=== PATIENT | female | born 1930 | race Asian ===

== ENCOUNTER 2017-04-09 02:22 | Inpatient (IN) | payer MEDICARE, MEDICAID ==
[2017-04-09] VITALS (47 sets, daily range): BP systolic 56–109; BP diastolic 33–64
[~2017-04-09] VITALS: Ht 162.6 cm; Wt 56.7 kg
[~2017-04-09 02:22] MED LIST: ACETAMINOPHEN650 M2 GT; ARICEPT5 MG GT; ASPIR 8181 MG GT; CRESTOR10 M1 GT; CRESTOR10 M1 ORAL; DULCOLAX10 MG RC; HYDRALAZINE HCL25 M1 GT; METOPROLOL TART50 MG GT; MOM30 ML GT; NORVASC2.5 MG GT; TRAMADOL HCL50 MG GT; URECHOLINE10 MG GT
[2017-04-09] MEDS ORDERED: Piperacillin/Tazobactam 3.375 GM in D5W 110 ML IV STA (02:24)
--- NOTE | 2017-04-09 02:24 | Emergency Room Report ---
History of Present Illness General Chief Complaint: Fever Source: Family Member, Medical Record, EMS, PMD Present Illness HPI [id number] BIBEMS from SNF for sepsis Hypotension, "Fever all day." Patient is DNR/DNI Dr Echevarria PMD called for request for tele admission No other family members bedside to provide HPI Patient herself with dementia, non-verbal Allergies: Coded Allergies: No Known Allergies (Unverified , 04/09/17) Patient History Past Medical History: HTN, other - Alzheimers, dementia, HTN Past Surgical History: unable to obtain Pertinent Family History: unable to obtain Social History: Denies: alcohol use, drug use, smoking Last Menstrual Period: N/A Now: No Immunizations: UTD Reviewed Nursing Documentation: PMH: Agreed, PSxH: Agreed Nursing Documentation-PMH Hx Cerebrovascular Accident: Yes Review of Systems All Other Systems: limited - unable to provide. Dementia/Alzheimers Procedures Critical Care Time Critical Care Time 35 minutes 87 YOM with AMS VS c/w hypotension, tachycardia, febrile Sepsis criteria met BP improved with EMS provided fluid bolus with IVF, CA tylenol Airway patent. Not hypoxic. PLAN: IV access, labs, lactate, Blood/Urine Cx, Abx Tele vs [facility] CC time also includes review of labs, EMR, paperwork from SNF, d/w hospitalist Central Line Central Line : Consent: Written - With daughter Central Line Lumen: triple Maximal Sterile Barrier Tech: yes cap, yes mask, yes sterile gown, yes sterile gloves, yes large sterile sheet, yes hand hygiene, yes chlorhexidine prep No Max Barrier Tech Because: emergency insertion Anesthesia: Lidocaine Complications: none Central Line Post Position: sutured, good blood return, position confirmed w / CXR Attempts: One Patient Tolerated: Well Complications: None Medical Decision Making Medicare Attestation I Kimberlee Eisenberg MD hereby attest that the medical record entry for date of service, 09/02/16 accurately reflects signatures/notations that I made in my capacity as MD when I treated/diagnosed the above listed Medicare beneficiary. I attest that this information is true, accurate and complete to the best of my knowledge. I understand that any falsification, omission, or concealment of material fact may subject me to administrative, civil, or criminal liability. This patient warrants hospital admission for extreme of age and has a condition that cannot be treated as outpatient. Diagnostic Impression: Primary Impression: Fever Qualified Codes: R50.9 - Fever, unspecified Additional Impressions: SHAYNE (acute kidney injury) Septic shock UTI (urinary tract infection) Qualified Codes: N30.01 - Acute cystitis with hematuria ER Course Sepsis - VS initially hypotensive. Febrile. Hypoxic. - Patient DNR/DNI. Daughter is bedside. Does NOT want intubation. Agreeable for BIPAP for oxygenation. Set to [id number]. patient initially shaking/cold despite having fever. Was not breathing with the bipap so was given ativan 1mg with improvement in oxygenation - Tylenol given for fever - Patient's BP initially not responsive to IVF NS bolus so central line was placed. Discussed with daughter that this is considered intensive care, but is agreeable despite DNR order. - Levophed started for presumed septic shock - Empiric Abx given - Blood and Urine Cx pending - Labs: No leuks. H&H stable. Lactate 8.5. Mild SHAYNE and elevated LFTs. UA with UTI. Endorsed to Dr Roberts as health plan assigned hospitalist for [facility] admission at 426am. EKG Diagnostic Results Rate: normal, other - first degree block ST Segments: other - ST depressions in v4-6 ASA given to the pt in ED: No Rhythm Strip Diag. Results EP Interpretation: yes Rate: 95 Rhythm: NSR, other - Multiple PVCs Chest X-Ray Diagnostic Results Chest X-Ray Diagnostic Results : Chest X-Ray Ordered: Yes # of Views/Limited/Complete: 1 View Indication: Shortness of Breath EP Interpretation: Yes Interpretation: no consolidation, no effusion, no pneumothorax, no acute cardiopulmonary disease, other - Chronic interstitial disease Impression: Other - See above Interpreting ER Provider: Electronically signed by Dr Eisenberg Other X-Ray Diagnostic Results Other X-Ray Diagnostic Results : X-Ray ordered: CXR # of Views/Limited Vs Complete: 1 View Indication: Other - Central line placement EP Interpretation: Yes Interpretation: other - right central line placement appropriate Impression: No acute disease Status: improved Disposition: ADMITTED INPATIENT Condition: Critical KIMBERLEE EISENBERG M.D. Apr 09, 2017 02:24
[2017-04-09] MEDS ORDERED: NS 1000ml 1,700 ML IVLG ONE (02:30)
[2017-04-09] MEDS ORDERED: Vancomycin 1 GM in NS 275 ML IV ONE (02:30)
[2017-04-09] MEDS ORDERED: Zosyn 3.375gm inj ONE (02:39)
[2017-04-09] MEDS ORDERED: Acetaminophen 650mg/20.3ml ONE (03:13)
[2017-04-09 03:18] LABS: MEAN CORPUSCULAR HEMOGLOBIN 30.7 PG (27.0-31.0); MEAN CORPUSCULAR HGB CONC 31.7 G/DL (32.0-36.0); MEAN CORPUSCULAR VOLUME 97 FL (80-99); MEAN PLATELET VOLUME 6.5 FL (6.5-10.1); PLATELET COUNT 92 K/UL (150-450); RED BLOOD COUNT 4.58 M/UL (4.20-5.40); RED CELL DISTRIBUTION WIDTH 12.3 % (11.6-14.8); WHITE BLOOD COUNT 4.9 K/UL (4.8-10.8)
[2017-04-09 03:19] LABS: ALANINE AMINOTRANSFERASE 43 U/L (3-33); ALBUMIN/GLOBULIN RATIO 0.8 (1.0-2.7); ANION GAP 23 (5-15); ASPARTATE AMINO TRANSFERASE 118 U/L (5-40); CALCIUM 9.2 mg/dL (8.6-10.2); CARBON DIOXIDE 17 mEQ/L (20-30); CHLORIDE 100 mEQ/L (98-107); CREATININE 1.1 mg/dL (0.5-0.9); HEMOLYSIS 29; SODIUM 140 mEQ/L (135-145); TOTAL PROTEIN 6.7 g/dL (6.6-8.7)
[2017-04-09 03:20] LABS: REFLEX LACTIC ACID YES OR NO YES
[2017-04-09] MEDS ORDERED: LIPITOR10 MG ORAL (03:20)
[2017-04-09] MEDS ORDERED: PRO-STAT LIQUID30 ML GT (03:20)
[2017-04-09] MEDS ORDERED: SENNA8.6 M2 GT (03:20)
[2017-04-09] MEDS ORDERED: LORazepam Inj 2mg/ml 1ml ONE (03:21)
[2017-04-09] MEDS ORDERED: Lidocaine 1% Plain 30 ml INJ ONE (03:28)
[2017-04-09 03:29] LABS: APPEARANCE,URINE SLIGHTLY CLOUDY; KETONES,URINE NEGATIVE (NEGATIVE); LEUKOCYTE ESTERASE ,URINE 3+ (NEGATIVE); NITRITE,URINE POSITIVE (NEGATIVE); PH,URINE 8 (4.5-8.0); PROTEIN,URINE 3+ (NEGATIVE); UROBILINOGEN,URINE NORMAL MG/DL (0.0-1.0)
[2017-04-09] MEDS ORDERED: Vancomycin 1gm inj IVPB ONE (03:31)
[2017-04-09] MEDS ORDERED: Levophed 4mg/4mL Inj IV ONE ×2 (03:38→06:25)
[2017-04-09 03:46] LABS: TROPONIN I < 0.30 ng/mL (<=0.30)
[2017-04-09] MEDS ORDERED: Acetaminophen 650mg/20.3ml GT PRN (04:15)
[2017-04-09] MEDS ORDERED: LORazepam Inj 2mg/ml 1ml IV ONE (04:15)
[2017-04-09 04:31] LABS: BACTERIA,URINE MANY /HPF; RBC,URINE 20-30 /HPF (0 - 2); SQUAMOUS EPITHELIAL CELL,UR MANY /LPF (NONE/OCC); WBC,URINE TNTC /HPF (0 - 2)
[2017-04-09 04:32] LABS: CKMB 2.2 ng/mL (< 3.8)
[2017-04-09] MEDS ORDERED: DOPamine 400mg/250ml 250 ML IV ONE (04:39)
[2017-04-09] MEDS ORDERED: DOPamine 400mg/250ml 250 ML IV SCH (04:45)
[2017-04-09] MEDS ORDERED: Vasopressin 100 UNITS in NS 95 ML IV STA (05:37)
[2017-04-09] MEDS: DOPamine 400mg/250ml 250 ML IV SCH ×3 (05:45→09:58)
[2017-04-09 05:57] LABS: BILIRUBIN,DIRECT 0.4 mg/dL (0.1-0.3)
[2017-04-09 07:55] LABS: BAND NEUTROPHILS % (MANUAL) 11 % (0-8); BASOPHILS % (MANUAL) 0 % (0-2); EOSINOPHILS % (MANUAL) 0 % (0-3); LYMPHOCYTES % (MANUAL) 4 % (20-45); NEUTROPHILS % (MANUAL) 84 % (45-75); PLATELET ESTIMATE DECREASED; TOTAL CELLS COUNTED 100
[2017-04-09 07:56] LABS: PLATELET MORPHOLOGY NORMAL
[2017-04-09 09:26] LABS: REFLEX LACTIC ACID YES OR NO YES
[2017-04-09 09:48] LABS: ABG ALLEN TEST POSITIVE; ABG BASE EXCESS -10.3; ABG PCO2 28.6 mmHg (35.0-45.0)
--- NOTE | 2017-04-09 10:57 | Infectious Diseases Prog Note ---
Assessment/Plan Problems: (1) Septic shock Assessment & Plan: with refractory hypotension, will start zosyn and levaquin for double coverage , continue vancomycin renally dosed , continue fluids and pressors (2) UTI (urinary tract infection) Assessment & Plan: await culture, continue zosyn and levaquin (3) Acute respiratory failure Assessment & Plan: due to the above, on BIPAP, pulmonary is following, monitor ABG, and CXR (4) Shock liver Assessment & Plan: due to the above, monitor LFT, will screen for hepatitis (5) Fever Assessment & Plan: due to sepsis, continue tylenol and cooling measures (6) SHAYNE (acute kidney injury) Assessment & Plan: due to septic shock and hypotension, continue hydration and pressors, monitor UOP, renal is following Subjective Allergies: Coded Allergies: No Known Allergies (Unverified , 04/09/17) Objective Vital Signs Last 24 Hour Vital Signs Date Time Temp Pulse Resp B/P Pulse Ox O2 Delivery O2 Flow Rate FiO2 04/09/17 10:45 89 24 96/50 100 Bi-pap 60 04/09/17 09:58 54/37 04/09/17 09:57 54/37 04/09/17 09:29 106 30 100 Facial 60 04/09/17 09:15 108 24 92/52 100 Bi-pap 60 04/09/17 09:10 105 04/09/17 09:00 99.2 103 21 92/52 100 Bi-pap 60 04/09/17 08:45 104 23 89/56 100 Bi-pap 60 04/09/17 08:30 100.0 112 23 95/56 100 Bi-pap 60 04/09/17 08:30 99.3 105 25 104/48 100 Bi-pap 60 04/09/17 08:00 100.0 112 23 95/56 100 Bi-pap 60 04/09/17 07:45 106 24 97/52 100 Bi-pap 60 04/09/17 07:30 110 23 99/58 100 Bi-pap 60 04/09/17 07:30 100/64 04/09/17 07:29 110 24 100 Facial 60 04/09/17 07:15 111 24 100/64 100 Bi-pap 60 04/09/17 07:00 109/57 04/09/17 07:00 109/57 04/09/17 07:00 109 23 109/57 100 Bi-pap 60 04/09/17 07:00 60 04/09/17 06:45 116/63 04/09/17 06:45 116/63 04/09/17 06:20 100.3 112 23 95/55 100 60 04/09/17 05:30 126 22 100 Facial 60 04/09/17 05:22 104/43 04/09/17 05:12 109/53 04/09/17 05:07 102/47 04/09/17 05:02 94/42 04/09/17 05:02 100.3 04/09/17 05:01 100.3 82 16 97/50 100 Bi-pap 60 04/09/17 04:57 97/50 04/09/17 04:52 96/32 04/09/17 04:19 83/51 04/09/17 04:16 108/73 04/09/17 03:26 113 36 70 Facial 60 04/09/17 03:23 60 04/09/17 03:21 101.7 109 93/40 70 Bi-pap 60 04/09/17 02:15 99 30 83/48 95 Room Air Height (Feet): 5 Height (Inches): 5.00 Weight (Pounds): 125 Laboratory Tests Test 04/09/17 02:40 04/09/17 03:05 04/09/17 04:45 04/09/17 09:00 White Blood Count 4.9 K/UL (4.8-10.8) Red Blood Count 4.58 M/UL (4.20-5.40) Hemoglobin 14.1 G/DL (12.0-16.0) Hematocrit 44.5 % (37.0-47.0) Mean Corpuscular Volume 97 FL (80-99) Mean Corpuscular Hemoglobin 30.7 PG (27.0-31.0) Mean Corpuscular Hemoglobin Concent 31.7 G/DL (32.0-36.0) L Red Cell Distribution Width 12.3 % (11.6-14.8) Platelet Count 92 K/UL (150-450) L Mean Platelet Volume 6.5 FL (6.5-10.1) Neutrophils (%) (Auto) % (45.0-75.0) Lymphocytes (%) (Auto) % (20.0-45.0) Monocytes (%) (Auto) % (1.0-10.0) Eosinophils (%) (Auto) % (0.0-3.0) Basophils (%) (Auto) % (0.0-2.0) Differential Total Cells Counted 100 Neutrophils % (Manual) 84 % (45-75) H Lymphocytes % (Manual) 4 % (20-45) L Monocytes % (Manual) 1 % (1-10) Eosinophils % (Manual) 0 % (0-3) Basophils % (Manual) 0 % (0-2) Band Neutrophils 11 % (0-8) H Platelet Estimate Decreased L Platelet Morphology Normal Red Blood Cell Morphology Normal Sodium Level 140 mEQ/L (135-145) Potassium Level 4.0 mEQ/L (3.4-4.9) Chloride Level 100 mEQ/L (98-107) Carbon Dioxide Level 17 mEQ/L (20-30) L Anion Gap 23 (5-15) H Blood Urea Nitrogen 21 mg/dL (7-23) Creatinine 1.1 mg/dL (0.5-0.9) H Estimat Glomerular Filtration Rate mL/min (>60) Glucose Level 121 mg/dL (74-106) H Lactic Acid Level 8.50 mmol/L (0.66-2.22) H 9.30 mmol/L (0.66-2.22) H 8.00 mmol/L (0.66-2.22) H Calcium Level 9.2 mg/dL (8.6-10.2) Total Bilirubin 1.1 mg/dL (0.0-1.2) Direct Bilirubin 0.4 mg/dL (0.1-0.3) H Aspartate Amino Transf (AST/SGOT) 118 U/L (5-40) H Alanine Aminotransferase (ALT/SGPT) 43 U/L (3-33) H Alkaline Phosphatase 127 U/L (35-104) H Total Creatine Kinase 49 U/L (26-140) Creatine Kinase MB 2.2 ng/mL (< 3.8) Creatine Kinase MB Relative Index 4.4 Troponin I < 0.30 ng/mL (<=0.30) Total Protein 6.7 g/dL (6.6-8.7) Albumin 3.1 g/dL (3.5-5.2) L Globulin 3.6 g/dL Albumin/Globulin Ratio 0.8 (1.0-2.7) L Urine Color Yellow Urine Appearance Slightly cloudy Urine pH 8 (4.5-8.0) Urine Specific [place] 1.010 (1.005-1.035) Urine Protein 3+ (NEGATIVE) H Urine Glucose (UA) Negative (NEGATIVE) Urine Ketones Negative (NEGATIVE) Urine Occult Blood 5+ (NEGATIVE) H Urine Nitrite Positive (NEGATIVE) H Urine Bilirubin Negative (NEGATIVE) Urine Urobilinogen Normal MG/DL (0.0-1.0) Urine Leukocyte Esterase 3+ (NEGATIVE) H Urine RBC 20-30 /HPF (0 - 2) H Urine WBC Tntc /HPF (0 - 2) H Urine Squamous Epithelial Cells Many /LPF (NONE/OCC) H Urine Bacteria Many /HPF (NONE) H Test 04/09/17 09:30 Arterial Blood pH 7.314 (7.350-7.450) Arterial Blood Partial Pressure CO2 28.6 mmHg (35.0-45.0) L Arterial Blood Partial Pressure O2 240.3 mmHg (75.0-100.0) H Arterial Blood HCO3 14.4 mmol/L (22.0-26.0) L Arterial Blood Oxygen Saturation 99.4 % (92.0-98.0) H Arterial Blood Base Excess -10.3 Cam Test Positive Current Medications Medications (Trade) Dose Ordered Sig/Yissel Route PRN Reason Start Time Stop Time Status Last Admin Dose Admin Acetaminophen (Tylenol) 650 mg Q4H PRN ORAL Mild Pain (Pain Scale 1-3) 04/09/17 08:00 05/09/17 07:59 Dextrose STAT PRN IV Hypoglycemia 04/09/17 08:00 05/09/17 07:59 Dopamine HCl/ Dextrose 250 ml @ 0 mls/hr Q24H IV 04/09/17 09:30 05/09/17 09:29 04/09/17 09:58 Heparin Sodium (Porcine) (Heparin 5000 units/ml) 5,000 units EVERY 12 HOURS SUBQ 04/09/17 21:00 05/09/17 20:59 UNV Norepinephrine Bitartrate/ Dextrose (Levophed/D5W) 250 ml @ 0 mls/hr Q24H IV 04/09/17 09:30 05/09/17 09:29 04/09/17 09:57 Pantoprazole 40 mg 40 mg DAILY IVP 04/09/17 11:00 05/09/17 10:59 Piperacillin Sod/ Tazobactam Sod/ Dextrose (Zosyn/D5W) 110 ml @ 27.5 mls/hr Q8HR IVPB 04/09/17 12:00 04/16/17 11:59 Sodium Chloride (Sodium Chloride 1000ml bag) 1,000 ml @ 150 mls/hr Q6H40M IVLG 04/10/17 11:00 05/10/17 10:59 Vancomycin HCl 750 mg/Dextrose 275 ml @ 183.708 mls/hr Q24H IVPB 04/10/17 02:00 04/15/17 01:59 Vancomycin HCl 1 ea 1 ea DAILY PRN MISC Per rx protocol 04/09/17 10:30 05/09/17 10:29 Alberto Philip M.D. Apr 09, 2017 10:57
[2017-04-09] MEDS ORDERED: Pantoprazole Inj IVP SCH (11:00)
[2017-04-09] MEDS ORDERED: Zosyn 3.375gm q8h **Extended infusion IVPB SCH ×2 (12:00)
[2017-04-09] MEDS: Piperacillin/Tazobactam 4.5 GM in D5W 110 ML IVPB SCH ×2 (13:42→22:05)
[2017-04-09] MEDS ORDERED: Norepinephrine Bitartrate 8 MG in D5W 500ml 550 ML IV SCH ×2 (14:30→20:04)
--- NOTE | 2017-04-09 15:01 | Diagnostic Imaging Report ---
Indication: Post line placement Technique: One view of the chest Comparison: 1-1/2 hour earlier Findings: Interim placement right jugular central venous catheter, tip of which projects at level of the midsuperior vena cava. No gross pneumothorax is evident. There is central bronchial wall thickening and possible mild bronchiectasis again demonstrated. Heart is borderline enlarged. Tortuous ectatic calcified aorta Impression: Satisfactory right jugular central venous catheter placement, no radiographically evident complication COPD changes Borderline cardiomegaly This agrees with the preliminary interpretation provided by the emergency room physician
--- NOTE | 2017-04-09 15:02 | Diagnostic Imaging Report ---
Indication: SOB Technique: One view of the chest Comparison: 02/10/2013 Findings: Chronic appearing central interstitial prominence and bronchial wall thickening is again demonstrated. No acute infiltrates or effusions. The heart is mildly enlarged. Tortuous ectatic calcified aorta. No significant interim change Impression: No acute process. Findings as noted This agrees with the preliminary interpretation provided by the emergency room physician
--- NOTE | 2017-04-09 15:27 | History and Physical ---
History of Present Illness General Reason for Hospitalization: Fever Present Illness HPI This is an 87yr old female with a PMHx significant for HTN, dementia, and Alzheimer, who [facility] by the EMS under the direction of Dr Echevarria PCP for sepsis, hypotension and fever. Patient is DNR/ DNI. Pt is non verbal therefore information was obtained from medical records. In ED pt was found to have of Lactate 8.5. Mild SHAYNE and elevated LFTs. UA with UTI. Allergies: Coded Allergies: No Known Allergies (Unverified , 04/09/17) Medication History Scheduled Amino Acids/Protein Hydrolys (Pro-Stat Liquid), 30 ML GT DAILY, (Reported) Amlodipine Besylate (Norvasc), 2.5 MG GT DAILY, (Reported) Aspirin* (Aspir 81*), 81 MG GT DAILY, (Reported) Atorvastatin Calcium* (Lipitor*), 10 MG ORAL BEDTIME, (Reported) Bethanechol Chl (Bethanechol Chloride), 10 MG GT FOUR TIMES A DAY, (Reported) Donepezil Hcl* (Aricept*), 5 MG GT QHS, (Reported) Metoprolol Tartrate* (Metoprolol Tartrate*), 50 MG GT TID, (Reported) Rosuvastatin Calcium (Crestor), 10 MG GT QHS, (Reported) Scheduled PRN Acetaminophen (Acetaminophen 8 Hour), 650 MG GT QID PRN, (Reported) Bisacodyl (Dulcolax), 10 MG RC DAILY PRN, (Reported) Hydralazine Hcl* (Hydralazine Hcl*), 25 MG GT QID PRN, (Reported) Magnesium Hydroxide (Milk of Magnesia), 30 ML GT DAILY PRN, (Reported) Tramadol Hcl* (Ultram*), 50 MG GT QID PRN, (Reported) Miscellaneous Medications Sennosides (Senna), 8.6 MG GT, (Reported) Patient History Limited by: medical condition History Provided By: Medical Record Healthcare decision maker Resuscitation status Do Not Resuscitate Advanced Directive on File Yes Past Medical/Surgical History Past Medical/Surgical History: (1) HTN (hypertension) (2) Dementia (3) Alzheimer's dementia Social History Social History: (1) Lives in [facility] (2) Non-smoker (3) No history of alcohol use (4) No illicit drug use Review of Systems ROS Narrative Unobtainable Physical Exam General Appearance: no apparent distress HEENT: normocephalic, atraumatic Neck: non-tender, normal alignment Respiratory/Chest: decreased breath sounds, other - on BIPAP Cardiovascular/Chest: no JVD Abdomen: soft, no organomegaly Genitourinary/Rectal: woo, other Extremities: no edema, no cyanosis Skin Exam: warm/dry Neurologic: motor weakness Last 24 Hour Vital Signs Date Time Temp Pulse Resp B/P Pulse Ox O2 Delivery O2 Flow Rate FiO2 04/09/17 15:00 94 22 106/52 100 Bi-pap 40 04/09/17 14:55 98/62 04/09/17 14:30 98 22 92/49 100 Bi-pap 40 04/09/17 14:00 97 22 95/56 100 Bi-pap 40 04/09/17 13:30 92 22 98/48 100 Bi-pap 40 04/09/17 13:18 92 23 100 Facial 40 04/09/17 13:00 89 20 97/50 100 Bi-pap 40 04/09/17 12:40 88/45 04/09/17 12:30 98.9 93 21 80/44 100 Bi-pap 40 04/09/17 12:15 91 21 88/45 100 Bi-pap 40 04/09/17 12:00 40 04/09/17 12:00 91 21 90/47 100 Bi-pap 40 04/09/17 11:45 95 21 92/51 100 Bi-pap 40 04/09/17 11:30 91 21 96/48 100 Bi-pap 40 04/09/17 11:15 92 21 96/46 100 Bi-pap 60 04/09/17 11:09 91 22 100 Full Face 40 04/09/17 11:00 92 20 96/41 100 Bi-pap 60 04/09/17 11:00 40 04/09/17 10:45 89 24 96/50 100 Bi-pap 60 04/09/17 10:30 95 24 86/51 100 Bi-pap 60 04/09/17 10:15 95 24 71/42 100 Bi-pap 60 04/09/17 10:00 97 22 72/44 100 Bi-pap 60 04/09/17 09:58 54/37 04/09/17 09:57 54/37 04/09/17 09:45 87 22 56/33 100 Bi-pap 60 04/09/17 09:30 101 22 99/54 100 Bi-pap 60 04/09/17 09:29 106 30 100 Facial 60 04/09/17 09:15 108 24 92/52 100 Bi-pap 60 04/09/17 09:10 105 04/09/17 09:00 99.2 103 21 92/52 100 Bi-pap 60 04/09/17 08:45 104 23 89/56 100 Bi-pap 60 04/09/17 08:30 100.0 112 23 95/56 100 Bi-pap 60 04/09/17 08:30 99.3 105 25 104/48 100 Bi-pap 60 04/09/17 08:00 100.0 112 23 95/56 100 Bi-pap 60 04/09/17 07:45 106 24 97/52 100 Bi-pap 60 04/09/17 07:30 110 23 99/58 100 Bi-pap 60 04/09/17 07:30 100/64 04/09/17 07:29 110 24 100 Facial 60 04/09/17 07:15 111 24 100/64 100 Bi-pap 60 04/09/17 07:00 109/57 04/09/17 07:00 109/57 04/09/17 07:00 109 23 109/57 100 Bi-pap 60 04/09/17 07:00 60 04/09/17 06:45 116/63 04/09/17 06:45 116/63 04/09/17 06:20 100.3 112 23 95/55 100 60 04/09/17 05:30 126 22 100 Facial 60 04/09/17 05:22 104/43 04/09/17 05:12 109/53 04/09/17 05:07 102/47 04/09/17 05:02 94/42 04/09/17 05:02 100.3 04/09/17 05:01 100.3 82 16 97/50 100 Bi-pap 60 04/09/17 04:57 97/50 04/09/17 04:52 96/32 04/09/17 04:19 83/51 04/09/17 04:16 108/73 04/09/17 03:26 113 36 70 Facial 60 04/09/17 03:23 60 04/09/17 03:21 101.7 109 93/40 70 Bi-pap 60 04/09/17 02:15 99 30 83/48 95 Room Air Intake and Output 04/08/17 04/09/17 19:00 07:00 Intake Total 99.51 ml Output Total 1500 ml Balance -1400.49 ml Intake IV Total 99.51 ml Output Urine Total 1500 ml Laboratory Tests Test 04/09/17 02:40 04/09/17 03:05 04/09/17 04:45 04/09/17 09:00 White Blood Count 4.9 K/UL (4.8-10.8) Red Blood Count 4.58 M/UL (4.20-5.40) Hemoglobin 14.1 G/DL (12.0-16.0) Hematocrit 44.5 % (37.0-47.0) Mean Corpuscular Volume 97 FL (80-99) Mean Corpuscular Hemoglobin 30.7 PG (27.0-31.0) Mean Corpuscular Hemoglobin Concent 31.7 G/DL (32.0-36.0) L Red Cell Distribution Width 12.3 % (11.6-14.8) Platelet Count 92 K/UL (150-450) L Mean Platelet Volume 6.5 FL (6.5-10.1) Neutrophils (%) (Auto) % (45.0-75.0) Lymphocytes (%) (Auto) % (20.0-45.0) Monocytes (%) (Auto) % (1.0-10.0) Eosinophils (%) (Auto) % (0.0-3.0) Basophils (%) (Auto) % (0.0-2.0) Differential Total Cells Counted 100 Neutrophils % (Manual) 84 % (45-75) H Lymphocytes % (Manual) 4 % (20-45) L Monocytes % (Manual) 1 % (1-10) Eosinophils % (Manual) 0 % (0-3) Basophils % (Manual) 0 % (0-2) Band Neutrophils 11 % (0-8) H Platelet Estimate Decreased L Platelet Morphology Normal Red Blood Cell Morphology Normal Sodium Level 140 mEQ/L (135-145) Potassium Level 4.0 mEQ/L (3.4-4.9) Chloride Level 100 mEQ/L (98-107) Carbon Dioxide Level 17 mEQ/L (20-30) L Anion Gap 23 (5-15) H Blood Urea Nitrogen 21 mg/dL (7-23) Creatinine 1.1 mg/dL (0.5-0.9) H Estimat Glomerular Filtration Rate mL/min (>60) Glucose Level 121 mg/dL (74-106) H Lactic Acid Level 8.50 mmol/L (0.66-2.22) H 9.30 mmol/L (0.66-2.22) H 8.00 mmol/L (0.66-2.22) H Calcium Level 9.2 mg/dL (8.6-10.2) Total Bilirubin 1.1 mg/dL (0.0-1.2) Direct Bilirubin 0.4 mg/dL (0.1-0.3) H Aspartate Amino Transf (AST/SGOT) 118 U/L (5-40) H Alanine Aminotransferase (ALT/SGPT) 43 U/L (3-33) H Alkaline Phosphatase 127 U/L (35-104) H Total Creatine Kinase 49 U/L (26-140) Creatine Kinase MB 2.2 ng/mL (< 3.8) Creatine Kinase MB Relative Index 4.4 Troponin I < 0.30 ng/mL (<=0.30) Total Protein 6.7 g/dL (6.6-8.7) Albumin 3.1 g/dL (3.5-5.2) L Globulin 3.6 g/dL Albumin/Globulin Ratio 0.8 (1.0-2.7) L Urine Color Yellow Urine Appearance Slightly cloudy Urine pH 8 (4.5-8.0) Urine Specific [place] 1.010 (1.005-1.035) Urine Protein 3+ (NEGATIVE) H Urine Glucose (UA) Negative (NEGATIVE) Urine Ketones Negative (NEGATIVE) Urine Occult Blood 5+ (NEGATIVE) H Urine Nitrite Positive (NEGATIVE) H Urine Bilirubin Negative (NEGATIVE) Urine Urobilinogen Normal MG/DL (0.0-1.0) Urine Leukocyte Esterase 3+ (NEGATIVE) H Urine RBC 20-30 /HPF (0 - 2) H Urine WBC Tntc /HPF (0 - 2) H Urine Squamous Epithelial Cells Many /LPF (NONE/OCC) H Urine Bacteria Many /HPF (NONE) H Test 04/09/17 09:30 Arterial Blood pH 7.314 (7.350-7.450) Arterial Blood Partial Pressure CO2 28.6 mmHg (35.0-45.0) L Arterial Blood Partial Pressure O2 240.3 mmHg (75.0-100.0) H Arterial Blood HCO3 14.4 mmol/L (22.0-26.0) L Arterial Blood Oxygen Saturation 99.4 % (92.0-98.0) H Arterial Blood Base Excess -10.3 Cam Test Positive Height (Feet): 5 Height (Inches): 4.00 Weight (Pounds): 125 Medications Current Medications Medications (Trade) Dose Ordered Sig/Yissel Route PRN Reason Start Time Stop Time Status Last Admin Dose Admin Acetaminophen (Tylenol) 650 mg Q4H PRN ORAL Mild Pain (Pain Scale 1-3) 04/09/17 08:00 05/09/17 07:59 Albumin Human 50 ml @ 50 mls/hr Q1H IV 04/09/17 12:30 04/09/17 16:29 04/09/17 14:54 Dextrose STAT PRN IV Hypoglycemia 04/09/17 08:00 05/09/17 07:59 Dopamine HCl/ Dextrose (DOPamine 400mg/ 250ml) 250 ml @ 0 mls/hr Q24H IV 04/09/17 09:30 05/09/17 09:29 04/09/17 09:58 Heparin Sodium (Porcine) (Heparin 5000 units/ml) 5,000 units EVERY 12 HOURS SUBQ 04/09/17 21:00 05/09/17 20:59 UNV Levofloxacin 100 ml @ 100 mls/hr Q24H IVPB 04/09/17 12:00 04/16/17 11:59 04/09/17 13:00 Norepinephrine Bitartrate/ Dextrose (Levophed/D5W 500ml) 558 ml @ 0 mls/hr Q24H IV 04/09/17 14:30 05/09/17 14:29 04/09/17 14:55 Pantoprazole 40 mg 40 mg DAILY IVP 04/09/17 11:00 05/09/17 10:59 04/09/17 12:05 Piperacillin Sod/ Tazobactam Sod 4.5 gm/Dextrose 110 ml @ 27.5 mls/hr EVERY 8 HOURS IVPB 04/09/17 13:00 04/14/17 12:59 04/09/17 13:42 Sodium Chloride (Sodium Chloride 1000ml bag) 1,000 ml @ 150 mls/hr Q6H40M IVLG 04/10/17 11:00 05/10/17 10:59 Vancomycin HCl 750 mg/Dextrose 275 ml @ 183.708 mls/hr Q24H IVPB 04/10/17 02:00 04/15/17 01:59 Vancomycin HCl 1 ea 1 ea DAILY PRN MISC Per rx protocol 04/09/17 10:30 05/09/17 10:29 Assessment/Plan Problem List: (1) Sepsis ICD Codes: A41.9 - Sepsis, unspecified organism SNOMED: 72825933 Qualifiers: Qualified Codes: A41.9 - Sepsis, unspecified organism (2) Hypotension ICD Codes: I95.9 - Hypotension, unspecified SNOMED: 73009890 (3) bipap (4) Acute respiratory failure ICD Codes: J96.00 - Acute respiratory failure, unspecified whether with hypoxia or hypercapnia SNOMED: 10450568 (5) Septic shock ICD Codes: A41.9 - Sepsis, unspecified organism; R65.21 - Severe sepsis with septic shock SNOMED: 31233264 (6) Fever ICD Codes: R50.9 - Fever, unspecified SNOMED: 747268613 Qualifiers: Qualified Codes: R50.9 - Fever, unspecified (7) UTI (urinary tract infection) ICD Codes: N39.0 - Urinary tract infection, site not specified SNOMED: 64643031 Qualifiers: Qualified Codes: N30.01 - Acute cystitis with hematuria (8) Shock liver ICD Codes: K72.00 - Acute and subacute hepatic failure without coma SNOMED: 118303816 (9) SHAYNE (acute kidney injury) ICD Codes: N17.9 - Acute kidney failure, unspecified SNOMED: 96493301 (10) Dementia ICD Codes: F03.90 - Unspecified dementia without behavioral disturbance SNOMED: 55657151 (11) Alzheimer's dementia ICD Codes: G30.9 - Alzheimer's disease, unspecified SNOMED: 53066870 (12) Anemia of chronic disease ICD Codes: D63.8 - Anemia in other chronic diseases classified elsewhere SNOMED: 264832741 Assessment/Plan Continue current treatment plan Cardio and pulmo following Monitor lytes Continue BIPAP Continue Levophed Abx per ID Monitor neuro status DVT prophylaxis with SCD Monitor intake and output - continue woo AM labs Rosa Isela Villavicencio N.P. Apr 09, 2017 15:27
[2017-04-09 16:56] LABS: REFLEX LACTIC ACID YES OR NO YES
--- NOTE | 2017-04-09 17:37 | Cardiac Electrophysiology PN ---
Subjective Subjective [id number]. Septic shock, Fib, PEG, Resp failure, Dementia, DNR,DNI Objective Last 24 Hour Vital Signs Date Time Temp Pulse Resp B/P Pulse Ox O2 Delivery O2 Flow Rate FiO2 04/09/17 16:58 95 33 100 Facial 40 04/09/17 15:29 96 27 100 Facial 40 04/09/17 15:00 106/52 04/09/17 15:00 94 22 106/52 100 Bi-pap 40 04/09/17 14:55 98/62 04/09/17 14:30 98 22 92/49 100 Bi-pap 40 04/09/17 14:00 97 22 95/56 100 Bi-pap 40 04/09/17 14:00 89/69 04/09/17 13:30 92 22 98/48 100 Bi-pap 40 04/09/17 13:18 92 23 100 Facial 40 04/09/17 13:00 89 20 97/50 100 Bi-pap 40 04/09/17 13:00 97/50 04/09/17 12:40 88/45 04/09/17 12:30 98.9 93 21 80/44 100 Bi-pap 40 04/09/17 12:15 91 21 88/45 100 Bi-pap 40 04/09/17 12:00 40 04/09/17 12:00 91 21 90/47 100 Bi-pap 40 04/09/17 12:00 90/47 04/09/17 11:45 95 21 92/51 100 Bi-pap 40 04/09/17 11:30 91 21 96/48 100 Bi-pap 40 04/09/17 11:15 92 21 96/46 100 Bi-pap 60 04/09/17 11:09 91 22 100 Full Face 40 04/09/17 11:00 92 20 96/41 100 Bi-pap 60 04/09/17 11:00 96/41 04/09/17 11:00 40 04/09/17 10:45 89 24 96/50 100 Bi-pap 60 04/09/17 10:30 95 24 86/51 100 Bi-pap 60 04/09/17 10:15 95 24 71/42 100 Bi-pap 60 04/09/17 10:00 72/44 04/09/17 10:00 97 22 72/44 100 Bi-pap 60 04/09/17 09:58 54/37 04/09/17 09:57 54/37 04/09/17 09:45 87 22 56/33 100 Bi-pap 60 04/09/17 09:30 101 22 99/54 100 Bi-pap 60 04/09/17 09:29 106 30 100 Facial 60 04/09/17 09:15 108 24 92/52 100 Bi-pap 60 04/09/17 09:10 105 04/09/17 09:00 99.2 103 21 92/52 100 Bi-pap 60 04/09/17 09:00 92/52 04/09/17 08:45 104 23 89/56 100 Bi-pap 60 04/09/17 08:30 100.0 112 23 95/56 100 Bi-pap 60 04/09/17 08:30 99.3 105 25 104/48 100 Bi-pap 60 04/09/17 08:00 100.0 112 23 95/56 100 Bi-pap 60 04/09/17 07:45 106 24 97/52 100 Bi-pap 60 04/09/17 07:30 110 23 99/58 100 Bi-pap 60 04/09/17 07:30 100/64 04/09/17 07:29 110 24 100 Facial 60 04/09/17 07:15 111 24 100/64 100 Bi-pap 60 04/09/17 07:00 109/57 04/09/17 07:00 109/57 04/09/17 07:00 109 23 109/57 100 Bi-pap 60 04/09/17 07:00 60 04/09/17 06:45 116/63 04/09/17 06:45 116/63 04/09/17 06:20 100.3 112 23 95/55 100 60 04/09/17 05:30 126 22 100 Facial 60 04/09/17 05:22 104/43 04/09/17 05:12 109/53 04/09/17 05:07 102/47 04/09/17 05:02 94/42 04/09/17 05:02 100.3 04/09/17 05:01 100.3 82 16 97/50 100 Bi-pap 60 04/09/17 04:57 97/50 04/09/17 04:52 96/32 04/09/17 04:19 83/51 7/12/17 04:16 108/73 04/09/17 03:26 113 36 70 Facial 60 04/09/17 03:23 60 04/09/17 03:21 101.7 109 93/40 70 Bi-pap 60 04/09/17 02:15 99 30 83/48 95 Room Air Intake and Output 04/08/17 04/09/17 19:00 07:00 Intake Total 99.51 ml Output Total 1500 ml Balance -1400.49 ml Intake IV Total 99.51 ml Output Urine Total 1500 ml Laboratory Tests Test 04/09/17 02:40 04/09/17 03:05 04/09/17 04:45 04/09/17 09:00 White Blood Count 4.9 K/UL (4.8-10.8) Red Blood Count 4.58 M/UL (4.20-5.40) Hemoglobin 14.1 G/DL (12.0-16.0) Hematocrit 44.5 % (37.0-47.0) Mean Corpuscular Volume 97 FL (80-99) Mean Corpuscular Hemoglobin 30.7 PG (27.0-31.0) Mean Corpuscular Hemoglobin Concent 31.7 G/DL (32.0-36.0) L Red Cell Distribution Width 12.3 % (11.6-14.8) Platelet Count 92 K/UL (150-450) L Mean Platelet Volume 6.5 FL (6.5-10.1) Neutrophils (%) (Auto) % (45.0-75.0) Lymphocytes (%) (Auto) % (20.0-45.0) Monocytes (%) (Auto) % (1.0-10.0) Eosinophils (%) (Auto) % (0.0-3.0) Basophils (%) (Auto) % (0.0-2.0) Differential Total Cells Counted 100 Neutrophils % (Manual) 84 % (45-75) H Lymphocytes % (Manual) 4 % (20-45) L Monocytes % (Manual) 1 % (1-10) Eosinophils % (Manual) 0 % (0-3) Basophils % (Manual) 0 % (0-2) Band Neutrophils 11 % (0-8) H Platelet Estimate Decreased L Platelet Morphology Normal Red Blood Cell Morphology Normal Sodium Level 140 mEQ/L (135-145) Potassium Level 4.0 mEQ/L (3.4-4.9) Chloride Level 100 mEQ/L (98-107) Carbon Dioxide Level 17 mEQ/L (20-30) L Anion Gap 23 (5-15) H Blood Urea Nitrogen 21 mg/dL (7-23) Creatinine 1.1 mg/dL (0.5-0.9) H Estimat Glomerular Filtration Rate mL/min (>60) Glucose Level 121 mg/dL (74-106) H Lactic Acid Level 8.50 mmol/L (0.66-2.22) H 9.30 mmol/L (0.66-2.22) H 8.00 mmol/L (0.66-2.22) H Calcium Level 9.2 mg/dL (8.6-10.2) Total Bilirubin 1.1 mg/dL (0.0-1.2) Direct Bilirubin 0.4 mg/dL (0.1-0.3) H Aspartate Amino Transf (AST/SGOT) 118 U/L (5-40) H Alanine Aminotransferase (ALT/SGPT) 43 U/L (3-33) H Alkaline Phosphatase 127 U/L (35-104) H Total Creatine Kinase 49 U/L (26-140) Creatine Kinase MB 2.2 ng/mL (< 3.8) Creatine Kinase MB Relative Index 4.4 Troponin I < 0.30 ng/mL (<=0.30) Total Protein 6.7 g/dL (6.6-8.7) Albumin 3.1 g/dL (3.5-5.2) L Globulin 3.6 g/dL Albumin/Globulin Ratio 0.8 (1.0-2.7) L Urine Color Yellow Urine Appearance Slightly cloudy Urine pH 8 (4.5-8.0) Urine Specific [place] 1.010 (1.005-1.035) Urine Protein 3+ (NEGATIVE) H Urine Glucose (UA) Negative (NEGATIVE) Urine Ketones Negative (NEGATIVE) Urine Occult Blood 5+ (NEGATIVE) H Urine Nitrite Positive (NEGATIVE) H Urine Bilirubin Negative (NEGATIVE) Urine Urobilinogen Normal MG/DL (0.0-1.0) Urine Leukocyte Esterase 3+ (NEGATIVE) H Urine RBC 20-30 /HPF (0 - 2) H Urine WBC Tntc /HPF (0 - 2) H Urine Squamous Epithelial Cells Many /LPF (NONE/OCC) H Urine Bacteria Many /HPF (NONE) H Test 04/09/17 09:30 04/09/17 16:05 Arterial Blood pH 7.314 (7.350-7.450) Arterial Blood Partial Pressure CO2 28.6 mmHg (35.0-45.0) L Arterial Blood Partial Pressure O2 240.3 mmHg (75.0-100.0) H Arterial Blood HCO3 14.4 mmol/L (22.0-26.0) L Arterial Blood Oxygen Saturation 99.4 % (92.0-98.0) H Arterial Blood Base Excess -10.3 Cam Test Positive Lactic Acid Level 5.30 mmol/L (0.66-2.22) H JEET MONTE Apr 09, 2017 17:37
[2017-04-09] MEDS: Dyna-Hex 2% Top Sol 8oz TOPIC SCH (20:35)
[2017-04-09] MEDS: Norepinephrine Bitartrate 8 MG in D5W 500ml 550 ML IV SCH (20:42)
[2017-04-09] MEDS ORDERED: Heparin 5000 units/ml inj SUBQ SCH (21:00)
--- NOTE | 2017-04-09 21:40 | Consultation ---
DATE OF CONSULTATION: 04/09/2017 PULMONARY CONSULTATION HISTORY OF PRESENT ILLNESS: This is an 87-year-old female, brought into the shelter with sepsis. She was apparently hypotensive and running fever all day. The patient is a known DNR/DNI. The patient was subsequently seen and worked up and admitted to the hospital for management and care. At this time, the patient is on a BiPAP and on pressors. PAST MEDICAL HISTORY: Dementia, Alzheimer's, and hypertension. MEDICATIONS: Her list of medications in the hospital include broad-spectrum antibiotics. She received Zosyn in the emergency room. She presently on Levophed and Jalen-Synephrine. SOCIAL HISTORY: Not obtainable. She is shelter resident. FAMILY HISTORY: Not obtainable. PHYSICAL EXAMINATION: GENERAL: Reveals an elderly female. She is on a BiPAP. VITAL SIGNS: Blood pressure 90/50, heart rate 104, and respirations 22. She is afebrile. HEENT: Unremarkable. CHEST: Clear breath sounds bilaterally with normal heart sound. ABDOMEN: Soft. EXTREMITIES: There is no edema. LABORATORY AND DIAGNOSTIC DATA: Lab testing shows white count 4.9, hemoglobin of 14. Creatinine 1.1. Lactic acid is high at 8. Imaging studies, none reported. Review of ER notes, the patient has evidence of UTI. She is DNR/DNI. IMPRESSION: 1. Urinary tract infection. 2. Septic, septic shock. 3. Do Not Intubate. 4. Respiratory failure on BiPAP. 5. Dementia. 6. . DISCUSSION: Broad-spectrum antibiotics. The patient need central line, Levophed, pressors. We will continue BiPAP. 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 Edd Goins M.D. DR: SHAMAR JOB#: [id number] CC:
--- NOTE | 2017-04-09 21:40 | Consultation ---
DATE OF CONSULTATION: INFECTIOUS DISEASE CONSULTATION REQUESTING PHYSICIAN: Ja Damon M.D. REASON FOR CONSULTATION: Septic shock with fever. Recommendation for antibiotics treatments. HISTORY OF PRESENT ILLNESS: The patient is an 87-year-old female, alf facility resident, was sent to the emergency room at [facility] for fever and hypotension at the facility. The patient had temperature of 101 degrees and high. She was hypotensive and hypoxemic. The patient has dementia and nonverbal, does not provide any history. History was mainly obtained from the medical record and the nursing staff. The patient was found to be hypotensive and hypoxemic. In the emergency room, she was started on BiPAP, given bolus of fluids and pressor. She received antibiotics and admitted to the intensive care unit for further evaluation and management and I was consulted by the primary provider for antibiotics treatment and further care. As of note, the patient is poor historian and cannot provide history. No family member available to obtain history. PAST MEDICAL HISTORY: Significant for dementia and hypertension. PAST SURGICAL HISTORY: Unknown. MEDICATIONS: The patient received vancomycin and Zosyn in the emergency room. For the rest of the medications, please refer to MAR. ALLERGIES: She has no known drug allergy. SOCIAL HISTORY: She is a alf facility resident. No recent drugs, tobacco or alcohol. FAMILY HISTORY: Unknown. REVIEW OF SYSTEMS: Unable to obtain at this point. The patient cannot provide any history. PHYSICAL EXAMINATION: GENERAL: The patient is an elderly female demented, laying in bed, unresponsive on BiPAP, not in distress. VITAL SIGNS: Temperature 99.2 degrees, pulse of 80, respirations 21, blood pressure 92/62 and saturation 100% on BiPAP with FiO2 of 60%. HEENT: Normocephalic and atraumatic. Pupils are reactive to light. Unable to assess oral mucosa. NECK: Supple. No lymphadenopathy. CARDIOVASCULAR: She is tachycardic. S1 and S2 normal. No gallop. LUNGS: She had diminished breathing sounds at the bases with crackles. No respiratory distress. ABDOMEN: Soft, nontender, and nondistended. Positive bowel sounds. No hepatosplenomegaly or ascites. EXTREMITIES: No edema or cyanosis. SKIN: No rash or hives. LABORATORY AND DIAGNOSTIC DATA: BUN of 21 and creatinine of 1.1. AST of 118 and ALT of 43. CBC showed white count of 4.9, hemoglobin of 14.1, and platelet count of 92,000. Urinalysis showed significant infection with +3 leukocyte esterase, WBC too numerous to count, and many bacteria in the urine. Imaging, chest x-ray showed no effusion. No acute infiltration or chronic interstitial changes. ASSESSMENT AND PLAN: 1. Septic shock with refractory hypotension. We will start the patient on Zosyn and Levaquin for double coverage to cover for urosepsis. Continue vancomycin renally dosed for now. Encourage fluid boluses and pressor to keep systolic blood pressure more than 100. 2. Urinary tract infection and most likely the source of her sepsis. We will continue Zosyn and Levaquin for now double coverage till we identified the exact organism, tailor antibiotics as needed. 3. Acute respiratory failure due to septic shock on BiPAP. Pulmonary is following. Monitor ABG and chest x-ray. 4. Liver shock due to the above. Monitor liver function tests. Screen for hepatitis. 5. Fever due to sepsis and urinary tract infection. Continue Tylenol including measure to keep temperature well controlled. 6. Acute kidney failure due to septic shock and hypertension. Continue hydration and pressor support, blood pressure. Monitor urine output. Nephrology is following. Alberto Philip M.D. DR: KELSEY JOB#: [id number] CC:
[2017-04-10] VITALS (65 sets, daily range): BP systolic 79–125; BP diastolic 51–93
[2017-04-10] MEDS ORDERED: Vancomycin 750mg/D5W 275ml IVPB SCH ×2 (02:00)
[2017-04-10] MEDS: Norepinephrine Bitartrate 8 MG in D5W 500ml 550 ML IV SCH ×3 (02:05→19:38)
[2017-04-10 05:00] LABS: MEAN CORPUSCULAR HEMOGLOBIN 30.6 PG (27.0-31.0); MEAN CORPUSCULAR VOLUME 96 FL (80-99); PLATELET COUNT 49 K/UL (150-450); RED CELL DISTRIBUTION WIDTH 12.3 % (11.6-14.8)
--- NOTE | 2017-04-10 05:01 | Consultation ---
DATE OF CONSULTATION: 04/09/2017 CARDIOLOGY CONSULTATION CONSULTING PHYSICIAN: Maximiliano Frazier M.D. REFERRING PHYSICIAN: Ja Damon M.D. REASON FOR CONSULTATION: Shock. HISTORY OF PRESENT ILLNESS: The patient is an 87-year-old lady with history of hypertension and Alzheimer dementia, who was brought in from [facility] by paramedics for sepsis and hypotension. The patient is DNR and DNI and is nonverbal. The old information was obtained by reviewing the records as well as discussion with the patient's nurses as well as the patient's daughter at the bedside. The patient's lactate is also 8.5, and had elevated liver function tests. At the time of my evaluation, the patient is in the intensive care unit on BiPAP and is on two pressors. PAST MEDICAL HISTORY: 1. Hypertension. 2. Dementia. 3. Hyperlipidemia. PAST SURGICAL HISTORY: Include gastrostomy tube placement. MEDICATIONS: At the [facility] include, 1. Norvasc 20 mg daily. 2. Aspirin 81 mg daily. 3. Lipitor 10 mg daily. 4. Metoprolol 50 mg t.i.d. 5. Crestor. FAMILY HISTORY: Noncontributory. REVIEW OF SYSTEMS: Cannot be obtained. PHYSICAL EXAMINATION: VITAL SIGNS: Blood pressure is 106/52, pulse is 94, respirations 20, and temperature is 99%. She is on BiPAP. HEAD AND NECK: Shows no JVD. LUNGS: Decreased breath sounds. CARDIOVASCULAR: Shows regular S1 and S2 with no gallop. ABDOMEN: Soft. Status post G-tube. EXTREMITIES: Have no pitting edema. LABORATORY DATA: White count 4.9, hemoglobin 14.1, hematocrit of 44.5, and platelet count of 92,000. Sodium is 140, potassium 4.0, BUN 21, creatinine 1.1, and glucose of 121. ASSESSMENT AND PLAN: 1. Shock, likely septic. She is already on broad-spectrum intravenous antibiotics. The patient is also on dopamine and Levophed. We will start to give the patient more intravenous fluids as well. 2. Episode of atrial fibrillation. The patient was in and out of atrial fibrillation, currently in sinus rhythm with a heart rate of less than 100. 3. Respiratory failure, on BiPAP. The patient is Do Not Resuscitate. 4. Do Not Resuscitate and Do Not Intubate. 5. Dysphagia, status post percutaneous endoscopic gastrostomy placement. 6. Advanced dementia. Thank you very much, Dr. Damon, for allowing me to participate in the care of this patient. Please do not hesitate to contact me for any questions regarding my evaluation. Maximiliano Phillips M.D. DR: THOR JOB#: [id number] CC:
[2017-04-10 05:08] LABS: WHITE BLOOD COUNT 38.1 K/UL (4.8-10.8)
[2017-04-10 05:24] LABS: ALANINE AMINOTRANSFERASE 40 U/L (3-33); ALBUMIN/GLOBULIN RATIO 1.2 (1.0-2.7); ANION GAP 13 (5-15); ASPARTATE AMINO TRANSFERASE 38 U/L (5-40); CALCIUM 7.6 mg/dL (8.6-10.2); CARBON DIOXIDE 20 mEQ/L (20-30); CHLORIDE 104 mEQ/L (98-107); CREATININE 0.8 mg/dL (0.5-0.9); HEMOLYSIS 4; POTASSIUM 3.5 mEQ/L (3.4-4.9); SODIUM 137 mEQ/L (135-145); TOTAL PROTEIN 5.5 g/dL (6.6-8.7)
[2017-04-10 06:20] LABS: ALANINE AMINOTRANSFERASE 37 U/L (3-33); ANION GAP 18 (5-15); ASPARTATE AMINO TRANSFERASE 39 U/L (5-40); CALCIUM 7.9 mg/dL (8.6-10.2); CARBON DIOXIDE 18 mEQ/L (20-30); CHLORIDE 103 mEQ/L (98-107); CREATININE 0.8 mg/dL (0.5-0.9); HEMOLYSIS 14; SODIUM 139 mEQ/L (135-145); TOTAL PROTEIN 5.6 g/dL (6.6-8.7)
[2017-04-10] MEDS: Piperacillin/Tazobactam 4.5 GM in D5W 110 ML IVPB SCH (06:20)
[2017-04-10 06:21] LABS: REFLEX LACTIC ACID YES OR NO YES
[2017-04-10 06:28] LABS: MEAN CORPUSCULAR HEMOGLOBIN 30.7 PG (27.0-31.0); MEAN CORPUSCULAR HGB CONC 31.8 G/DL (32.0-36.0); MEAN CORPUSCULAR VOLUME 96 FL (80-99); PLATELET COUNT 42 K/UL (150-450); RED CELL DISTRIBUTION WIDTH 12.6 % (11.6-14.8)
[2017-04-10 06:38] LABS: WHITE BLOOD COUNT 39.2 K/UL (4.8-10.8)
[2017-04-10 07:20] LABS: BAND NEUTROPHILS % (MANUAL) 11 % (0-8); LYMPHOCYTES % (MANUAL) 1 % (20-45); NEUTROPHILS % (MANUAL) 86 % (45-75); TOTAL CELLS COUNTED 100
[2017-04-10 07:21] LABS: BASOPHILS % (MANUAL) 0 % (0-2); EOSINOPHILS % (MANUAL) 0 % (0-3); HYPOCHROMASIA 1+; PLATELET ESTIMATE DECREASED; PLATELET MORPHOLOGY NORMAL
[2017-04-10 07:44] LABS: BAND NEUTROPHILS % (MANUAL) 15 % (0-8); BASOPHILS % (MANUAL) 0 % (0-2); EOSINOPHILS % (MANUAL) 0 % (0-3); HYPOCHROMASIA 1+; LYMPHOCYTES % (MANUAL) 2 % (20-45); NEUTROPHILS % (MANUAL) 80 % (45-75); PLATELET ESTIMATE DECREASED; PLATELET MORPHOLOGY NORMAL; TOTAL CELLS COUNTED 100
[2017-04-10] MEDS ORDERED: Amikacin Rx to dose MISC PRN (08:00)
[2017-04-10] MEDS: Pantoprazole Inj IVP SCH (09:19)
[2017-04-10] MEDS: DOPamine 400mg/250ml 250 ML IV SCH (09:30)
--- NOTE | 2017-04-10 09:32 | Cardiology Report ---
APPROVED REPORT EKG Measurement Heart [id number] PA [id number] Sinus rhythm with 1st degree AV block with premature atrial complexes Nonspecific ST and T wave abnormality Abnormal ECG
--- NOTE | 2017-04-10 09:57 | Pulmonology Progress Note ---
Assessment/Plan Assessment/Plan IMPRESSION: 1. Urinary tract infection. 2. Septic, septic shock. 3. Do Not Intubate. 4. Respiratory failure on BiPAP. 5. Dementia. DISCUSSION: Broad-spectrum antibiotics. Levophed, pressors. I will continue BiPAP. 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 Check ABG. labs in AM Subjective Interval Events: More awake; on BiPAP Constitutional: Reports: no symptoms HEENT: Repors: no symptoms Respiratory: Reports: no symptoms Cardiovascular: Reports: no symptoms Gastrointestinal/Abdominal: Reports: no symptoms Allergies: Coded Allergies: No Known Allergies (Unverified , 04/09/17) Objective Last 24 Hour Vital Signs Date Time Temp Pulse Resp B/P Pulse Ox O2 Delivery O2 Flow Rate FiO2 04/10/17 09:30 93 22 105/71 100 Bi-pap 40 04/10/17 09:30 120/79 04/10/17 09:05 90 23 100 Facial 40 04/10/17 09:00 92 23 114/73 100 Bi-pap 40 04/10/17 08:30 93 28 101/67 100 Bi-pap 40 04/10/17 08:00 40 04/10/17 08:00 90 04/10/17 08:00 99.2 93 28 103/61 100 Bi-pap 40 04/10/17 07:30 88 24 105/58 100 Bi-pap 40 04/10/17 07:00 91 28 105/63 100 Bi-pap 40 04/10/17 06:40 92 30 100 Facial 40 04/10/17 06:00 89 24 96/63 100 Bi-pap 40 04/10/17 05:30 87 26 103/61 100 Bi-pap 40 04/10/17 05:00 87 26 97/64 100 Bi-pap 40 04/10/17 04:56 87 30 100 Facial 40 04/10/17 04:30 89 26 80/63 100 Bi-pap 40 04/10/17 04:00 99.0 87 24 101/56 100 Bi-pap 40 04/10/17 04:00 87 04/10/17 04:00 40 04/10/17 03:30 89 23 97/65 100 Bi-pap 40 04/10/17 03:24 91 24 100 Facial 40 04/10/17 03:00 90 23 106/57 100 Bi-pap 40 04/10/17 02:30 89 24 97/65 100 Bi-pap 40 04/10/17 02:05 88/49 04/10/17 02:00 108 25 97/80 100 Bi-pap 40 04/10/17 01:30 89 25 100 Facial 40 04/10/17 01:30 87 25 91/51 100 Bi-pap 40 04/10/17 01:00 88 25 87/51 100 Bi-pap 40 04/10/17 00:30 89 26 80/51 100 Bi-pap 40 04/10/17 00:00 99.4 90 26 86/54 100 Bi-pap 40 04/10/17 00:00 40 04/10/17 00:00 92 04/09/17 23:30 85 24 81/44 100 Bi-pap 40 04/09/17 23:30 98 35 100 Facial 40 04/09/17 23:00 85 24 76/50 100 Bi-pap 40 04/09/17 22:30 84 23 73/49 100 Bi-pap 40 04/09/17 22:00 83 22 96/52 100 Bi-pap 40 04/09/17 21:30 85 22 89/55 100 Bi-pap 40 04/09/17 21:22 100 23 100 Facial 40 04/09/17 21:00 80 24 89/45 100 Bi-pap 40 04/09/17 20:42 95/43 04/09/17 20:30 83 22 89/46 100 Bi-pap 40 04/09/17 20:00 40 04/09/17 20:00 98.8 86 21 95/43 100 Bi-pap 40 04/09/17 20:00 90 04/09/17 19:30 94 20 99/54 100 Bi-pap 40 04/09/17 19:30 100 23 100 Facial 40 04/09/17 19:00 91 22 104/45 100 Bi-pap 40 04/09/17 18:30 86 22 88/48 100 Bi-pap 40 04/09/17 18:00 86 22 87/47 100 Bi-pap 40 04/09/17 17:30 98 22 100/50 100 Bi-pap 40 04/09/17 17:00 92 24 74/50 100 Bi-pap 40 04/09/17 16:58 95 33 100 Facial 40 04/09/17 16:30 98 22 88/54 100 Bi-pap 40 7/12/17 16:00 92 22 91/54 100 Bi-pap 40 04/09/17 16:00 40 04/09/17 16:00 98.9 90 27 91/55 100 Bi-pap 40 04/09/17 16:00 98 04/09/17 15:30 90 22 87/51 100 Bi-pap 40 04/09/17 15:29 96 27 100 Facial 40 04/09/17 15:00 106/52 04/09/17 15:00 94 22 106/52 100 Bi-pap 40 04/09/17 14:55 98/62 04/09/17 14:30 98 22 92/49 100 Bi-pap 40 04/09/17 14:00 97 22 95/56 100 Bi-pap 40 04/09/17 14:00 89/69 04/09/17 13:30 92 22 98/48 100 Bi-pap 40 04/09/17 13:18 92 23 100 Facial 40 04/09/17 13:00 89 20 97/50 100 Bi-pap 40 04/09/17 13:00 97/50 04/09/17 12:40 88/45 04/09/17 12:30 98.9 93 21 80/44 100 Bi-pap 40 04/09/17 12:15 91 21 88/45 100 Bi-pap 40 04/09/17 12:00 40 04/09/17 12:00 91 21 90/47 100 Bi-pap 40 04/09/17 12:00 90/47 04/09/17 11:45 95 21 92/51 100 Bi-pap 40 04/09/17 11:30 91 21 96/48 100 Bi-pap 40 04/09/17 11:15 92 21 96/46 100 Bi-pap 60 04/09/17 11:09 91 22 100 Full Face 40 04/09/17 11:00 92 20 96/41 100 Bi-pap 60 04/09/17 11:00 96/41 04/09/17 11:00 40 04/09/17 10:45 89 24 96/50 100 Bi-pap 60 04/09/17 10:30 95 24 86/51 100 Bi-pap 60 04/09/17 10:15 95 24 71/42 100 Bi-pap 60 04/09/17 10:00 72/44 04/09/17 10:00 97 22 72/44 100 Bi-pap 60 04/09/17 09:58 54/37 04/09/17 09:57 54/37 Intake and Output 04/09/17 04/10/17 19:00 07:00 Intake Total 2689.83 ml 2836.29 ml Output Total 1830 ml 2160 ml Balance 859.83 ml 676.29 ml Intake IV Total 2689.83 ml 2836.29 ml Output Urine Total 1830 ml 2160 ml General Appearance: no acute distress HEENT: normocephalic Respiratory/Chest: chest wall non-tender, decreased breath sounds Cardiovascular: normal peripheral pulses, normal rate Microbiology Date/Time Source Procedure Growth Status 04/09/17 02:40 Blood Blood Culture - Preliminary NO GROWTH AFTER 24 HOURS Resulted 04/09/17 02:25 Blood Blood Culture - Preliminary NO GROWTH AFTER 24 HOURS Resulted 04/09/17 03:05 Urine,Clean Catch Urine Culture - Preliminary Gram Negative Bacillus 1 Resulted Laboratory Tests 04/09/17 16:05: Lactic Acid Level 5.30H 04/10/17 04:45: White Blood Count 38.1#*H, Red Blood Count 3.60L, Hemoglobin 11.0L, Hematocrit 34.4L, Mean Corpuscular Volume 96, Mean Corpuscular Hemoglobin 30.6, Mean Corpuscular Hemoglobin Concent 32.0, Red Cell Distribution Width 12.3, Platelet Count 49L, Mean Platelet Volume 9.0, Neutrophils (%) (Auto) , Lymphocytes (%) ( Auto) , Monocytes (%) (Auto) , Eosinophils (%) (Auto) , Basophils (%) (Auto) , Differential Total Cells Counted 100, Neutrophils % (Manual) 86H, Lymphocytes % (Manual) 1L, Monocytes % (Manual) 2, Eosinophils % (Manual) 0, Basophils % ( Manual) 0, Band Neutrophils 11H, Platelet Estimate DecreasedL, Platelet Morphology Normal, Hypochromasia 1+, Sodium Level 137, Potassium Level 3.5, Chloride Level 104, Carbon Dioxide Level 20, Anion Gap 13, Blood Urea Nitrogen 11, Creatinine 0.8, Estimat Glomerular Filtration Rate , Glucose Level 193H, Calcium Level 7.6L, Total Bilirubin 1.0, Aspartate Amino Transf (AST/SGOT) 38, Alanine Aminotransferase (ALT/SGPT) 40H, Alkaline Phosphatase 66, Total Protein 5.5L, Albumin 3.1L, Globulin 2.4, Albumin/Globulin Ratio 1.2 04/10/17 05:40: Lactic Acid Level 4.40H, White Blood Count 39.2*H, Red Blood Count 3.60L, Hemoglobin 11.0L, Hematocrit 34.7L, Mean Corpuscular Volume 96, Mean Corpuscular Hemoglobin 30.7, Mean Corpuscular Hemoglobin Concent 31.8L, Red Cell Distribution Width 12.6, Platelet Count 42L, Mean Platelet Volume 9.0, Neutrophils (%) (Auto) , Lymphocytes (%) (Auto) , Monocytes (%) (Auto) , Eosinophils (%) (Auto) , Basophils (%) (Auto) , Differential Total Cells Counted 100, Neutrophils % (Manual) 80H, Lymphocytes % (Manual) 2L, Monocytes % (Manual) 3, Eosinophils % (Manual) 0, Basophils % (Manual) 0, Band Neutrophils 15H, Platelet Estimate DecreasedL, Platelet Morphology Normal, Hypochromasia 1+ , Sodium Level 139, Potassium Level 4.0, Chloride Level 103, Carbon Dioxide Level 18L, Anion Gap 18H, Blood Urea Nitrogen 11, Creatinine 0.8, Estimat Glomerular Filtration Rate , Glucose Level 164H, Calcium Level 7.9L, Total Bilirubin 1.0, Aspartate Amino Transf (AST/SGOT) 39, Alanine Aminotransferase ( ALT/SGPT) 37H, Alkaline Phosphatase 73, Total Protein 5.6L, Albumin 2.9L, Globulin 2.7, Albumin/Globulin Ratio 1.0 04/10/17 07:55: Lactic Acid Level [Pending] 04/10/17 08:00: Total Creatine Kinase [Pending], Creatine Kinase MB [Pending], Troponin I [ Pending], Pro-B-Type Natriuretic Peptide [Pending] Current Medications Medications (Trade) Dose Ordered Sig/Yissel Route PRN Reason Start Time Stop Time Status Last Admin Dose Admin Acetaminophen (Tylenol) 650 mg Q4H PRN ORAL Mild Pain (Pain Scale 1-3) 04/09/17 08:00 05/09/17 07:59 Amikacin Protocol 1 ea 1 ea DAILY PRN MISC Per rx protocol 04/10/17 08:00 05/10/17 07:59 Amikacin Sulfate/ Sodium Chloride (Amikin/Sodium Chloride) 113 ml @ 113 mls/hr Q24H IV 04/10/17 12:00 04/17/17 11:59 Chlorhexidine Gluconate 1 applic 1 applic QHS TOPIC 04/09/17 20:00 05/09/17 19:59 04/09/17 20:35 Dextrose STAT PRN IV Hypoglycemia 04/09/17 08:00 05/09/17 07:59 Dopamine HCl/ Dextrose 250 ml @ 0 mls/hr Q24H IV 04/09/17 09:30 05/09/17 09:29 04/09/17 09:58 Linezolid (Zyvox) 300 ml @ 300 mls/hr Q12HR IVPB 04/10/17 09:30 04/17/17 09:29 04/10/17 09:19 Meropenem 1 gm/ Sodium Chloride 110 ml @ 220 mls/hr Q12HR@1100,2300 IVPB 04/10/17 11:00 04/15/17 10:59 Norepinephrine Bitartrate 8 mg/ Dextrose 558 ml @ 0 mls/hr Q24H IV 04/09/17 20:40 05/09/17 14:29 04/10/17 02:05 Pantoprazole (Protonix) 40 mg DAILY IVP 04/10/17 09:00 05/10/17 08:59 04/10/17 09:19 Sodium Chloride (Sodium Chloride 1000ml bag) 1,000 ml @ 150 mls/hr Q6H40M IVLG 04/10/17 11:00 05/10/17 10:59 04/10/17 09:19 Edd Goins MD Apr 10, 2017 09:57
[2017-04-10 10:10] LABS: TROPONIN I 0.44 ng/mL (<=0.30)
--- NOTE | 2017-04-10 10:15 | Consultation ---
DATE OF CONSULTATION: 04/09/2017 CARDIOLOGY CONSULTATION REQUESTING PHYSICIAN: Ja Damon M.D. REASON FOR CONSULTATION: Shock. The patient was discussed with the emergency room physician and treatment plan initiated. HISTORY OF PRESENT ILLNESS: She is an 87-year-old [place] patient, who lives in a [facility] facility and was referred to the ER with significant fevers and shortness of breath. She was noted to be hypotensive. The patient had central venous access obtained. She was started on pressors and volume resuscitation as well as broad-spectrum antibiotics. PAST MEDICAL HISTORY: Cerebrovascular disease with dementia, hypertension, osteoarthritis, hyperlipidemia, urinary incontinence, constipation, and dysphagia with gastrostomy tube. Advance directives DNR. MEDICATIONS: Prior to admission, reviewed and reconciled. SOCIAL HISTORY: Negative for smoking, alcohol, or substance abuse. FAMILY HISTORY: Not known. REVIEW OF SYSTEMS: Not obtainable from the patient. Pertinent data from record is reviewed and outlined above. PHYSICAL EXAMINATION: VITAL SIGNS: Temperature 101.7, blood pressure 93/40, heart rate 109, and respiratory rate 36. HEENT: Temporal wasting. Pale conjunctivae. Anicteric sclerae. Oropharynx clear. Mucous membranes dry. NECK: Supple. Jugular venous pressure normal. LUNGS: Diminished breath sounds. Scattered rhonchi. CARDIAC: Irregularly irregular rhythm. Normal S1 and S2. ABDOMEN: Soft. EXTREMITIES: No edema. DIAGNOSTIC AND LABORATORY DATA: EKG reveals sinus rhythm, first-degree AV block, nonspecific ST-T wave changes with lateral depression and monitored rhythm reveals sinus with PVCs. Labs are reviewed. IMPRESSION: 1. Shock. 2. Sepsis. 3. Hypovolemia. 4. Possible pneumonia. 5. Lactic acidosis. 6. Nonsustained ventricular ectopy. 7. Paroxysmal atrial fibrillation. 8. Mild protein-calorie malnutrition. PLAN: DNI, DNR, pressor support, volume resuscitation, broad-spectrum antibiotics, DVT, stress ulcer prophylaxis, and respiratory hygiene. We will follow. Milton Echevarria M.D. DR: TROY JOB#: [id number] CC:
[2017-04-10 10:17] LABS: CKMB 3.6 ng/mL (< 3.8)
[2017-04-10 10:23] LABS: ABG PCO2 29.1 mmHg (35.0-45.0)
[2017-04-10 10:24] LABS: ABG ALLEN TEST POSITIVE; ABG BASE EXCESS -5.6
[2017-04-10] MEDS: Meropenem 1 GM in NS 110 ML IVPB SCH ×2 (10:33→23:25)
[2017-04-10] MEDS: Amikacin 750 MG in NS 110 ML IV SCH (13:05)
--- NOTE | 2017-04-10 14:58 | Infectious Diseases Prog Note ---
Assessment/Plan Problems: (1) Septic shock Assessment & Plan: with refractory hypotension, due to gram negative rods, not improving on zosyn and levaquin and vancomycin , so will upgrade her antibiotics regimen to meropenem, zyvox and amikacin for double coverage , continue fluids and titrate pressors (2) UTI (urinary tract infection) Assessment & Plan: with gram negative rods . await culture, switch zosyn and levaquin to meropenem and amikacin (3) Acute respiratory failure Assessment & Plan: due to the above, on BIPAP, pulmonary is following, monitor ABG, and CXR (4) Shock liver Assessment & Plan: due to the above, monitor LFT, will screen for hepatitis (5) Fever Assessment & Plan: due to sepsis, continue tylenol and cooling measures (6) SHAYNE (acute kidney injury) Assessment & Plan: due to septic shock and hypotension, continue hydration and pressors, monitor UOP, renal is following Subjective ROS Limited/Unobtainable: Yes Allergies: Coded Allergies: No Known Allergies (Unverified , 04/09/17) Subjective she was on BIPAP, open eyes spontaneously, not in distress, afebrile.still on pressors Objective Vital Signs Last 24 Hour Vital Signs Date Time Temp Pulse Resp B/P Pulse Ox O2 Delivery O2 Flow Rate FiO2 04/10/17 14:00 108 27 104/55 100 Bi-pap 35 04/10/17 14:00 104/55 04/10/17 13:45 112 28 114/69 100 Bi-pap 35 04/10/17 13:45 114/69 04/10/17 13:30 114 28 110/70 100 Bi-pap 35 04/10/17 13:15 115 29 114/69 100 Bi-pap 35 04/10/17 13:12 104/59 04/10/17 13:05 104/59 04/10/17 13:00 118 28 104/59 100 Bi-pap 35 04/10/17 12:45 114 27 98/61 100 Bi-pap 35 04/10/17 12:44 117 24 100 Facial 35 04/10/17 12:30 114 28 99/73 100 Bi-pap 35 04/10/17 12:15 116 29 123/74 100 Bi-pap 35 04/10/17 12:00 99.2 119 27 125/73 100 Bi-pap 35 7 12:00 100 7 12:00 35 7 12:00 125/73 7 11:45 116 28 123/74 100 Bi-pap 35 7/ 11:30 100 29 112/64 100 Bi-pap 35 7// 11:15 99 29 116/79 100 Bi-pap 35 04/10/ 11:00 110/66 7 11:00 97 29 110/66 100 Bi-pap 40 04/10/17 10:52 97 28 100 Facial 35 04/10/17 10:45 97 27 119/63 100 Bi-pap 40 04/10/17 10:30 114/64 04/10/17 10:30 97 27 114/64 100 Bi-pap 40 04/10/17 10:15 92 23 105/64 100 Bi-pap 40 04/10/17 10:00 106/68 04/10/17 10:00 97 26 106/68 100 Bi-pap 40 04/10/17 09:30 93 22 105/71 100 Bi-pap 40 04/10/17 09:30 120/79 04/10/17 09:05 90 23 100 Facial 40 04/10/17 09:00 92 23 114/73 100 Bi-pap 40 04/10/17 09:00 114/73 04/10/17 08:30 93 28 101/67 100 Bi-pap 40 04/10/17 08:00 40 04/10/17 08:00 105/63 04/10/17 08:00 90 04/10/17 08:00 99.2 93 28 103/61 100 Bi-pap 40 04/10/17 07:30 88 24 105/58 100 Bi-pap 40 04/10/17 07:00 91 28 105/63 100 Bi-pap 40 04/10/17 06:40 92 30 100 Facial 40 04/10/17 06:00 89 24 96/63 100 Bi-pap 40 04/10/ 05:30 87 26 103/61 100 Bi-pap 40 04/10/17 05:00 87 26 97/64 100 Bi-pap 40 7/17 04:56 87 30 100 Facial 40 04/10/ 04:30 89 26 80/63 100 Bi-pap 40 04/10/17 04:00 99.0 87 24 101/56 100 Bi-pap 40 04/10/17 04:00 87 04/10/17 04:00 40 04/10/17 03:30 89 23 97/65 100 Bi-pap 40 04/10/17 03:24 91 24 100 Facial 40 04/10/17 03:00 90 23 106/57 100 Bi-pap 40 04/10/17 02:30 89 24 97/65 100 Bi-pap 40 04/10/17 02:05 88/49 04/10/17 02:00 108 25 97/80 100 Bi-pap 40 04/10/17 01:30 89 25 100 Facial 40 04/10/17 01:30 87 25 91/51 100 Bi-pap 40 04/10/17 01:00 88 25 87/51 100 Bi-pap 40 04/10/17 00:30 89 26 80/51 100 Bi-pap 40 04/10/17 00:00 99.4 90 26 86/54 100 Bi-pap 40 04/10/17 00:00 40 04/10/17 00:00 92 04/09/17 23:30 85 24 81/44 100 Bi-pap 40 04/09/17 23:30 98 35 100 Facial 40 04/09/17 23:00 85 24 76/50 100 Bi-pap 40 04/09/17 22:30 84 23 73/49 100 Bi-pap 40 04/09/17 22:00 83 22 96/52 100 Bi-pap 40 04/09/17 21:30 85 22 89/55 100 Bi-pap 40 04/09/17 21:22 100 23 100 Facial 40 04/09/17 21:00 80 24 89/45 100 Bi-pap 40 04/09/17 20:42 95/43 04/09/17 20:30 83 22 89/46 100 Bi-pap 40 04/09/17 20:00 40 04/09/17 20:00 98.8 86 21 95/43 100 Bi-pap 40 04/09/17 20:00 90 04/09/17 19:30 94 20 99/54 100 Bi-pap 40 04/09/17 19:30 100 23 100 Facial 40 04/09/17 19:00 91 22 104/45 100 Bi-pap 40 04/09/17 18:30 86 22 88/48 100 Bi-pap 40 04/09/17 18:00 86 22 87/47 100 Bi-pap 40 04/09/17 17:30 98 22 100/50 100 Bi-pap 40 04/09/17 17:00 92 24 74/50 100 Bi-pap 40 04/09/17 16:58 95 33 100 Facial 40 04/09/17 16:30 98 22 88/54 100 Bi-pap 40 04/09/17 16:00 92 22 91/54 100 Bi-pap 40 04/09/17 16:00 40 04/09/17 16:00 98.9 90 27 91/55 100 Bi-pap 40 04/09/17 16:00 98 04/09/17 15:30 90 22 87/51 100 Bi-pap 40 04/09/17 15:29 96 27 100 Facial 40 04/09/17 15:00 106/52 04/09/17 15:00 94 22 106/52 100 Bi-pap 40 04/09/17 14:55 98/62 Height (Feet): 5 Height (Inches): 4.00 Weight (Pounds): 125 General Appearance: WD/WN, no acute distress HEENT: normocephalic, atraumatic, anicteric, mucous membranes moist, PERRL, supple, no JVD Respiratory/Chest: chest wall non-tender, lungs clear, normal breath sounds, no respiratory distress, no accessory muscle use Cardiovascular: normal peripheral pulses, normal rate, regular rhythm, no gallop/murmur, no JVD Abdomen: normal bowel sounds, soft, non tender, no organomegaly, non distended , no mass, no scars, hypoactive bowel sounds Extremities: no cyanosis, no clubbing Skin: no rash, no lesions, no ulcers Neurologic/Psychiatric: alert Lymphatic: no neck adenopathy, no groin adenopathy Musculoskeletal: normal muscle bulk, no effusion Microbiology Date/Time Source Procedure Growth Status 04/09/17 11:30 Blood Blood Culture - Preliminary Resulted 04/09/17 11:20 Blood Blood Culture - Preliminary Resulted 04/09/17 02:40 Blood Blood Culture - Preliminary NO GROWTH AFTER 24 HOURS Resulted 04/09/17 02:25 Blood Blood Culture - Preliminary Resulted 04/09/17 04:30 Nasal Nares MRSA Culture - Final Staphylococcus Aureus - Mrsa Complete 04/09/17 03:05 Urine,Clean Catch Urine Culture - Preliminary Gram Negative Bacillus 1 Resulted Laboratory Tests Test 04/09/17 16:05 04/10/17 04:45 04/10/17 05:40 04/10/17 07:55 Lactic Acid Level 5.30 mmol/L (0.66-2.22) H 4.40 mmol/L (0.66-2.22) H 3.30 mmol/L (0.66-2.22) H White Blood Count 38.1 K/UL (4.8-10.8) #*H 39.2 K/UL (4.8-10.8) *H Red Blood Count 3.60 M/UL (4.20-5.40) L 3.60 M/UL (4.20-5.40) L Hemoglobin 11.0 G/DL (12.0-16.0) L 11.0 G/DL (12.0-16.0) L Hematocrit 34.4 % (37.0-47.0) L 34.7 % (37.0-47.0) L Mean Corpuscular Volume 96 FL (80-99) 96 FL (80-99) Mean Corpuscular Hemoglobin 30.6 PG (27.0-31.0) 30.7 PG (27.0-31.0) Mean Corpuscular Hemoglobin Concent 32.0 G/DL (32.0-36.0) 31.8 G/DL (32.0-36.0) L Red Cell Distribution Width 12.3 % (11.6-14.8) 12.6 % (11.6-14.8) Platelet Count 49 K/UL (150-450) L 42 K/UL (150-450) L Mean Platelet Volume 9.0 FL (6.5-10.1) 9.0 FL (6.5-10.1) Neutrophils (%) (Auto) % (45.0-75.0) % (45.0-75.0) Lymphocytes (%) (Auto) % (20.0-45.0) % (20.0-45.0) Monocytes (%) (Auto) % (1.0-10.0) % (1.0-10.0) Eosinophils (%) (Auto) % (0.0-3.0) % (0.0-3.0) Basophils (%) (Auto) % (0.0-2.0) % (0.0-2.0) Differential Total Cells Counted 100 100 Neutrophils % (Manual) 86 % (45-75) H 80 % (45-75) H Lymphocytes % (Manual) 1 % (20-45) L 2 % (20-45) L Monocytes % (Manual) 2 % (1-10) 3 % (1-10) Eosinophils % (Manual) 0 % (0-3) 0 % (0-3) Basophils % (Manual) 0 % (0-2) 0 % (0-2) Band Neutrophils 11 % (0-8) H 15 % (0-8) H Platelet Estimate Decreased L Decreased L Platelet Morphology Normal Normal Hypochromasia 1+ 1+ Sodium Level 137 mEQ/L (135-145) 139 mEQ/L (135-145) Potassium Level 3.5 mEQ/L (3.4-4.9) 4.0 mEQ/L (3.4-4.9) Chloride Level 104 mEQ/L (98-107) 103 mEQ/L (98-107) Carbon Dioxide Level 20 mEQ/L (20-30) 18 mEQ/L (20-30) L Anion Gap 13 (5-15) 18 (5-15) H Blood Urea Nitrogen 11 mg/dL (7-23) 11 mg/dL (7-23) Creatinine 0.8 mg/dL (0.5-0.9) 0.8 mg/dL (0.5-0.9) Estimat Glomerular Filtration Rate mL/min (>60) mL/min (>60) Glucose Level 193 mg/dL (74-106) H 164 mg/dL (74-106) H Calcium Level 7.6 mg/dL (8.6-10.2) L 7.9 mg/dL (8.6-10.2) L Total Bilirubin 1.0 mg/dL (0.0-1.2) 1.0 mg/dL (0.0-1.2) Aspartate Amino Transf (AST/SGOT) 38 U/L (5-40) 39 U/L (5-40) Alanine Aminotransferase (ALT/SGPT) 40 U/L (3-33) H 37 U/L (3-33) H Alkaline Phosphatase 66 U/L (35-104) 73 U/L (35-104) Total Protein 5.5 g/dL (6.6-8.7) L 5.6 g/dL (6.6-8.7) L Albumin 3.1 g/dL (3.5-5.2) L 2.9 g/dL (3.5-5.2) L Globulin 2.4 g/dL 2.7 g/dL Albumin/Globulin Ratio 1.2 (1.0-2.7) 1.0 (1.0-2.7) Test 04/10/17 08:00 04/10/17 09:40 Total Creatine Kinase 108 U/L (26-140) Creatine Kinase MB 3.6 ng/mL (< 3.8) Creatine Kinase MB Relative Index 3.3 Troponin I 0.44 ng/mL (<=0.30) *H Pro-B-Type Natriuretic Peptide 32533 pg/mL (0-450) H Arterial Blood pH 7.410 (7.350-7.450) Arterial Blood Partial Pressure CO2 29.1 mmHg (35.0-45.0) L Arterial Blood Partial Pressure O2 122.6 mmHg (75.0-100.0) H Arterial Blood HCO3 17.9 mmol/L (22.0-26.0) L Arterial Blood Oxygen Saturation 98.1 % (92.0-98.0) H Arterial Blood Base Excess -5.6 Cam Test Positive Current Medications Medications (Trade) Dose Ordered Sig/Yissel Route PRN Reason Start Time Stop Time Status Last Admin Dose Admin Acetaminophen (Tylenol) 650 mg Q4H PRN ORAL Mild Pain (Pain Scale 1-3) 04/09/17 08:00 05/09/17 07:59 Amikacin Protocol 1 ea 1 ea DAILY PRN MISC Per rx protocol 04/10/17 08:00 05/10/17 07:59 Amikacin Sulfate/ Sodium Chloride (Amikin/Sodium Chloride) 113 ml @ 113 mls/hr Q24H IV 04/10/17 12:00 04/17/17 11:59 04/10/17 13:05 Chlorhexidine Gluconate 1 applic 1 applic QHS TOPIC 04/09/17 20:00 05/09/17 19:59 04/09/17 20:35 Dextrose STAT PRN IV Hypoglycemia 04/09/17 08:00 05/09/17 07:59 Dopamine HCl/ Dextrose 250 ml @ 0 mls/hr Q24H IV 04/09/17 09:30 05/09/17 09:29 04/09/17 09:58 Linezolid (Zyvox) 300 ml @ 300 mls/hr Q12HR IVPB 04/10/17 09:30 04/17/17 09:29 04/10/17 09:19 Meropenem 1 gm/ Sodium Chloride 110 ml @ 220 mls/hr Q12HR@1100,2300 IVPB 04/10/17 11:00 04/15/17 10:59 04/10/17 10:33 Norepinephrine Bitartrate 8 mg/ Dextrose 558 ml @ 0 mls/hr Q24H IV 04/09/17 20:40 05/09/17 14:29 04/10/17 13:12 Pantoprazole (Protonix) 40 mg DAILY IVP 04/10/17 09:00 05/10/17 08:59 04/10/17 09:19 Sodium Chloride (Sodium Chloride 1000ml bag) 1,000 ml @ 150 mls/hr Q6H40M IVLG 04/10/17 11:00 05/10/17 10:59 04/10/17 09:19 Alberto Philip M.D. Apr 10, 2017 14:58
[2017-04-10 15:29] LABS: REFLEX LACTIC ACID YES OR NO YES
--- NOTE | 2017-04-10 19:22 | Cardiac Electrophysiology PN ---
Assessment/Plan Assessment/Plan 1. Septic Shock already on broad-spectrum intravenous antibiotics. The patient is on Levophed and NS. 2. Episode of atrial fibrillation. The patient was in and out of atrial fibrillation, currently in sinus rhythm 3. Respiratory failure, on BiPAP. The patient is Do Not Resuscitate. 4. Do Not Resuscitate and Do Not Intubate. 5. Dysphagia, status post percutaneous endoscopic gastrostomy placement. 6. Advanced dementia. Alex RN Subjective Subjective On Levophed 10 mcg. Off BIPAP.Daughter at bedside. Objective Last 24 Hour Vital Signs Date Time Temp Pulse Resp B/P Pulse Ox O2 Delivery O2 Flow Rate FiO2 04/10/17 19:09 83 26 99 3.0 32 04/10/17 18:45 90 28 110/69 100 Bi-pap 35 04/10/17 18:30 87 22 99/69 100 Bi-pap 35 04/10/17 18:15 87 22 92/61 100 Bi-pap 35 04/10/17 18:00 88 25 105/67 100 Bi-pap 35 04/10/17 18:00 102/67 04/10/17 17:45 89 26 101/58 100 Bi-pap 35 17 17:30 89 25 98/64 100 Bi-pap 35 04/10/17 17:15 92 26 103/66 100 Bi-pap 35 04/10/17 17:00 91 26 98/66 100 Bi-pap 35 17 17:00 98/66 04/10/17 16:45 90 25 105/78 100 Bi-pap 35 04/10/17 16:30 93 26 102/65 100 Bi-pap 35 04/10/17 16:30 91 30 100 Facial 35 04/10/17 16:15 90 24 101/63 100 Bi-pap 35 04/10/17 16:00 92 04/10/17 16:00 99.2 91 24 92/59 100 Bi-pap 35 04/10/17 16:00 92/59 04/10/17 16:00 35 04/10/17 15:45 92 26 94/57 100 Bi-pap 35 04/10/17 15:30 90 26 103/61 100 Bi-pap 35 04/10/17 15:15 91 25 98/57 100 Bi-pap 35 04/10/17 15:00 90 28 109/63 100 Bi-pap 35 7/13/17 15:00 109/63 7/13/17 14:45 91 27 99/63 100 Bi-pap 35 7/13/17 14:30 91 28 101/64 100 Bi-pap 35 7/13/17 14:15 109 27 100/62 100 Bi-pap 35 7/13/17 14:00 108 27 104/55 100 Bi-pap 35 7/13/17 14:00 104/55 7/17 13:45 112 28 114/69 100 Bi-pap 35 7/13/17 13:45 114/69 7//17 13:30 114 28 110/70 100 Bi-pap 35 7/13/17 13:15 115 29 114/69 100 Bi-pap 35 7/13/17 13:12 104/59 7/17 13:05 104/59 7/17 13:00 118 28 104/59 100 Bi-pap 35 7/13/17 12:45 114 27 98/61 100 Bi-pap 35 7//17 12:44 117 24 100 Facial 35 7//17 12:30 114 28 99/73 100 Bi-pap 35 7/13/17 12:15 116 29 123/74 100 Bi-pap 35 7/13/17 12:00 99.2 119 27 125/73 100 Bi-pap 35 7/13/17 12:00 100 7/13/17 12:00 35 7/13/17 12:00 125/73 7//17 11:45 116 28 123/74 100 Bi-pap 35 7/13/17 11:30 100 29 112/64 100 Bi-pap 35 7/13/17 11:15 99 29 116/79 100 Bi-pap 35 7/13/17 11:00 110/66 7/13/17 11:00 97 29 110/66 100 Bi-pap 40 7/13/17 10:52 97 28 100 Facial 35 7/13/17 10:45 97 27 119/63 100 Bi-pap 40 7/13/17 10:30 114/64 7/13/17 10:30 97 27 114/64 100 Bi-pap 40 7/13/17 10:15 92 23 105/64 100 Bi-pap 40 7/13/17 10:00 106/68 7/13/17 10:00 97 26 106/68 100 Bi-pap 40 04/10/17 09:30 93 22 105/71 100 Bi-pap 40 04/10/17 09:30 120/79 04/10/17 09:05 90 23 100 Facial 40 04/10/17 09:00 92 23 114/73 100 Bi-pap 40 04/10/17 09:00 114/73 04/10/17 08:30 93 28 101/67 100 Bi-pap 40 04/10/17 08:00 40 04/10/17 08:00 105/63 04/10/17 08:00 90 04/10/17 08:00 99.2 93 28 103/61 100 Bi-pap 40 04/10/17 07:30 88 24 105/58 100 Bi-pap 40 04/10/17 07:00 91 28 105/63 100 Bi-pap 40 04/10/17 06:40 92 30 100 Facial 40 04/10/17 06:00 89 24 96/63 100 Bi-pap 40 04/10/17 05:30 87 26 103/61 100 Bi-pap 40 04/10/17 05:00 87 26 97/64 100 Bi-pap 40 04/10/17 04:56 87 30 100 Facial 40 04/10/17 04:30 89 26 80/63 100 Bi-pap 40 04/10/17 04:00 99.0 87 24 101/56 100 Bi-pap 40 04/10/17 04:00 87 04/10/17 04:00 40 04/10/17 03:30 89 23 97/65 100 Bi-pap 40 04/10/17 03:24 91 24 100 Facial 40 04/10/17 03:00 90 23 106/57 100 Bi-pap 40 04/10/17 02:30 89 24 97/65 100 Bi-pap 40 04/10/17 02:05 88/49 04/10/17 02:00 108 25 97/80 100 Bi-pap 40 04/10/17 01:30 89 25 100 Facial 40 04/10/17 01:30 87 25 91/51 100 Bi-pap 40 04/10/17 01:00 88 25 87/51 100 Bi-pap 40 04/10/17 00:30 89 26 80/51 100 Bi-pap 40 04/10/17 00:00 99.4 90 26 86/54 100 Bi-pap 40 04/10/17 00:00 40 04/10/17 00:00 92 04/09/17 23:30 85 24 81/44 100 Bi-pap 40 04/09/17 23:30 98 35 100 Facial 40 04/09/17 23:00 85 24 76/50 100 Bi-pap 40 04/09/17 22:30 84 23 73/49 100 Bi-pap 40 04/09/17 22:00 83 22 96/52 100 Bi-pap 40 04/09/17 21:30 85 22 89/55 100 Bi-pap 40 04/09/17 21:22 100 23 100 Facial 40 04/09/17 21:00 80 24 89/45 100 Bi-pap 40 04/09/17 20:42 95/43 04/09/17 20:30 83 22 89/46 100 Bi-pap 40 04/09/17 20:00 40 04/09/17 20:00 98.8 86 21 95/43 100 Bi-pap 40 04/09/17 20:00 90 04/09/17 19:30 94 20 99/54 100 Bi-pap 40 04/09/17 19:30 100 23 100 Facial 40 Intake and Output 04/09/17 04/10/17 19:00 07:00 Intake Total 2689.83 ml 2836.29 ml Output Total 1830 ml 2160 ml Balance 859.83 ml 676.29 ml Intake IV Total 2689.83 ml 2836.29 ml Output Urine Total 1830 ml 2160 ml Laboratory Tests Test 04/10/17 04:45 04/10/17 05:40 04/10/17 07:55 04/10/17 08:00 White Blood Count 38.1 K/UL (4.8-10.8) #*H 39.2 K/UL (4.8-10.8) *H Red Blood Count 3.60 M/UL (4.20-5.40) L 3.60 M/UL (4.20-5.40) L Hemoglobin 11.0 G/DL (12.0-16.0) L 11.0 G/DL (12.0-16.0) L Hematocrit 34.4 % (37.0-47.0) L 34.7 % (37.0-47.0) L Mean Corpuscular Volume 96 FL (80-99) 96 FL (80-99) Mean Corpuscular Hemoglobin 30.6 PG (27.0-31.0) 30.7 PG (27.0-31.0) Mean Corpuscular Hemoglobin Concent 32.0 G/DL (32.0-36.0) 31.8 G/DL (32.0-36.0) L Red Cell Distribution Width 12.3 % (11.6-14.8) 12.6 % (11.6-14.8) Platelet Count 49 K/UL (150-450) L 42 K/UL (150-450) L Mean Platelet Volume 9.0 FL (6.5-10.1) 9.0 FL (6.5-10.1) Neutrophils (%) (Auto) % (45.0-75.0) % (45.0-75.0) Lymphocytes (%) (Auto) % (20.0-45.0) % (20.0-45.0) Monocytes (%) (Auto) % (1.0-10.0) % (1.0-10.0) Eosinophils (%) (Auto) % (0.0-3.0) % (0.0-3.0) Basophils (%) (Auto) % (0.0-2.0) % (0.0-2.0) Differential Total Cells Counted 100 100 Neutrophils % (Manual) 86 % (45-75) H 80 % (45-75) H Lymphocytes % (Manual) 1 % (20-45) L 2 % (20-45) L Monocytes % (Manual) 2 % (1-10) 3 % (1-10) Eosinophils % (Manual) 0 % (0-3) 0 % (0-3) Basophils % (Manual) 0 % (0-2) 0 % (0-2) Band Neutrophils 11 % (0-8) H 15 % (0-8) H Platelet Estimate Decreased L Decreased L Platelet Morphology Normal Normal Hypochromasia 1+ 1+ Sodium Level 137 mEQ/L (135-145) 139 mEQ/L (135-145) Potassium Level 3.5 mEQ/L (3.4-4.9) 4.0 mEQ/L (3.4-4.9) Chloride Level 104 mEQ/L (98-107) 103 mEQ/L (98-107) Carbon Dioxide Level 20 mEQ/L (20-30) 18 mEQ/L (20-30) L Anion Gap 13 (5-15) 18 (5-15) H Blood Urea Nitrogen 11 mg/dL (7-23) 11 mg/dL (7-23) Creatinine 0.8 mg/dL (0.5-0.9) 0.8 mg/dL (0.5-0.9) Estimat Glomerular Filtration Rate mL/min (>60) mL/min (>60) Glucose Level 193 mg/dL (74-106) H 164 mg/dL (74-106) H Calcium Level 7.6 mg/dL (8.6-10.2) L 7.9 mg/dL (8.6-10.2) L Total Bilirubin 1.0 mg/dL (0.0-1.2) 1.0 mg/dL (0.0-1.2) Aspartate Amino Transf (AST/SGOT) 38 U/L (5-40) 39 U/L (5-40) Alanine Aminotransferase (ALT/SGPT) 40 U/L (3-33) H 37 U/L (3-33) H Alkaline Phosphatase 66 U/L (35-104) 73 U/L (35-104) Total Protein 5.5 g/dL (6.6-8.7) L 5.6 g/dL (6.6-8.7) L Albumin 3.1 g/dL (3.5-5.2) L 2.9 g/dL (3.5-5.2) L Globulin 2.4 g/dL 2.7 g/dL Albumin/Globulin Ratio 1.2 (1.0-2.7) 1.0 (1.0-2.7) Lactic Acid Level 4.40 mmol/L (0.66-2.22) H 3.30 mmol/L (0.66-2.22) H Total Creatine Kinase 108 U/L (26-140) Creatine Kinase MB 3.6 ng/mL (< 3.8) Creatine Kinase MB Relative Index 3.3 Troponin I 0.44 ng/mL (<=0.30) *H Pro-B-Type Natriuretic Peptide 19614 pg/mL (0-450) H Test 04/10/17 09:40 04/10/17 14:30 Arterial Blood pH 7.410 (7.350-7.450) Arterial Blood Partial Pressure CO2 29.1 mmHg (35.0-45.0) L Arterial Blood Partial Pressure O2 122.6 mmHg (75.0-100.0) H Arterial Blood HCO3 17.9 mmol/L (22.0-26.0) L Arterial Blood Oxygen Saturation 98.1 % (92.0-98.0) H Arterial Blood Base Excess -5.6 Cam Test Positive Lactic Acid Level 2.50 mmol/L (0.66-2.22) H Microbiology Date/Time Source Procedure Growth Status 04/09/17 11:30 Blood Blood Culture - Preliminary Resulted 04/09/17 11:20 Blood Blood Culture - Preliminary Resulted 04/09/17 02:40 Blood Blood Culture - Preliminary NO GROWTH AFTER 24 HOURS Resulted 04/09/17 02:25 Blood Blood Culture - Preliminary Resulted 04/09/17 04:30 Nasal Nares MRSA Culture - Final Staphylococcus Aureus - Mrsa Complete 04/09/17 03:05 Urine,Clean Catch Urine Culture - Preliminary Gram Negative Bacillus 1 Resulted Objective HEAD AND NECK: Shows no JVD. LUNGS: Decreased breath sounds. CARDIOVASCULAR: Shows regular S1 and S2 with no gallop. ABDOMEN: Soft. Status post G-tube. EXTREMITIES: Have no pitting edema. JEET MONTE Apr 10, 2017 19:22
[2017-04-10] MEDS: Dyna-Hex 2% Top Sol 8oz TOPIC SCH (20:43)
--- NOTE | 2017-04-10 22:44 | Nephrology Progress Note ---
Assessment/Plan Problem List: (1) Septic shock (2) Fever (3) UTI (urinary tract infection) (4) Dementia (5) HTN (hypertension) (6) Sepsis (7) Hypotension Plan ID and Cardio following. Abx per ID. f/u cx's. DNR/DNI. Pressors prn. DVT ppx. Subjective Subjective on BiPAP. on pressor. Objective Objective Last 24 Hour Vital Signs Date Time Temp Pulse Resp B/P Pulse Ox O2 Delivery O2 Flow Rate FiO2 04/10/17 19:38 103/66 04/10/17 19:09 83 26 99 3.0 32 04/10/17 18:45 90 28 110/69 100 Bi-pap 35 04/10/17 18:30 87 22 99/69 100 Bi-pap 35 04/10/17 18:15 87 22 92/61 100 Bi-pap 35 04/10/17 18:00 88 25 105/67 100 Bi-pap 35 04/10/17 18:00 102/67 04/10/17 17:45 89 26 101/58 100 Bi-pap 35 04/10/17 17:30 89 25 98/64 100 Bi-pap 35 04/10/17 17:15 92 26 103/66 100 Bi-pap 35 04/10/17 17:00 91 26 98/66 100 Bi-pap 35 04/10/17 17:00 98/66 04/10/17 16:45 90 25 105/78 100 Bi-pap 35 04/10/17 16:30 93 26 102/65 100 Bi-pap 35 04/10/17 16:30 91 30 100 Facial 35 04/10/17 16:15 90 24 101/63 100 Bi-pap 35 04/10/17 16:00 92 04/10/17 16:00 99.2 91 24 92/59 100 Bi-pap 35 04/10/17 16:00 92/59 04/10/17 16:00 35 04/10/17 15:45 92 26 94/57 100 Bi-pap 35 04/10/17 15:30 90 26 103/61 100 Bi-pap 35 04/10/17 15:15 91 25 98/57 100 Bi-pap 35 04/10/17 15:00 90 28 109/63 100 Bi-pap 35 04/10/17 15:00 109/63 7/13/17 14:45 91 27 99/63 100 Bi-pap 35 7/13/17 14:30 91 28 101/64 100 Bi-pap 35 7/13/17 14:15 109 27 100/62 100 Bi-pap 35 7/13/17 14:00 108 27 104/55 100 Bi-pap 35 7/13/17 14:00 104/55 7/13/17 13:45 112 28 114/69 100 Bi-pap 35 7/13/17 13:45 114/69 7/13/17 13:30 114 28 110/70 100 Bi-pap 35 7/13/17 13:15 115 29 114/69 100 Bi-pap 35 7/13/17 13:12 104/59 7/17 13:05 104/59 7/17 13:00 118 28 104/59 100 Bi-pap 35 7/13/17 12:45 114 27 98/61 100 Bi-pap 35 7/13/17 12:44 117 24 100 Facial 35 7//17 12:30 114 28 99/73 100 Bi-pap 35 7//17 12:15 116 29 123/74 100 Bi-pap 35 7/13/17 12:00 99.2 119 27 125/73 100 Bi-pap 35 7/13/17 12:00 100 7/13/17 12:00 35 7/13/17 12:00 125/73 7/17 11:45 116 28 123/74 100 Bi-pap 35 7/13/17 11:30 100 29 112/64 100 Bi-pap 35 7/13/17 11:15 99 29 116/79 100 Bi-pap 35 7/13/17 11:00 110/66 7/13/17 11:00 97 29 110/66 100 Bi-pap 40 7/13/17 10:52 97 28 100 Facial 35 7/13/17 10:45 97 27 119/63 100 Bi-pap 40 7/13/17 10:30 114/64 7//17 10:30 97 27 114/64 100 Bi-pap 40 7/13/17 10:15 92 23 105/64 100 Bi-pap 40 7/13/17 10:00 106/68 7/13/17 10:00 97 26 106/68 100 Bi-pap 40 7/13/17 09:30 93 22 105/71 100 Bi-pap 40 04/10/17 09:30 120/79 04/10/17 09:05 90 23 100 Facial 40 04/10/17 09:00 92 23 114/73 100 Bi-pap 40 04/10/17 09:00 114/73 04/10/17 08:30 93 28 101/67 100 Bi-pap 40 04/10/17 08:00 40 04/10/17 08:00 105/63 04/10/17 08:00 90 04/10/17 08:00 99.2 93 28 103/61 100 Bi-pap 40 04/10/17 07:30 88 24 105/58 100 Bi-pap 40 04/10/17 07:00 91 28 105/63 100 Bi-pap 40 04/10/17 06:40 92 30 100 Facial 40 04/10/17 06:00 89 24 96/63 100 Bi-pap 40 04/10/17 05:30 87 26 103/61 100 Bi-pap 40 04/10/17 05:00 87 26 97/64 100 Bi-pap 40 04/10/17 04:56 87 30 100 Facial 40 04/10/17 04:30 89 26 80/63 100 Bi-pap 40 04/10/17 04:00 99.0 87 24 101/56 100 Bi-pap 40 04/10/17 04:00 87 04/10/17 04:00 40 04/10/17 03:30 89 23 97/65 100 Bi-pap 40 04/10/17 03:24 91 24 100 Facial 40 04/10/17 03:00 90 23 106/57 100 Bi-pap 40 04/10/17 02:30 89 24 97/65 100 Bi-pap 40 04/10/17 02:05 88/49 04/10/17 02:00 108 25 97/80 100 Bi-pap 40 04/10/17 01:30 89 25 100 Facial 40 04/10/17 01:30 87 25 91/51 100 Bi-pap 40 04/10/17 01:00 88 25 87/51 100 Bi-pap 40 04/10/17 00:30 89 26 80/51 100 Bi-pap 40 04/10/17 00:00 99.4 90 26 86/54 100 Bi-pap 40 04/10/17 00:00 40 04/10/17 00:00 92 04/09/17 23:30 85 24 81/44 100 Bi-pap 40 04/09/17 23:30 98 35 100 Facial 40 04/09/17 23:00 85 24 76/50 100 Bi-pap 40 Intake and Output 04/09/17 04/10/17 19:00 07:00 Intake Total 2689.83 ml 2836.29 ml Output Total 1830 ml 2160 ml Balance 859.83 ml 676.29 ml Intake IV Total 2689.83 ml 2836.29 ml Output Urine Total 1830 ml 2160 ml Laboratory Tests 04/10/17 04:45: White Blood Count 38.1#*H, Red Blood Count 3.60L, Hemoglobin 11.0L, Hematocrit 34.4L, Mean Corpuscular Volume 96, Mean Corpuscular Hemoglobin 30.6, Mean Corpuscular Hemoglobin Concent 32.0, Red Cell Distribution Width 12.3, Platelet Count 49L, Mean Platelet Volume 9.0, Neutrophils (%) (Auto) , Lymphocytes (%) ( Auto) , Monocytes (%) (Auto) , Eosinophils (%) (Auto) , Basophils (%) (Auto) , Differential Total Cells Counted 100, Neutrophils % (Manual) 86H, Lymphocytes % (Manual) 1L, Monocytes % (Manual) 2, Eosinophils % (Manual) 0, Basophils % ( Manual) 0, Band Neutrophils 11H, Platelet Estimate DecreasedL, Platelet Morphology Normal, Hypochromasia 1+, Sodium Level 137, Potassium Level 3.5, Chloride Level 104, Carbon Dioxide Level 20, Anion Gap 13, Blood Urea Nitrogen 11, Creatinine 0.8, Estimat Glomerular Filtration Rate , Glucose Level 193H, Calcium Level 7.6L, Total Bilirubin 1.0, Aspartate Amino Transf (AST/SGOT) 38, Alanine Aminotransferase (ALT/SGPT) 40H, Alkaline Phosphatase 66, Total Protein 5.5L, Albumin 3.1L, Globulin 2.4, Albumin/Globulin Ratio 1.2 04/10/17 05:40: White Blood Count 39.2*H, Red Blood Count 3.60L, Hemoglobin 11.0L, Hematocrit 34.7L, Mean Corpuscular Volume 96, Mean Corpuscular Hemoglobin 30.7, Mean Corpuscular Hemoglobin Concent 31.8L, Red Cell Distribution Width 12.6, Platelet Count 42L, Mean Platelet Volume 9.0, Neutrophils (%) (Auto) , Lymphocytes (%) (Auto) , Monocytes (%) (Auto) , Eosinophils (%) (Auto) , Basophils (%) (Auto) , Differential Total Cells Counted 100, Neutrophils % ( Manual) 80H, Lymphocytes % (Manual) 2L, Monocytes % (Manual) 3, Eosinophils % ( Manual) 0, Basophils % (Manual) 0, Band Neutrophils 15H, Platelet Estimate DecreasedL, Platelet Morphology Normal, Hypochromasia 1+, Sodium Level 139, Potassium Level 4.0, Chloride Level 103, Carbon Dioxide Level 18L, Anion Gap 18H , Blood Urea Nitrogen 11, Creatinine 0.8, Estimat Glomerular Filtration Rate , Glucose Level 164H, Calcium Level 7.9L, Total Bilirubin 1.0, Aspartate Amino Transf (AST/SGOT) 39, Alanine Aminotransferase (ALT/SGPT) 37H, Alkaline Phosphatase 73, Total Protein 5.6L, Albumin 2.9L, Globulin 2.7, Albumin/ Globulin Ratio 1.0, Lactic Acid Level 4.40H 04/10/17 07:55: Lactic Acid Level 3.30H 04/10/17 08:00: Total Creatine Kinase 108, Creatine Kinase MB 3.6, Creatine Kinase MB Relative Index 3.3, Troponin I 0.44*H, Pro-B-Type Natriuretic Peptide [id number] 04/10/17 09:40: Arterial Blood pH 7.410, Arterial Blood Partial Pressure CO2 29.1L, Arterial Blood Partial Pressure O2 122.6H, Arterial Blood HCO3 17.9L, Arterial Blood Oxygen Saturation 98.1H, Arterial Blood Base Excess -5.6, Cam Test Positive 04/10/17 14:30: Lactic Acid Level 2.50H Height (Feet): 5 Height (Inches): 4.00 Weight (Pounds): 125 General Appearance: lethargic, confused Cardiovascular: regularly irregular Respiratory/Chest: decreased breath sounds Abdomen: non tender, soft Extremities: trace edema Neurologic: disoriented RIKI ZHANG Apr 10, 2017 22:44
[2017-04-11] VITALS (22 sets, daily range): BP systolic 87–123; BP diastolic 56–91
--- NOTE | 2017-04-11 00:45 | Progress Note ---
DATE: 04/10/2017 GENERAL CARDIOLOGY PROGRESS NOTE SUBJECTIVE: The patient remains in the intensive care unit. Condition remains critical. Prognosis again remains guarded. The patient remains on pressor support. Blood pressure range 90 to 110 systolic. The patient has worsening white blood count of almost 40,000. She is on broad-spectrum antibiotics including linezolid. The patient had a 2D echocardiogram today revealed normal ejection fraction with moderate degenerative valve disease and regurgitation of the mitral and aortic valve. There was also minimally increased PA systolic pressure of 37 mmHg. Monitored rhythm, sinus, sinus tachycardia and rare episodes of sustained paroxysmal atrial fibrillation. OBJECTIVE: GENERAL: Withdrawn on BiPAP. LUNGS: Bilateral rhonchi. HEART: Regular rhythm. Rapid rate. Normal S1 and S2. ABDOMEN: Soft. EXTREMITIES: No edema. LABORATORY AND DIAGNOSTIC DATA: Lactic acid is still elevated at 3.3. Troponin 0.44. Pro-natriuretic peptide 20,000. IMPRESSION: 1. Sepsis with shock. 2. Acute respiratory failure with hypoxia. 3. Acute myocardial ischemia and possible non-ST elevation infarction. 4. Acute diastolic congestive heart failure. 5. Degenerative valve disease. 6. Urinary tract infection. PLAN: 1. Continue volume resuscitation with IV fluids. 2. Antibiotics per Infectious Disease job service consultant. 3. No diuresis at this time. 4. Hold antihypertensives. 5. Continue BiPAP support. 6. Taper pressors as able. 7. DVT and stress ulcer prophylaxis. 8. Do Not Resuscitate based on advanced directive. Milton Echevarria M.D. DR: REJI JOB#: [id number] CC:
[2017-04-11 05:19] LABS: MEAN CORPUSCULAR HEMOGLOBIN 31.8 PG (27.0-31.0); MEAN CORPUSCULAR HGB CONC 33.2 G/DL (32.0-36.0); MEAN CORPUSCULAR VOLUME 96 FL (80-99); MEAN PLATELET VOLUME 12.2 FL (6.5-10.1); PLATELET COUNT 33 K/UL (150-450); RED BLOOD COUNT 3.46 M/UL (4.20-5.40); RED CELL DISTRIBUTION WIDTH 12.5 % (11.6-14.8)
[2017-04-11 05:43] LABS: ANION GAP 9 (5-15); CALCIUM 7.4 mg/dL (8.6-10.2); CARBON DIOXIDE 21 mEQ/L (20-30); CHLORIDE 111 mEQ/L (98-107); CREATININE 0.5 mg/dL (0.5-0.9); HEMOLYSIS 7; POTASSIUM 2.9 mEQ/L (3.4-4.9); SODIUM 141 mEQ/L (135-145)
[2017-04-11 05:44] LABS: WHITE BLOOD COUNT 26.2 K/UL (4.8-10.8)
[2017-04-11 07:39] LABS: ABG ALLEN TEST POSITIVE; ABG BASE EXCESS -4.2; ABG PCO2 30.9 mmHg (35.0-45.0)
[2017-04-11 08:10] LABS: BAND NEUTROPHILS % (MANUAL) 8 % (0-8); BASOPHILS % (MANUAL) 0 % (0-2); EOSINOPHILS % (MANUAL) 0 % (0-3); HYPOCHROMASIA 1+; LYMPHOCYTES % (MANUAL) 5 % (20-45); NEUTROPHILS % (MANUAL) 86 % (45-75); PLATELET ESTIMATE DECREASED; PLATELET MORPHOLOGY NORMAL; TOTAL CELLS COUNTED 100
[2017-04-11] MEDS: Pantoprazole Inj IVP SCH (08:46)
[2017-04-11 09:27] LABS: OTHERS PATHOLOGIST COMMENT
[2017-04-11] MEDS: DOPamine 400mg/250ml 250 ML IV SCH (09:30)
--- NOTE | 2017-04-11 10:38 | Diagnostic Imaging Report ---
Indication: ABN CHST shortness of breath abnormal chest sounds Technique: One view of the chest Comparison: 04/09/2017 Findings: Right jugular central venous catheter is again demonstrated. There is increasing bilateral interstitial and alveolar edema and increasing left and likely right pleural effusion. The heart remains enlarged. Impression: Increased bilateral interstitial and alveolar edema, left and likely right pleural fluid, over 2 days
[2017-04-11] MEDS: Meropenem 1 GM in NS 110 ML IVPB SCH ×2 (11:00→23:16)
[2017-04-11] MEDS: Amikacin 750 MG in NS 110 ML IV SCH (12:56)
--- NOTE | 2017-04-11 13:05 | Nephrology Progress Note ---
Assessment/Plan Problem List: (1) Sepsis (2) Hypotension (3) bipap (4) Acute respiratory failure (5) Septic shock (6) Fever (7) UTI (urinary tract infection) (8) Shock liver (9) SHAYNE (acute kidney injury) (10) Dementia (11) Alzheimer's dementia Plan Continue current treatment plan Cardio and pulmo following Monitor lytes, replace prn Monitor counts, hematology following Abx per ID Monitor neuro status Continue tube feeding DVT prophylaxis with SCD Monitor intake and output - continue woo AM labs Subjective ROS Limited/Unobtainable: Yes Subjective Awake, tracks movement, family at bedside Objective Objective Last 24 Hour Vital Signs Date Time Temp Pulse Resp B/P Pulse Ox O2 Delivery O2 Flow Rate FiO2 04/11/17 13:01 97.7 92 20 116/72 98 Nasal Cannula 2.0 04/11/17 11:57 98 04/11/17 11:55 98.1 94 30 104/67 100 Nasal Cannula 2.0 04/11/17 11:00 97 28 99/59 99 Nasal Cannula 2.0 04/11/17 10:00 96 25 115/70 99 Nasal Cannula 2.0 04/11/17 09:30 99/59 04/11/17 09:00 25 105/91 100 Nasal Cannula 2.0 04/11/17 08:00 99.1 84 27 109/69 100 Nasal Cannula 2.0 04/11/17 08:00 84 04/11/17 07:25 Nasal Cannula 3.0 32 04/11/17 07:25 76 18 Nasal Cannula 3.0 32 04/11/17 07:00 89 30 101/61 100 Nasal Cannula 2.0 04/11/17 06:00 100/71 04/11/17 05:50 88 28 112/65 99 Nasal Cannula 2.0 04/11/17 05:30 85 26 105/60 96 Nasal Cannula 2.0 04/11/17 05:00 88 28 102/68 96 Nasal Cannula 2.0 04/11/17 05:00 102/68 04/11/17 04:30 84 28 123/84 100 Nasal Cannula 2.0 04/11/17 04:09 85 04/11/17 04:00 112/65 04/11/17 04:00 98.9 88 28 112/65 99 Nasal Cannula 2.0 04/11/17 03:30 87 28 92/59 99 Nasal Cannula 2.0 04/11/17 03:10 88 25 98 3.0 32 04/11/17 03:00 85 27 90/58 99 Nasal Cannula 2.0 04/11/17 03:00 90/58 04/11/17 02:30 97 27 88/60 99 Nasal Cannula 2.0 04/11/17 02:00 95/63 04/11/17 02:00 95 26 95/63 99 Nasal Cannula 2.0 04/11/17 01:43 102 28 100 3.0 32 04/11/17 01:30 103 26 88/56 99 Nasal Cannula 2.0 04/11/17 01:00 87/59 04/11/17 01:00 105 28 87/59 99 Nasal Cannula 2.0 04/11/17 00:30 99 27 91/64 99 Nasal Cannula 2.0 04/11/17 00:00 98.5 97 26 117/68 99 Nasal Cannula 2.0 04/11/17 00:00 117/68 04/10/17 23:30 100 25 98/66 97 Nasal Cannula 2.0 04/10/17 23:00 106 28 102/66 97 Nasal Cannula 2.0 04/10/17 22:30 105 28 110/93 97 Nasal Cannula 2.0 04/10/17 22:00 110 28 119/93 97 Nasal Cannula 2.0 04/10/17 21:30 109 28 117/71 97 Nasal Cannula 2.0 04/10/17 21:29 3.0 04/10/17 21:00 117/72 04/10/17 21:00 108 28 118/71 98 Nasal Cannula 2.0 04/10/17 20:43 118/71 04/10/17 20:30 104 26 117/72 99 Nasal Cannula 2.0 04/10/17 20:00 111/65 04/10/17 20:00 102 04/10/17 20:00 98.8 102 26 111/65 99 Nasal Cannula 2.0 04/10/17 19:38 103/66 04/10/17 19:30 90 28 110/69 100 Nasal Cannula 2.0 04/10/17 19:09 83 26 99 3.0 32 04/10/17 19:00 91 27 79/52 98 Nasal Cannula 2.0 7/13/17 18:45 90 28 110/69 100 Bi-pap 35 7/13/17 18:30 87 22 99/69 100 Bi-pap 35 7/13/17 18:15 87 22 92/61 100 Bi-pap 35 7/13/17 18:00 88 25 105/67 100 Bi-pap 35 7/13/17 18:00 102/67 7/13/17 17:45 89 26 101/58 100 Bi-pap 35 7/13/17 17:30 89 25 98/64 100 Bi-pap 35 7/13/17 17:15 92 26 103/66 100 Bi-pap 35 7/13/17 17:00 91 26 98/66 100 Bi-pap 35 7/13/17 17:00 98/66 7/13/17 16:45 90 25 105/78 100 Bi-pap 35 7/13/17 16:30 93 26 102/65 100 Bi-pap 35 7/13/17 16:30 91 30 100 Facial 35 7/13/17 16:15 90 24 101/63 100 Bi-pap 35 7/13/17 16:00 92 7//17 16:00 99.2 91 24 92/59 100 Bi-pap 35 7/13/17 16:00 92/59 7/13/17 16:00 35 7/13/17 15:45 92 26 94/57 100 Bi-pap 35 7/13/17 15:30 90 26 103/61 100 Bi-pap 35 7/13/17 15:15 91 25 98/57 100 Bi-pap 35 7/13/17 15:00 90 28 109/63 100 Bi-pap 35 7/13/17 15:00 109/63 7/13/17 14:45 91 27 99/63 100 Bi-pap 35 7/13/17 14:30 91 28 101/64 100 Bi-pap 35 7/13/17 14:15 109 27 100/62 100 Bi-pap 35 7/13/17 14:00 108 27 104/55 100 Bi-pap 35 7/13/17 14:00 104/55 7/13/17 13:45 112 28 114/69 100 Bi-pap 35 7/13/17 13:45 114/69 7/13/17 13:30 114 28 110/70 100 Bi-pap 35 7/13/17 13:15 115 29 114/69 100 Bi-pap 35 04/10/17 13:12 104/59 04/10/17 13:05 104/59 Intake and Output 04/10/17 04/11/17 19:00 07:00 Intake Total 3045.578 ml 2012.20 ml Output Total 1145 ml 780 ml Balance 1900.578 ml 1232.20 ml Intake IV Total 2895.578 ml 2012.20 ml Other 150 ml Output Urine Total 1145 ml 780 ml # Bowel Movements 7 Laboratory Tests 04/10/17 14:30: Lactic Acid Level 2.50H 04/10/17 20:00: Stool Occult Blood Negative 04/11/17 00:25: Random Amikacin Level 7.1 04/11/17 04:00: White Blood Count 26.2*H, Red Blood Count 3.46L, Hemoglobin 11.0L, Hematocrit 33.2L, Mean Corpuscular Volume 96, Mean Corpuscular Hemoglobin 31.8H, Mean Corpuscular Hemoglobin Concent 33.2, Red Cell Distribution Width 12.5, Platelet Count 33L, Mean Platelet Volume 12.2H, Neutrophils (%) (Auto) , Lymphocytes (%) (Auto) , Monocytes (%) (Auto) , Eosinophils (%) (Auto) , Basophils (%) (Auto) , Differential Total Cells Counted 100, Neutrophils % (Manual) 86H, Lymphocytes % (Manual) 5L, Monocytes % (Manual) 1, Eosinophils % (Manual) 0, Basophils % ( Manual) 0, Band Neutrophils 8, Platelet Estimate DecreasedL, Platelet Morphology Normal, Hypochromasia 1+, Sodium Level 141, Potassium Level 2.9L, Chloride Level 111H, Carbon Dioxide Level 21, Anion Gap 9, Blood Urea Nitrogen 7 , Creatinine 0.5, Estimat Glomerular Filtration Rate , Glucose Level 104, Calcium Level 7.4L, Pro-B-Type Natriuretic Peptide [id number] 04/11/17 04:30: Stool Occult Blood Negative 04/11/17 07:25: Arterial Blood pH 7.417, Arterial Blood Partial Pressure CO2 30.9L, Arterial Blood Partial Pressure O2 80.8, Arterial Blood HCO3 19.5L, Arterial Blood Oxygen Saturation 96.2, Arterial Blood Base Excess -4.2, Cam Test Positive Height (Feet): 5 Height (Inches): 4.00 Weight (Pounds): 125 General Appearance: no apparent distress EENT: normal ENT inspection Neck: non-tender, normal alignment Cardiovascular: normal rate, regular rhythm, no JVD Respiratory/Chest: decreased breath sounds Abdomen: non tender, soft, other - PEG Genitourinary/Rectal: other - WOO Neurologic: alert, motor weakness Rosa Isela Villavicencio N.P. Apr 11, 2017 13:05
[2017-04-11] MEDS ORDERED: Amikacin Rx to dose MISC PRN (15:30)
--- NOTE | 2017-04-11 16:06 | Infectious Diseases Prog Note ---
Assessment/Plan Problems: (1) Septic shock Assessment & Plan: with refractory hypotension, due to gram negative rods, now improving on meropenem, and amikacin for double coverage , will D/C zyvox , continue fluids and monitor culture (2) UTI (urinary tract infection) Assessment & Plan: with proteus mirabillis , on meropenem and amikacin, await blood culture results (3) Acute respiratory failure Assessment & Plan: due to the above, improving, S/P BIPAP, pulmonary is following, monitor ABG, and CXR (4) Shock liver Assessment & Plan: due to the above, monitor LFT, will screen for hepatitis (5) Fever Assessment & Plan: due to sepsis, continue tylenol and cooling measures (6) SHAYNE (acute kidney injury) Assessment & Plan: due to septic shock and hypotension, continue hydration and pressors, monitor UOP, renal is following Subjective ROS Limited/Unobtainable: Yes Allergies: Coded Allergies: No Known Allergies (Unverified , 04/09/17) Subjective she was transfered out of ICU, off BIPAP, more awake and alert, respond to verbal commands, daughter at the bedside , open eyes spontaneously, not in distress, afebrile.off pressors Objective Vital Signs Last 24 Hour Vital Signs Date Time Temp Pulse Resp B/P Pulse Ox O2 Delivery O2 Flow Rate FiO2 04/11/17 13:01 97.7 92 20 116/72 98 Nasal Cannula 2.0 04/11/17 11:57 98 04/11/17 11:55 98.1 94 30 104/67 100 Nasal Cannula 2.0 04/11/17 11:00 97 28 99/59 99 Nasal Cannula 2.0 04/11/17 10:00 96 25 115/70 99 Nasal Cannula 2.0 04/11/17 09:30 99/59 04/11/17 09:00 25 105/91 100 Nasal Cannula 2.0 04/11/17 08:00 99.1 84 27 109/69 100 Nasal Cannula 2.0 04/11/17 08:00 84 04/11/17 07:25 Nasal Cannula 3.0 32 04/11/17 07:25 76 18 Nasal Cannula 3.0 32 04/11/17 07:00 89 30 101/61 100 Nasal Cannula 2.0 04/11/17 06:00 100/71 04/11/17 05:50 88 28 112/65 99 Nasal Cannula 2.0 04/11/17 05:30 85 26 105/60 96 Nasal Cannula 2.0 04/11/17 05:00 88 28 102/68 96 Nasal Cannula 2.0 04/11/17 05:00 102/68 04/11/17 04:30 84 28 123/84 100 Nasal Cannula 2.0 04/11/17 04:09 85 04/11/17 04:00 112/65 04/11/17 04:00 98.9 88 28 112/65 99 Nasal Cannula 2.0 04/11/17 03:30 87 28 92/59 99 Nasal Cannula 2.0 04/11/17 03:10 88 25 98 3.0 32 04/11/17 03:00 85 27 90/58 99 Nasal Cannula 2.0 04/11/17 03:00 90/58 04/11/17 02:30 97 27 88/60 99 Nasal Cannula 2.0 04/11/17 02:00 95/63 04/11/17 02:00 95 26 95/63 99 Nasal Cannula 2.0 04/11/17 01:43 102 28 100 3.0 32 04/11/17 01:30 103 26 88/56 99 Nasal Cannula 2.0 04/11/17 01:00 87/59 04/11/17 01:00 105 28 87/59 99 Nasal Cannula 2.0 04/11/17 00:30 99 27 91/64 99 Nasal Cannula 2.0 04/11/17 00:00 98.5 97 26 117/68 99 Nasal Cannula 2.0 04/11/17 00:00 117/68 04/10/17 23:30 100 25 98/66 97 Nasal Cannula 2.0 04/10/17 23:00 106 28 102/66 97 Nasal Cannula 2.0 04/10/17 22:30 105 28 110/93 97 Nasal Cannula 2.0 04/10/17 22:00 110 28 119/93 97 Nasal Cannula 2.0 04/10/17 21:30 109 28 117/71 97 Nasal Cannula 2.0 04/10/17 21:29 3.0 04/10/17 21:00 117/72 04/10/17 21:00 108 28 118/71 98 Nasal Cannula 2.0 04/10/17 20:43 118/71 7/13/17 20:30 104 26 117/72 99 Nasal Cannula 2.0 04/10/17 20:00 111/65 04/10/17 20:00 102 04/10/17 20:00 98.8 102 26 111/65 99 Nasal Cannula 2.0 04/10/17 19:38 103/66 04/10/17 19:30 90 28 110/69 100 Nasal Cannula 2.0 04/10/17 19:09 83 26 99 3.0 32 04/10/17 19:00 91 27 79/52 98 Nasal Cannula 2.0 04/10/17 18:45 90 28 110/69 100 Bi-pap 35 04/10/17 18:30 87 22 99/69 100 Bi-pap 35 04/10/17 18:15 87 22 92/61 100 Bi-pap 35 04/10/17 18:00 88 25 105/67 100 Bi-pap 35 04/10/17 18:00 102/67 04/10/17 17:45 89 26 101/58 100 Bi-pap 35 04/10/17 17:30 89 25 98/64 100 Bi-pap 35 04/10/17 17:15 92 26 103/66 100 Bi-pap 35 04/10/17 17:00 91 26 98/66 100 Bi-pap 35 04/10/17 17:00 98/66 04/10/17 16:45 90 25 105/78 100 Bi-pap 35 04/10/17 16:30 93 26 102/65 100 Bi-pap 35 04/10/17 16:30 91 30 100 Facial 35 04/10/17 16:15 90 24 101/63 100 Bi-pap 35 Height (Feet): 5 Height (Inches): 4.00 Weight (Pounds): 125 General Appearance: WD/WN, no acute distress HEENT: normocephalic, atraumatic, anicteric, mucous membranes moist, supple, no JVD Respiratory/Chest: chest wall non-tender, normal breath sounds, no respiratory distress, no accessory muscle use, decreased breath sounds Cardiovascular: normal peripheral pulses, normal rate, regular rhythm, no gallop/murmur, no JVD Abdomen: normal bowel sounds, soft, non tender, no organomegaly, non distended , no mass, no scars Extremities: no cyanosis, no clubbing Skin: no rash, no lesions Musculoskeletal: normal muscle bulk, no effusion Microbiology Date/Time Source Procedure Growth Status 04/09/17 11:30 Blood Blood Culture - Preliminary Gram Negative Bacillus 1 Resulted 04/09/17 11:20 Blood Blood Culture - Preliminary Gram Negative Bacillus 1 Resulted 04/09/17 02:40 Blood Blood Culture - Preliminary NO GROWTH AFTER 48 HOURS Resulted 04/09/17 02:25 Blood Blood Culture - Preliminary Gram Negative Bacillus 1 Resulted 04/09/17 04:30 Nasal Nares MRSA Culture - Final Staphylococcus Aureus - Mrsa Complete 04/09/17 03:05 Urine,Clean Catch Urine Culture - Final Proteus Mirabilis Complete 04/09/17 04:30 Rectum VRE Culture - Final NO VANCOMYCIN RESISTANT ENTEROCOCCUS ... Complete Laboratory Tests Test 04/10/17 20:00 04/11/17 00:25 04/11/17 04:00 04/11/17 04:30 Stool Occult Blood Negative (NEGATIVE) Negative (NEGATIVE) Random Amikacin Level 7.1 ug/mL White Blood Count 26.2 K/UL (4.8-10.8) *H Red Blood Count 3.46 M/UL (4.20-5.40) L Hemoglobin 11.0 G/DL (12.0-16.0) L Hematocrit 33.2 % (37.0-47.0) L Mean Corpuscular Volume 96 FL (80-99) Mean Corpuscular Hemoglobin 31.8 PG (27.0-31.0) H Mean Corpuscular Hemoglobin Concent 33.2 G/DL (32.0-36.0) Red Cell Distribution Width 12.5 % (11.6-14.8) Platelet Count 33 K/UL (150-450) L Mean Platelet Volume 12.2 FL (6.5-10.1) H Neutrophils (%) (Auto) % (45.0-75.0) Lymphocytes (%) (Auto) % (20.0-45.0) Monocytes (%) (Auto) % (1.0-10.0) Eosinophils (%) (Auto) % (0.0-3.0) Basophils (%) (Auto) % (0.0-2.0) Differential Total Cells Counted 100 Neutrophils % (Manual) 86 % (45-75) H Lymphocytes % (Manual) 5 % (20-45) L Monocytes % (Manual) 1 % (1-10) Eosinophils % (Manual) 0 % (0-3) Basophils % (Manual) 0 % (0-2) Band Neutrophils 8 % (0-8) Platelet Estimate Decreased L Platelet Morphology Normal Hypochromasia 1+ Sodium Level 141 mEQ/L (135-145) Potassium Level 2.9 mEQ/L (3.4-4.9) L Chloride Level 111 mEQ/L (98-107) H Carbon Dioxide Level 21 mEQ/L (20-30) Anion Gap 9 (5-15) Blood Urea Nitrogen 7 mg/dL (7-23) Creatinine 0.5 mg/dL (0.5-0.9) Estimat Glomerular Filtration Rate mL/min (>60) Glucose Level 104 mg/dL (74-106) Calcium Level 7.4 mg/dL (8.6-10.2) L Pro-B-Type Natriuretic Peptide 72806 pg/mL (0-450) H Test 04/11/17 07:25 Arterial Blood pH 7.417 (7.350-7.450) Arterial Blood Partial Pressure CO2 30.9 mmHg (35.0-45.0) L Arterial Blood Partial Pressure O2 80.8 mmHg (75.0-100.0) Arterial Blood HCO3 19.5 mmol/L (22.0-26.0) L Arterial Blood Oxygen Saturation 96.2 % (92.0-98.0) Arterial Blood Base Excess -4.2 Cam Test Positive Current Medications Medications (Trade) Dose Ordered Sig/Yissel Route PRN Reason Start Time Stop Time Status Last Admin Dose Admin Acetaminophen (Tylenol) 650 mg Q4H PRN ORAL Mild Pain (Pain Scale 1-3) 04/11/17 15:30 05/11/17 15:29 Amikacin Protocol (Amikacin pharmacy to dose) 1 ea DAILY PRN MISC Per rx protocol 04/11/17 15:30 05/11/17 15:29 Amikacin Sulfate 750 mg/Sodium Chloride 113 ml @ 113 mls/hr Q24H IV 04/12/17 12:00 04/19/17 11:59 Chlorhexidine Gluconate (Chandrika-Hex 2%) 1 applic QHS TOPIC 04/11/17 21:00 05/11/17 20:59 Dextrose (Dextrose 50%) STAT PRN IV Hypoglycemia 7/14/17 15:30 05/11/17 15:29 Linezolid 300 ml @ 300 mls/hr Q12HR IVPB 04/11/17 21:00 04/17/17 20:59 Meropenem 1 gm/ Sodium Chloride 110 ml @ 220 mls/hr Q12HR@1100,2300 IVPB 04/11/17 23:00 04/15/17 22:59 Pantoprazole (Protonix) 40 mg DAILY IVP 04/12/17 09:00 05/12/17 08:59 Potassium Chloride (KCl 20mEq/100ml Premix) 100 ml @ 50 mls/hr Q4H IVPB 04/11/17 15:30 04/11/17 17:29 04/11/17 15:47 Sodium Chloride 1,000 ml @ 150 mls/hr Q6H40M IVLG 04/11/17 15:30 05/11/17 15:29 Alberto Philip M.D. Apr 11, 2017 16:06
--- NOTE | 2017-04-11 17:22 | Pulmonology Progress Note ---
Assessment/Plan Assessment/Plan IMPRESSION: 1. Urinary tract infection. 2. Septic, septic shock. 3. Do Not Intubate. 4. Respiratory failure on BiPAP. Resolved now 5. Dementia. DISCUSSION: Broad-spectrum antibiotics. Levophed, pressors. I will discontinue BiPAP. I will follow as bearingizer. labs in AM Subjective Interval Events: Off BiPAP; ABG adequate on nasal O2; remains on pressors Constitutional: Reports: no symptoms HEENT: Repors: no symptoms Respiratory: Reports: no symptoms Cardiovascular: Reports: no symptoms Gastrointestinal/Abdominal: Reports: no symptoms Allergies: Coded Allergies: No Known Allergies (Unverified , 04/09/17) Objective Last 24 Hour Vital Signs Date Time Temp Pulse Resp B/P Pulse Ox O2 Delivery O2 Flow Rate FiO2 04/11/17 16:00 97.2 83 20 118/65 96 Nasal Cannula 2.0 04/11/17 13:01 97.7 92 20 116/72 98 Nasal Cannula 2.0 04/11/17 11:57 98 04/11/17 11:55 98.1 94 30 104/67 100 Nasal Cannula 2.0 04/11/17 11:00 97 28 99/59 99 Nasal Cannula 2.0 04/11/17 10:00 96 25 115/70 99 Nasal Cannula 2.0 04/11/17 09:30 99/59 04/11/17 09:00 25 105/91 100 Nasal Cannula 2.0 04/11/17 08:00 99.1 84 27 109/69 100 Nasal Cannula 2.0 04/11/17 08:00 84 04/11/17 07:25 Nasal Cannula 3.0 32 04/11/17 07:25 76 18 Nasal Cannula 3.0 32 04/11/17 07:00 89 30 101/61 100 Nasal Cannula 2.0 04/11/17 06:00 100/71 04/11/17 05:50 88 28 112/65 99 Nasal Cannula 2.0 04/11/17 05:30 85 26 105/60 96 Nasal Cannula 2.0 04/11/17 05:00 88 28 102/68 96 Nasal Cannula 2.0 04/11/17 05:00 102/68 04/11/17 04:30 84 28 123/84 100 Nasal Cannula 2.0 04/11/17 04:09 85 04/11/17 04:00 112/65 04/11/17 04:00 98.9 88 28 112/65 99 Nasal Cannula 2.0 04/11/17 03:30 87 28 92/59 99 Nasal Cannula 2.0 04/11/17 03:10 88 25 98 3.0 32 04/11/17 03:00 85 27 90/58 99 Nasal Cannula 2.0 04/11/17 03:00 90/58 04/11/17 02:30 97 27 88/60 99 Nasal Cannula 2.0 04/11/17 02:00 95/63 04/11/17 02:00 95 26 95/63 99 Nasal Cannula 2.0 04/11/17 01:43 102 28 100 3.0 32 04/11/17 01:30 103 26 88/56 99 Nasal Cannula 2.0 04/11/17 01:00 87/59 04/11/17 01:00 105 28 87/59 99 Nasal Cannula 2.0 04/11/17 00:30 99 27 91/64 99 Nasal Cannula 2.0 04/11/17 00:00 98.5 97 26 117/68 99 Nasal Cannula 2.0 04/11/17 00:00 117/68 04/10/17 23:30 100 25 98/66 97 Nasal Cannula 2.0 04/10/17 23:00 106 28 102/66 97 Nasal Cannula 2.0 04/10/17 22:30 105 28 110/93 97 Nasal Cannula 2.0 04/10/17 22:00 110 28 119/93 97 Nasal Cannula 2.0 04/10/17 21:30 109 28 117/71 97 Nasal Cannula 2.0 04/10/17 21:29 3.0 04/10/17 21:00 117/72 04/10/17 21:00 108 28 118/71 98 Nasal Cannula 2.0 04/10/17 20:43 118/71 04/10/17 20:30 104 26 117/72 99 Nasal Cannula 2.0 04/10/17 20:00 111/65 04/10/17 20:00 102 04/10/17 20:00 98.8 102 26 111/65 99 Nasal Cannula 2.0 04/10/17 19:38 103/66 04/10/17 19:30 90 28 110/69 100 Nasal Cannula 2.0 04/10/17 19:09 83 26 99 3.0 32 04/10/17 19:00 91 27 79/52 98 Nasal Cannula 2.0 04/10/17 18:45 90 28 110/69 100 Bi-pap 35 04/10/17 18:30 87 22 99/69 100 Bi-pap 35 04/10/17 18:15 87 22 92/61 100 Bi-pap 35 04/10/17 18:00 88 25 105/67 100 Bi-pap 35 04/10/17 18:00 102/67 04/10/17 17:45 89 26 101/58 100 Bi-pap 35 04/10/17 17:30 89 25 98/64 100 Bi-pap 35 Intake and Output 04/10/17 04/11/17 19:00 07:00 Intake Total 3045.578 ml 2012.20 ml Output Total 1145 ml 780 ml Balance 1900.578 ml 1232.20 ml Intake IV Total 2895.578 ml 2012.20 ml Other 150 ml Output Urine Total 1145 ml 780 ml # Bowel Movements 7 General Appearance: no acute distress HEENT: normocephalic Respiratory/Chest: chest wall non-tender, lungs clear Cardiovascular: normal peripheral pulses, normal rate Microbiology Date/Time Source Procedure Growth Status 04/09/17 11:30 Blood Blood Culture - Preliminary Gram Negative Bacillus 1 Resulted 04/09/17 11:20 Blood Blood Culture - Preliminary Gram Negative Bacillus 1 Resulted 04/09/17 02:40 Blood Blood Culture - Preliminary NO GROWTH AFTER 48 HOURS Resulted 04/09/17 02:25 Blood Blood Culture - Preliminary Gram Negative Bacillus 1 Resulted 04/09/17 04:30 Nasal Nares MRSA Culture - Final Staphylococcus Aureus - Mrsa Complete 04/09/17 03:05 Urine,Clean Catch Urine Culture - Final Proteus Mirabilis Complete 04/09/17 04:30 Rectum VRE Culture - Final NO VANCOMYCIN RESISTANT ENTEROCOCCUS ... Complete Laboratory Tests 04/10/17 20:00: Stool Occult Blood Negative 04/11/17 00:25: Random Amikacin Level 7.1 04/11/17 04:00: White Blood Count 26.2*H, Red Blood Count 3.46L, Hemoglobin 11.0L, Hematocrit 33.2L, Mean Corpuscular Volume 96, Mean Corpuscular Hemoglobin 31.8H, Mean Corpuscular Hemoglobin Concent 33.2, Red Cell Distribution Width 12.5, Platelet Count 33L, Mean Platelet Volume 12.2H, Neutrophils (%) (Auto) , Lymphocytes (%) (Auto) , Monocytes (%) (Auto) , Eosinophils (%) (Auto) , Basophils (%) (Auto) , Differential Total Cells Counted 100, Neutrophils % (Manual) 86H, Lymphocytes % (Manual) 5L, Monocytes % (Manual) 1, Eosinophils % (Manual) 0, Basophils % ( Manual) 0, Band Neutrophils 8, Platelet Estimate DecreasedL, Platelet Morphology Normal, Hypochromasia 1+, Sodium Level 141, Potassium Level 2.9L, Chloride Level 111H, Carbon Dioxide Level 21, Anion Gap 9, Blood Urea Nitrogen 7 , Creatinine 0.5, Estimat Glomerular Filtration Rate , Glucose Level 104, Calcium Level 7.4L, Pro-B-Type Natriuretic Peptide [id number] 04/11/17 04:30: Stool Occult Blood Negative 04/11/17 07:25: Arterial Blood pH 7.417, Arterial Blood Partial Pressure CO2 30.9L, Arterial Blood Partial Pressure O2 80.8, Arterial Blood HCO3 19.5L, Arterial Blood Oxygen Saturation 96.2, Arterial Blood Base Excess -4.2, Cam Test Positive 04/11/17 16:35: Hepatitis A IgM Antibody [Pending], Hepatitis B Surface Antigen [Pending], Hepatitis B Core IgM Antibody [Pending], Hepatitis C Antibody [Pending] Current Medications Medications (Trade) Dose Ordered Sig/Yissel Route PRN Reason Start Time Stop Time Status Last Admin Dose Admin Acetaminophen (Tylenol) 650 mg Q4H PRN ORAL Mild Pain (Pain Scale 1-3) 04/11/17 15:30 05/11/17 15:29 Amikacin Protocol (Amikacin pharmacy to dose) 1 ea DAILY PRN MISC Per rx protocol 04/11/17 15:30 05/11/17 15:29 Amikacin Sulfate 750 mg/Sodium Chloride 113 ml @ 113 mls/hr Q24H IV 04/12/17 12:00 04/19/17 11:59 Chlorhexidine Gluconate (Chandrika-Hex 2%) 1 applic QHS TOPIC 04/11/17 21:00 05/11/17 20:59 Dextrose (Dextrose 50%) STAT PRN IV Hypoglycemia 7/14/17 15:30 05/11/17 15:29 Meropenem 1 gm/ Sodium Chloride 110 ml @ 220 mls/hr Q12HR@1100,2300 IVPB 04/11/17 23:00 04/15/17 22:59 Pantoprazole (Protonix) 40 mg DAILY IVP 04/12/17 09:00 05/12/17 08:59 Potassium Chloride (KCl 20mEq/100ml Premix) 100 ml @ 50 mls/hr Q4H IVPB 04/11/17 15:30 04/11/17 17:29 04/11/17 15:47 Sodium Chloride 1,000 ml @ 150 mls/hr Q6H40M IVLG 04/11/17 15:30 05/11/17 15:29 Edd Goins MD Apr 11, 2017 17:22
--- NOTE | 2017-04-11 17:42 | Cardiac Electrophysiology PN ---
Assessment/Plan Assessment/Plan 1. S/P Septic Shock already on broad-spectrum intravenous antibiotics. Off pressors now. 2. PAroxysmal atrial fibrillation. Currently in sinus rhythm 3. Respiratory failure, off BiPAP. The patient is Do Not Intubate status. 4. Do Not Resuscitate and Do Not Intubate. 5. Dysphagia, status post percutaneous endoscopic gastrostomy placement. 6. Advanced dementia. Dw RN and daughter Subjective Subjective Off pressors. Transferred out of ICU. Off BIPAP.Daughter at bedside. Objective Last 24 Hour Vital Signs Date Time Temp Pulse Resp B/P Pulse Ox O2 Delivery O2 Flow Rate FiO2 04/11/17 16:00 97.2 83 20 118/65 96 Nasal Cannula 2.0 04/11/17 13:01 97.7 92 20 116/72 98 Nasal Cannula 2.0 04/11/17 11:57 98 04/11/17 11:55 98.1 94 30 104/67 100 Nasal Cannula 2.0 04/11/17 11:00 97 28 99/59 99 Nasal Cannula 2.0 04/11/17 10:00 96 25 115/70 99 Nasal Cannula 2.0 04/11/17 09:30 99/59 04/11/17 09:00 25 105/91 100 Nasal Cannula 2.0 04/11/17 08:00 99.1 84 27 109/69 100 Nasal Cannula 2.0 04/11/17 08:00 84 04/11/17 07:25 Nasal Cannula 3.0 32 04/11/17 07:25 76 18 Nasal Cannula 3.0 32 04/11/17 07:00 89 30 101/61 100 Nasal Cannula 2.0 04/11/17 06:00 100/71 04/11/17 05:50 88 28 112/65 99 Nasal Cannula 2.0 04/11/17 05:30 85 26 105/60 96 Nasal Cannula 2.0 04/11/17 05:00 88 28 102/68 96 Nasal Cannula 2.0 04/11/17 05:00 102/68 04/11/17 04:30 84 28 123/84 100 Nasal Cannula 2.0 04/11/17 04:09 85 04/11/17 04:00 112/65 04/11/17 04:00 98.9 88 28 112/65 99 Nasal Cannula 2.0 04/11/17 03:30 87 28 92/59 99 Nasal Cannula 2.0 04/11/17 03:10 88 25 98 3.0 32 04/11/17 03:00 85 27 90/58 99 Nasal Cannula 2.0 04/11/17 03:00 90/58 04/11/17 02:30 97 27 88/60 99 Nasal Cannula 2.0 04/11/17 02:00 95/63 04/11/17 02:00 95 26 95/63 99 Nasal Cannula 2.0 04/11/17 01:43 102 28 100 3.0 32 04/11/17 01:30 103 26 88/56 99 Nasal Cannula 2.0 04/11/17 01:00 87/59 04/11/17 01:00 105 28 87/59 99 Nasal Cannula 2.0 04/11/17 00:30 99 27 91/64 99 Nasal Cannula 2.0 04/11/17 00:00 98.5 97 26 117/68 99 Nasal Cannula 2.0 04/11/17 00:00 117/68 04/10/17 23:30 100 25 98/66 97 Nasal Cannula 2.0 04/10/17 23:00 106 28 102/66 97 Nasal Cannula 2.0 04/10/17 22:30 105 28 110/93 97 Nasal Cannula 2.0 04/10/17 22:00 110 28 119/93 97 Nasal Cannula 2.0 04/10/17 21:30 109 28 117/71 97 Nasal Cannula 2.0 04/10/17 21:29 3.0 04/10/17 21:00 117/72 04/10/17 21:00 108 28 118/71 98 Nasal Cannula 2.0 04/10/17 20:43 118/71 04/10/17 20:30 104 26 117/72 99 Nasal Cannula 2.0 04/10/17 20:00 111/65 04/10/17 20:00 102 04/10/17 20:00 98.8 102 26 111/65 99 Nasal Cannula 2.0 04/10/17 19:38 103/66 04/10/17 19:30 90 28 110/69 100 Nasal Cannula 2.0 04/10/17 19:09 83 26 99 3.0 32 04/10/17 19:00 91 27 79/52 98 Nasal Cannula 2.0 04/10/17 18:45 90 28 110/69 100 Bi-pap 35 04/10/17 18:30 87 22 99/69 100 Bi-pap 35 04/10/17 18:15 87 22 92/61 100 Bi-pap 35 04/10/17 18:00 88 25 105/67 100 Bi-pap 35 04/10/17 18:00 102/67 04/10/17 17:45 89 26 101/58 100 Bi-pap 35 Intake and Output 04/10/17 04/11/17 19:00 07:00 Intake Total 3045.578 ml 2012.20 ml Output Total 1145 ml 780 ml Balance 1900.578 ml 1232.20 ml Intake IV Total 2895.578 ml 2012.20 ml Other 150 ml Output Urine Total 1145 ml 780 ml # Bowel Movements 7 Laboratory Tests Test 04/10/17 20:00 04/11/17 00:25 04/11/17 04:00 04/11/17 04:30 Stool Occult Blood Negative (NEGATIVE) Negative (NEGATIVE) Random Amikacin Level 7.1 ug/mL White Blood Count 26.2 K/UL (4.8-10.8) *H Red Blood Count 3.46 M/UL (4.20-5.40) L Hemoglobin 11.0 G/DL (12.0-16.0) L Hematocrit 33.2 % (37.0-47.0) L Mean Corpuscular Volume 96 FL (80-99) Mean Corpuscular Hemoglobin 31.8 PG (27.0-31.0) H Mean Corpuscular Hemoglobin Concent 33.2 G/DL (32.0-36.0) Red Cell Distribution Width 12.5 % (11.6-14.8) Platelet Count 33 K/UL (150-450) L Mean Platelet Volume 12.2 FL (6.5-10.1) H Neutrophils (%) (Auto) % (45.0-75.0) Lymphocytes (%) (Auto) % (20.0-45.0) Monocytes (%) (Auto) % (1.0-10.0) Eosinophils (%) (Auto) % (0.0-3.0) Basophils (%) (Auto) % (0.0-2.0) Differential Total Cells Counted 100 Neutrophils % (Manual) 86 % (45-75) H Lymphocytes % (Manual) 5 % (20-45) L Monocytes % (Manual) 1 % (1-10) Eosinophils % (Manual) 0 % (0-3) Basophils % (Manual) 0 % (0-2) Band Neutrophils 8 % (0-8) Platelet Estimate Decreased L Platelet Morphology Normal Hypochromasia 1+ Sodium Level 141 mEQ/L (135-145) Potassium Level 2.9 mEQ/L (3.4-4.9) L Chloride Level 111 mEQ/L (98-107) H Carbon Dioxide Level 21 mEQ/L (20-30) Anion Gap 9 (5-15) Blood Urea Nitrogen 7 mg/dL (7-23) Creatinine 0.5 mg/dL (0.5-0.9) Estimat Glomerular Filtration Rate mL/min (>60) Glucose Level 104 mg/dL (74-106) Calcium Level 7.4 mg/dL (8.6-10.2) L Pro-B-Type Natriuretic Peptide 03025 pg/mL (0-450) H Test 04/11/17 07:25 04/11/17 16:35 Arterial Blood pH 7.417 (7.350-7.450) Arterial Blood Partial Pressure CO2 30.9 mmHg (35.0-45.0) L Arterial Blood Partial Pressure O2 80.8 mmHg (75.0-100.0) Arterial Blood HCO3 19.5 mmol/L (22.0-26.0) L Arterial Blood Oxygen Saturation 96.2 % (92.0-98.0) Arterial Blood Base Excess -4.2 Cam Test Positive Hepatitis A IgM Antibody Pending Hepatitis B Surface Antigen Pending Hepatitis B Core IgM Antibody Pending Hepatitis C Antibody Pending Microbiology Date/Time Source Procedure Growth Status 04/09/17 11:30 Blood Blood Culture - Preliminary Gram Negative Bacillus 1 Resulted 04/09/17 11:20 Blood Blood Culture - Preliminary Gram Negative Bacillus 1 Resulted 04/09/17 02:40 Blood Blood Culture - Preliminary NO GROWTH AFTER 48 HOURS Resulted 04/09/17 02:25 Blood Blood Culture - Preliminary Gram Negative Bacillus 1 Resulted 04/09/17 04:30 Nasal Nares MRSA Culture - Final Staphylococcus Aureus - Mrsa Complete 04/09/17 03:05 Urine,Clean Catch Urine Culture - Final Proteus Mirabilis Complete 04/09/17 04:30 Rectum VRE Culture - Final NO VANCOMYCIN RESISTANT ENTEROCOCCUS ... Complete Objective HEAD AND NECK: No JVD. LUNGS: Decreased breath sounds. CARDIOVASCULAR: Shows regular S1 and S2 with no gallop. ABDOMEN: Soft. Status post G-tube. EXTREMITIES: Have no pitting edema. JEET MONTE Apr 11, 2017 17:41
[2017-04-11] MEDS: Dyna-Hex 2% Top Sol 8oz TOPIC SCH (21:07)
[2017-04-11 22:10] LABS: ALANINE AMINOTRANSFERASE 20 U/L (3-33); ANION GAP 10 (5-15); ASPARTATE AMINO TRANSFERASE 19 U/L (5-40); CALCIUM 7.7 mg/dL (8.6-10.2); CARBON DIOXIDE 20 mEQ/L (20-30); CHLORIDE 112 mEQ/L (98-107); CREATININE 0.5 mg/dL (0.5-0.9); HEMOLYSIS 6; MAGNESIUM 1.5 mg/dL (1.7-2.5); POTASSIUM 3.4 mEQ/L (3.4-4.9); SODIUM 142 mEQ/L (135-145); TOTAL PROTEIN 4.8 g/dL (6.6-8.7); TROPONIN I < 0.30 ng/mL (<=0.30)
[2017-04-12] VITALS (7 sets, daily range): BP systolic 114–132; BP diastolic 67–85
--- NOTE | 2017-04-12 03:00 | Progress Note ---
DATE: 04/11/2017 CARDIOLOGY PROGRESS NOTE SUBJECTIVE: The patient was seen and evaluated. Case discussed with her daughter as well as staff in the step-down unit. The patient is off pressors. Her blood pressure is marginal at around 95 to 110 systolic and heart rate in the 80 to 90 range. Sinus rhythm restored. Respiratory rate 25 to 20. She is afebrile. The patient has less shortness of breath and congestion. She remains on BiPAP support. The patient continues on IV antibiotics with white count slowly improved. OBJECTIVE: LUNGS: Coarse breath sounds. No wheezing. HEART: Regular rhythm and rate. Normal S1 and S2 with a fourth heart sound. ABDOMEN: Soft and nontender. No guarding. EXTREMITIES: No edema. LABORATORY DATA: White count 26 and hemoglobin 11. ABG, pH 7.4, pCO2 131, and pO2 81. Sodium 141, potassium 2.9, chloride 111, bicarb 21, BUN 7, and creatinine 0.5. Pro-natriuretic peptide is 13,000. IMPRESSION: 1. Sepsis with shock. 2. Hypokalemia. 3. Acute on chronic diastolic congestive heart failure. 4. Acute myocardial ischemia and possible non-ST elevation infarction. 5. Paroxysmal atrial fibrillation. PLAN: 1. Recheck troponin level. 2. Volume support. 3. Potassium replacement. 4. Wean off BiPAP. 5. Avoid pressors. 6. DVT and stress ulcer prophylaxes. 7. Consider aspirin and beta-hang once oral intake is resumed and blood pressure parameters have stabilized further. Milton Echevarria M.D. DR: CESILIA JOB#: [id number] CC:
[2017-04-12 05:56] LABS: MEAN CORPUSCULAR HEMOGLOBIN 30.9 PG (27.0-31.0); MEAN CORPUSCULAR HGB CONC 32.9 G/DL (32.0-36.0); MEAN CORPUSCULAR VOLUME 94 FL (80-99); MEAN PLATELET VOLUME 10.6 FL (6.5-10.1); PLATELET COUNT 33 K/UL (150-450); RED BLOOD COUNT 3.65 M/UL (4.20-5.40); RED CELL DISTRIBUTION WIDTH 12.7 % (11.6-14.8); WHITE BLOOD COUNT 14.6 K/UL (4.8-10.8)
[2017-04-12 06:17] LABS: ANION GAP 10 (5-15); CALCIUM 7.6 mg/dL (8.6-10.2); CARBON DIOXIDE 21 mEQ/L (20-30); CHLORIDE 111 mEQ/L (98-107); CREATININE 0.5 mg/dL (0.5-0.9); HEMOLYSIS 4; POTASSIUM 3.1 mEQ/L (3.4-4.9); SODIUM 142 mEQ/L (135-145)
[2017-04-12 06:22] LABS: TROPONIN I < 0.30 ng/mL (<=0.30)
--- NOTE | 2017-04-12 07:00 | Consultation ---
DATE OF CONSULTATION: 04/11/2017 HEMATOLOGY/ONCOLOGY CONSULTATION CONSULTING PHYSICIAN: Kishore Titus M.D. REQUESTING PHYSICIAN: Ja Damon M.D. REASON FOR CONSULTATION: Evaluation of leukocytosis, anemia, and thrombocytopenia. IDENTIFYING DATA: Dear Dr. Damon, The patient is a pleasant 87-year-old [place]ish-speaking female with past medical history, which is significant for history of respiratory failure, recent fever, shocked liver, Alzheimer's disease, and hypertension at this time presents to [facility]. She lives in halfway facility rehab unit and brought her into the ER with fever and hypertension. She is noted to have a fever of 101 degrees Fahrenheit. She does not provide any further history. The patient's daughter is in the room today, she was placed on BiPAP, given antibiotics and noticed to have worsening thrombocytopenia. Therefore, hematology service was consulted. PAST MEDICAL HISTORY: Dementia and hypertension. PAST SURGICAL HISTORY: Unknown. MEDICATIONS: Vancomycin and Zosyn in the ER. ALLERGIES: No known drug allergies. SOCIAL HISTORY: Lives in halfway facility. No alcohol, tobacco, or illicit drug use. REVIEW OF SYSTEMS: Constitutional: No fever, chills, or night sweats. Skin: No rashes, bumps, or itching. HEENT: No headache, hearing, or vision changes. Breasts: No lumps, pain, or discharge. Pulmonary: No cough, sputum, or shortness of breath. Cardiovascular: No chest pain, tightness, or palpitations. Gastrointestinal: No nausea, vomiting, or diarrhea. Genitourinary: No dysuria, frequency, or urgency. Musculoskeletal: No joint swelling, muscle pain, or trauma. PHYSICAL EXAMINATION: GENERAL: The patient is in no distress. VITAL SIGNS: Blood pressure 116/72, pulse oximetry 98% on nasal cannula, pulse 92, respiratory rate 12, and temperature 97.7 degrees Fahrenheit. PULMONARY: Decreased breath sounds. CARDIOVASCULAR: Regular rate. No S3 or S4. ABDOMEN: Soft, nontender and nondistended. EXTREMITIES: There is 1+ edema. LABORATORY AND DIAGNOSTIC DATA: White count 26,000, hemoglobin 11, hematocrit 33, and platelet count of 33,000 down from 45,000. Differentials most left shifted. ASSESSMENT AND PLAN: 1. Thrombocytopenia, which is concerning for disseminated intravascular coagulation secondary to septic shock with some gram-negative rods, infection, she is on double coverage. 2. Anemia secondary to chronic disease. 3. . 4. Leukocytosis secondary to sepsis and septic shock. 5. Shock liver, liver function tests are elevated. 6. Fever, she is on antibiotics per Infectious Diseases service. 7. Acute kidney injury. 8. . 9. Discussed with staff. Kishore Titus M.D. DR: DAWN JOB#: [id number] CC:
[2017-04-12] MEDS: Pantoprazole Inj IVP SCH (08:07)
--- NOTE | 2017-04-12 09:45 | Nephrology Progress Note ---
Assessment/Plan Problem List: (1) Septic shock (2) Fever (3) UTI (urinary tract infection) (4) Dementia (5) HTN (hypertension) (6) Sepsis (7) Hypotension Plan DNR/DNI status Continue current treatment plan Cardio and pulmo following Continue o2 therapy Monitor lytes, replace K Monitor counts, hematology following Abx per ID Monitor neuro status DVT prophylaxis with SCD Monitor intake and output - continue woo AM labs Subjective ROS Limited/Unobtainable: Yes Subjective In bed, eyes open, in no apparent distress. Objective Objective Last 24 Hour Vital Signs Date Time Temp Pulse Resp B/P Pulse Ox O2 Delivery O2 Flow Rate FiO2 04/12/17 08:00 97.4 90 21 128/77 96 Nasal Cannula 2.0 04/12/17 08:00 89 04/12/17 04:37 83 04/12/17 04:17 98.0 74 15 132/82 99 Nasal Cannula 04/12/17 04:00 98.1 74 15 114/67 99 Nasal Cannula 04/12/17 00:00 98.2 84 17 122/82 96 Nasal Cannula 04/11/17 23:53 83 04/11/17 20:00 98.1 91 18 114/67 98 Nasal Cannula 04/11/17 19:46 89 04/11/17 19:12 Nasal Cannula 2.0 28 04/11/17 16:00 97.2 83 20 118/65 96 Nasal Cannula 2.0 04/11/17 16:00 89 04/11/17 13:01 97.7 92 20 116/72 98 Nasal Cannula 2.0 04/11/17 11:57 98 04/11/17 11:55 98.1 94 30 104/67 100 Nasal Cannula 2.0 04/11/17 11:00 97 28 99/59 99 Nasal Cannula 2.0 04/11/17 10:00 96 25 115/70 99 Nasal Cannula 2.0 Intake and Output 04/11/17 04/12/17 19:00 07:00 Intake Total 750 ml 1605 ml Output Total 650 ml 700 ml Balance 100 ml 905 ml Intake IV Total 750 ml 1605 ml Output Urine Total 650 ml 700 ml # Bowel Movements 3 Laboratory Tests 04/11/17 16:35: Hepatitis A IgM Antibody [Pending], Hepatitis B Surface Antigen [Pending], Hepatitis B Core IgM Antibody [Pending], Hepatitis C Antibody [Pending] 04/11/17 21:43: Sodium Level 142, Potassium Level 3.4, Chloride Level 112H, Carbon Dioxide Level 20, Anion Gap 10, Blood Urea Nitrogen 6L, Creatinine 0.5, Estimat Glomerular Filtration Rate , Glucose Level 102, Calcium Level 7.7L, Magnesium Level 1.5L, Total Bilirubin 1.0, Aspartate Amino Transf (AST/SGOT) 19, Alanine Aminotransferase (ALT/SGPT) 20, Alkaline Phosphatase 76, Troponin I < 0.30, Total Protein 4.8L, Albumin 2.4L, Globulin 2.4, Albumin/Globulin Ratio 1.0 04/12/17 05:00: Sodium Level 142, Potassium Level 3.1L, Chloride Level 111H, Carbon Dioxide Level 21, Anion Gap 10, Blood Urea Nitrogen 7, Creatinine 0.5, Estimat Glomerular Filtration Rate , Glucose Level 108H, Calcium Level 7.6L, Troponin I < 0.30, White Blood Count 14.6H, Red Blood Count 3.65L, Hemoglobin 11.3L, Hematocrit 34.4L, Mean Corpuscular Volume 94, Mean Corpuscular Hemoglobin 30.9, Mean Corpuscular Hemoglobin Concent 32.9, Red Cell Distribution Width 12.7, Platelet Count 33L, Mean Platelet Volume 10.6H, Neutrophils (%) (Auto) , Lymphocytes (%) (Auto) , Monocytes (%) (Auto) , Eosinophils (%) (Auto) , Basophils (%) (Auto) , Pro-B-Type Natriuretic Peptide 10932E Height (Feet): 5 Height (Inches): 4.00 Weight (Pounds): 125 General Appearance: no apparent distress Neck: normal alignment, supple Cardiovascular: normal rate, regular rhythm, no JVD Respiratory/Chest: decreased breath sounds Abdomen: non tender, soft, other - PEG Genitourinary/Rectal: other - woo Extremities: non-tender, normal inspection Neurologic: motor weakness RIKI ZHANG Apr 12, 2017 09:45
[2017-04-12] MEDS: KCl 10% 40mEq/30ml liquid NG SCH ×2 (09:50→18:14)
--- NOTE | 2017-04-12 10:08 | Pulmonology Progress Note ---
Assessment/Plan Assessment/Plan IMPRESSION: 1. Urinary tract infection. 2. Septic, septic shock. 3. Do Not Intubate. 4. Respiratory failure on BiPAP. Resolved now 5. Dementia. DISCUSSION: Broad-spectrum antibiotics. off Levophed, pressors. Off BiPAP. I will follow as immigration specialist; labs in AM Subjective Interval Events: Much better; no new problems; transferred to [facility] Constitutional: Reports: no symptoms HEENT: Repors: no symptoms Respiratory: Reports: no symptoms Cardiovascular: Reports: no symptoms Gastrointestinal/Abdominal: Reports: no symptoms Genitourinary: Reports: no symptoms Allergies: Coded Allergies: No Known Allergies (Unverified , 04/09/17) Objective Last 24 Hour Vital Signs Date Time Temp Pulse Resp B/P Pulse Ox O2 Delivery O2 Flow Rate FiO2 04/12/17 08:00 97.4 90 21 128/77 96 Nasal Cannula 2.0 04/12/17 08:00 89 04/12/17 04:37 83 04/12/17 04:17 98.0 74 15 132/82 99 Nasal Cannula 04/12/17 04:00 98.1 74 15 114/67 99 Nasal Cannula 04/12/17 00:00 98.2 84 17 122/82 96 Nasal Cannula 04/11/17 23:53 83 04/11/17 20:00 98.1 91 18 114/67 98 Nasal Cannula 04/11/17 19:46 89 04/11/17 19:12 Nasal Cannula 2.0 28 04/11/17 16:00 97.2 83 20 118/65 96 Nasal Cannula 2.0 04/11/17 16:00 89 04/11/17 13:01 97.7 92 20 116/72 98 Nasal Cannula 2.0 04/11/17 11:57 98 04/11/17 11:55 98.1 94 30 104/67 100 Nasal Cannula 2.0 04/11/17 11:00 97 28 99/59 99 Nasal Cannula 2.0 Intake and Output 04/11/17 04/12/17 19:00 07:00 Intake Total 750 ml 1605 ml Output Total 650 ml 700 ml Balance 100 ml 905 ml Intake IV Total 750 ml 1605 ml Output Urine Total 650 ml 700 ml # Bowel Movements 3 General Appearance: no acute distress HEENT: normocephalic Respiratory/Chest: chest wall non-tender, lungs clear Cardiovascular: normal peripheral pulses, normal rate Abdomen: normal bowel sounds, soft, non tender Microbiology Date/Time Source Procedure Growth Status 04/09/17 11:30 Blood Blood Culture - Preliminary Gram Negative Bacillus 1 Resulted 04/09/17 11:20 Blood Blood Culture - Preliminary Gram Negative Bacillus 1 Resulted Laboratory Tests 04/11/17 16:35: Hepatitis A IgM Antibody [Pending], Hepatitis B Surface Antigen [Pending], Hepatitis B Core IgM Antibody [Pending], Hepatitis C Antibody [Pending] 04/11/17 21:43: Sodium Level 142, Potassium Level 3.4, Chloride Level 112H, Carbon Dioxide Level 20, Anion Gap 10, Blood Urea Nitrogen 6L, Creatinine 0.5, Estimat Glomerular Filtration Rate , Glucose Level 102, Calcium Level 7.7L, Magnesium Level 1.5L, Total Bilirubin 1.0, Aspartate Amino Transf (AST/SGOT) 19, Alanine Aminotransferase (ALT/SGPT) 20, Alkaline Phosphatase 76, Troponin I < 0.30, Total Protein 4.8L, Albumin 2.4L, Globulin 2.4, Albumin/Globulin Ratio 1.0 04/12/17 05:00: Sodium Level 142, Potassium Level 3.1L, Chloride Level 111H, Carbon Dioxide Level 21, Anion Gap 10, Blood Urea Nitrogen 7, Creatinine 0.5, Estimat Glomerular Filtration Rate , Glucose Level 108H, Calcium Level 7.6L, Troponin I < 0.30, White Blood Count 14.6H, Red Blood Count 3.65L, Hemoglobin 11.3L, Hematocrit 34.4L, Mean Corpuscular Volume 94, Mean Corpuscular Hemoglobin 30.9, Mean Corpuscular Hemoglobin Concent 32.9, Red Cell Distribution Width 12.7, Platelet Count 33L, Mean Platelet Volume 10.6H, Neutrophils (%) (Auto) , Lymphocytes (%) (Auto) , Monocytes (%) (Auto) , Eosinophils (%) (Auto) , Basophils (%) (Auto) , Pro-B-Type Natriuretic Peptide [id number] Current Medications Medications (Trade) Dose Ordered Sig/Yissel Route PRN Reason Start Time Stop Time Status Last Admin Dose Admin Acetaminophen (Tylenol) 650 mg Q4H PRN ORAL Mild Pain (Pain Scale 1-3) 04/11/17 15:30 05/11/17 15:29 Amikacin Protocol (Amikacin pharmacy to dose) 1 ea DAILY PRN MISC Per rx protocol 04/11/17 15:30 05/11/17 15:29 Amikacin Sulfate 750 mg/Sodium Chloride 113 ml @ 113 mls/hr Q24H IV 04/12/17 12:00 04/19/17 11:59 Chlorhexidine Gluconate (Chandrika-Hex 2%) 1 applic QHS TOPIC 04/11/17 21:00 05/11/17 20:59 04/11/17 21:07 Dextrose (Dextrose 50%) STAT PRN IV Hypoglycemia 04/11/17 15:30 05/11/17 15:29 Magnesium Sulfate (Magnesium Sulfate 1gm/100ml) 100 ml @ 100 mls/hr Q1H IVPB 04/12/17 09:45 04/12/17 11:44 04/12/17 09:50 Meropenem 1 gm/ Sodium Chloride 110 ml @ 220 mls/hr Q12HR@1100,2300 IVPB 04/11/17 23:00 04/15/17 22:59 04/11/17 23:16 Pantoprazole (Protonix) 40 mg DAILY IVP 04/12/17 09:00 05/12/17 08:59 04/12/17 08:07 Potassium Chloride 40 meq 40 meq TWICE A DAY NG 04/12/17 09:45 04/12/17 20:00 04/12/17 09:50 Sodium Chloride (Sodium Chloride 1000ml bag) 1,000 ml @ 150 mls/hr Q6H40M IVLG 04/11/17 15:30 05/11/17 15:29 04/12/17 03:32 Edd Goins MD Apr 12, 2017 10:08
[2017-04-12] MEDS: Meropenem 1 GM in NS 110 ML IVPB SCH ×2 (11:01→22:43)
[2017-04-12] MEDS ORDERED: Amikacin 750 MG in NS 110 ML IV SCH (12:00)
--- NOTE | 2017-04-12 12:00 | Progress Note ---
DATE: 04/12/2017 CARDIOLOGY PROGRESS NOTE SUBJECTIVE: The patient remains on BiPAP support. Monitored rhythm sinus with atrial ectopy. OBJECTIVE: VITAL SIGNS: Blood pressure 128/77, pulse 90, and respirations 21. Afebrile. LUNGS: Coarse breath sounds. HEART: Regular rhythm and rate. Normal S1 and S2. ABDOMEN: Soft. No edema. LABORATORY DATA: White count down to 14.6, hemoglobin 11.3. Potassium 3.1, BUN 7, and creatinine 0.5. Troponin negative. Magnesium level yesterday was 1.5. Beta natriuretic peptide today is 13,000. IMPRESSION: 1. Acute on chronic diastolic congestive heart failure. 2. Hypokalemia. 3. Hypomagnesemia. 4. Acute respiratory insufficiency. 5. sepsis with recovered shock. 6. Gram-negative bacteremia. PLAN: 1. Replace potassium. 2. Additional diuresis. 3. Antimicrobials. 4. Respiratory hygiene. 5. Weaning off BiPAP. Milton Echevarria M.D. DR: RONNA JOB#: [id number] CC:
--- NOTE | 2017-04-12 14:17 | Cardiac Electrophysiology PN ---
Assessment/Plan Assessment/Plan 1. S/P Septic Shock already on broad-spectrum intravenous antibiotics. Off pressors now. 2. Paroxysmal atrial fibrillation. Currently in sinus rhythm but was in atrial fib earlier today. 3. Respiratory failure, off BiPAP. The patient is Do Not Intubate status. 4. Do Not Resuscitate and Do Not Intubate. 5. Dysphagia, status post percutaneous endoscopic gastrostomy placement. 6. Advanced dementia. Alex RN Subjective Subjective On tele. Off BIPAP. Nonverbal.No arrhythmias on tele except for brief episode of atrial fib. Objective Last 24 Hour Vital Signs Date Time Temp Pulse Resp B/P Pulse Ox O2 Delivery O2 Flow Rate FiO2 04/12/17 12:00 97.8 96 19 125/85 99 Nasal Cannula 2.0 04/12/17 12:00 89 04/12/17 08:00 97.4 90 21 128/77 96 Nasal Cannula 2.0 04/12/17 08:00 89 04/12/17 04:37 83 04/12/17 04:17 98.0 74 15 132/82 99 Nasal Cannula 04/12/17 04:00 98.1 74 15 114/67 99 Nasal Cannula 04/12/17 00:00 98.2 84 17 122/82 96 Nasal Cannula 04/11/17 23:53 83 04/11/17 20:00 98.1 91 18 114/67 98 Nasal Cannula 04/11/17 19:46 89 04/11/17 19:12 Nasal Cannula 2.0 28 04/11/17 16:00 97.2 83 20 118/65 96 Nasal Cannula 2.0 04/11/17 16:00 89 Intake and Output 04/11/17 04/12/17 19:00 07:00 Intake Total 750 ml 1605 ml Output Total 650 ml 700 ml Balance 100 ml 905 ml Intake IV Total 750 ml 1605 ml Output Urine Total 650 ml 700 ml # Bowel Movements 3 Laboratory Tests Test 04/11/17 16:35 04/11/17 21:43 04/12/17 05:00 Hepatitis A IgM Antibody Pending Hepatitis B Surface Antigen Pending Hepatitis B Core IgM Antibody Pending Hepatitis C Antibody Pending Sodium Level 142 mEQ/L (135-145) 142 mEQ/L (135-145) Potassium Level 3.4 mEQ/L (3.4-4.9) 3.1 mEQ/L (3.4-4.9) L Chloride Level 112 mEQ/L (98-107) H 111 mEQ/L (98-107) H Carbon Dioxide Level 20 mEQ/L (20-30) 21 mEQ/L (20-30) Anion Gap 10 (5-15) 10 (5-15) Blood Urea Nitrogen 6 mg/dL (7-23) L 7 mg/dL (7-23) Creatinine 0.5 mg/dL (0.5-0.9) 0.5 mg/dL (0.5-0.9) Estimat Glomerular Filtration Rate mL/min (>60) mL/min (>60) Glucose Level 102 mg/dL (74-106) 108 mg/dL (74-106) H Calcium Level 7.7 mg/dL (8.6-10.2) L 7.6 mg/dL (8.6-10.2) L Magnesium Level 1.5 mg/dL (1.7-2.5) L Total Bilirubin 1.0 mg/dL (0.0-1.2) Aspartate Amino Transf (AST/SGOT) 19 U/L (5-40) Alanine Aminotransferase (ALT/SGPT) 20 U/L (3-33) Alkaline Phosphatase 76 U/L (35-104) Troponin I < 0.30 ng/mL (<=0.30) < 0.30 ng/mL (<=0.30) Total Protein 4.8 g/dL (6.6-8.7) L Albumin 2.4 g/dL (3.5-5.2) L Globulin 2.4 g/dL Albumin/Globulin Ratio 1.0 (1.0-2.7) White Blood Count 14.6 K/UL (4.8-10.8) H Red Blood Count 3.65 M/UL (4.20-5.40) L Hemoglobin 11.3 G/DL (12.0-16.0) L Hematocrit 34.4 % (37.0-47.0) L Mean Corpuscular Volume 94 FL (80-99) Mean Corpuscular Hemoglobin 30.9 PG (27.0-31.0) Mean Corpuscular Hemoglobin Concent 32.9 G/DL (32.0-36.0) Red Cell Distribution Width 12.7 % (11.6-14.8) Platelet Count 33 K/UL (150-450) L Mean Platelet Volume 10.6 FL (6.5-10.1) H Neutrophils (%) (Auto) % (45.0-75.0) Lymphocytes (%) (Auto) % (20.0-45.0) Monocytes (%) (Auto) % (1.0-10.0) Eosinophils (%) (Auto) % (0.0-3.0) Basophils (%) (Auto) % (0.0-2.0) Pro-B-Type Natriuretic Peptide 38546 pg/mL (0-450) H Objective HEAD AND NECK: No JVD. LUNGS: Decreased breath sounds. CARDIOVASCULAR: Shows regular S1 and S2 with no gallop. ABDOMEN: Soft. Status post G-tube. EXTREMITIES: No pitting edema. JEET MONTE Apr 12, 2017 14:17
--- NOTE | 2017-04-12 15:52 | Infectious Diseases Prog Note ---
Assessment/Plan Problems: (1) Septic shock Assessment & Plan: with refractory hypotension, due to gram negative rods, now improving on meropenem, and amikacin for double coverage , monitor culture (2) UTI (urinary tract infection) Assessment & Plan: with proteus mirabillis , on meropenem and amikacin, await blood culture results (3) Acute respiratory failure Assessment & Plan: due to the above, improving, S/P BIPAP, pulmonary is following, monitor ABG, and CXR (4) Shock liver Assessment & Plan: due to the above, monitor LFT, will screen for hepatitis (5) Fever Assessment & Plan: resolved, due to sepsis, continue tylenol and cooling measures (6) SHAYNE (acute kidney injury) Assessment & Plan: improving, due to septic shock and hypotension, continue hydration , monitor UOP, renal is following Subjective ROS Limited/Unobtainable: Yes Allergies: Coded Allergies: No Known Allergies (Unverified , 04/09/17) Subjective she was awake and alert, open eyes spontaneously, nonverbal, not in distress, afebrile. Objective Vital Signs Last 24 Hour Vital Signs Date Time Temp Pulse Resp B/P Pulse Ox O2 Delivery O2 Flow Rate FiO2 04/12/17 12:00 97.8 96 19 125/85 99 Nasal Cannula 2.0 04/12/17 12:00 89 04/12/17 08:00 97.4 90 21 128/77 96 Nasal Cannula 2.0 04/12/17 08:00 89 04/12/17 04:37 83 04/12/17 04:17 98.0 74 15 132/82 99 Nasal Cannula 04/12/17 04:00 98.1 74 15 114/67 99 Nasal Cannula 04/12/17 00:00 98.2 84 17 122/82 96 Nasal Cannula 04/11/17 23:53 83 04/11/17 20:00 98.1 91 18 114/67 98 Nasal Cannula 04/11/17 19:46 89 04/11/17 19:12 Nasal Cannula 2.0 28 04/11/17 16:00 97.2 83 20 118/65 96 Nasal Cannula 2.0 04/11/17 16:00 89 Height (Feet): 5 Height (Inches): 4.00 Weight (Pounds): 125 General Appearance: WD/WN, no acute distress HEENT: normocephalic, atraumatic, anicteric, mucous membranes moist, supple, no JVD Respiratory/Chest: chest wall non-tender, lungs clear, normal breath sounds, no respiratory distress, no accessory muscle use Cardiovascular: normal peripheral pulses, normal rate, regular rhythm, no gallop/murmur, no JVD Abdomen: normal bowel sounds, soft, non tender, no organomegaly, non distended , no mass Extremities: no cyanosis, no clubbing Skin: no rash, no lesions Neurologic/Psychiatric: alert Laboratory Tests Test 04/11/17 16:35 04/11/17 21:43 04/12/17 05:00 Hepatitis A IgM Antibody Pending Hepatitis B Surface Antigen Pending Hepatitis B Core IgM Antibody Pending Hepatitis C Antibody Pending Sodium Level 142 mEQ/L (135-145) 142 mEQ/L (135-145) Potassium Level 3.4 mEQ/L (3.4-4.9) 3.1 mEQ/L (3.4-4.9) L Chloride Level 112 mEQ/L (98-107) H 111 mEQ/L (98-107) H Carbon Dioxide Level 20 mEQ/L (20-30) 21 mEQ/L (20-30) Anion Gap 10 (5-15) 10 (5-15) Blood Urea Nitrogen 6 mg/dL (7-23) L 7 mg/dL (7-23) Creatinine 0.5 mg/dL (0.5-0.9) 0.5 mg/dL (0.5-0.9) Estimat Glomerular Filtration Rate mL/min (>60) mL/min (>60) Glucose Level 102 mg/dL (74-106) 108 mg/dL (74-106) H Calcium Level 7.7 mg/dL (8.6-10.2) L 7.6 mg/dL (8.6-10.2) L Magnesium Level 1.5 mg/dL (1.7-2.5) L Total Bilirubin 1.0 mg/dL (0.0-1.2) Aspartate Amino Transf (AST/SGOT) 19 U/L (5-40) Alanine Aminotransferase (ALT/SGPT) 20 U/L (3-33) Alkaline Phosphatase 76 U/L (35-104) Troponin I < 0.30 ng/mL (<=0.30) < 0.30 ng/mL (<=0.30) Total Protein 4.8 g/dL (6.6-8.7) L Albumin 2.4 g/dL (3.5-5.2) L Globulin 2.4 g/dL Albumin/Globulin Ratio 1.0 (1.0-2.7) White Blood Count 14.6 K/UL (4.8-10.8) H Red Blood Count 3.65 M/UL (4.20-5.40) L Hemoglobin 11.3 G/DL (12.0-16.0) L Hematocrit 34.4 % (37.0-47.0) L Mean Corpuscular Volume 94 FL (80-99) Mean Corpuscular Hemoglobin 30.9 PG (27.0-31.0) Mean Corpuscular Hemoglobin Concent 32.9 G/DL (32.0-36.0) Red Cell Distribution Width 12.7 % (11.6-14.8) Platelet Count 33 K/UL (150-450) L Mean Platelet Volume 10.6 FL (6.5-10.1) H Neutrophils (%) (Auto) % (45.0-75.0) Lymphocytes (%) (Auto) % (20.0-45.0) Monocytes (%) (Auto) % (1.0-10.0) Eosinophils (%) (Auto) % (0.0-3.0) Basophils (%) (Auto) % (0.0-2.0) Pro-B-Type Natriuretic Peptide 82751 pg/mL (0-450) H Current Medications Medications (Trade) Dose Ordered Sig/Yissel Route PRN Reason Start Time Stop Time Status Last Admin Dose Admin Acetaminophen (Tylenol) 650 mg Q4H PRN ORAL Mild Pain (Pain Scale 1-3) 04/11/17 15:30 05/11/17 15:29 Amikacin Protocol (Amikacin pharmacy to dose) 1 ea DAILY PRN MISC Per rx protocol 04/11/17 15:30 05/11/17 15:29 Amikacin Sulfate 750 mg/Sodium Chloride 113 ml @ 113 mls/hr Q24H IV 04/12/17 12:00 04/19/17 11:59 04/12/17 12:00 Chlorhexidine Gluconate (Chandrika-Hex 2%) 1 applic QHS TOPIC 04/11/17 21:00 05/11/17 20:59 04/11/17 21:07 Dextrose (Dextrose 50%) STAT PRN IV Hypoglycemia 04/11/17 15:30 05/11/17 15:29 Meropenem 1 gm/ Sodium Chloride 110 ml @ 220 mls/hr Q12HR@1100,2300 IVPB 04/11/17 23:00 04/15/17 22:59 04/12/17 11:01 Pantoprazole (Protonix) 40 mg DAILY IVP 04/12/17 09:00 05/12/17 08:59 04/12/17 08:07 Potassium Chloride (KCl 10% 40mEq Oral solution) 40 meq TWICE A DAY NG 04/12/17 09:45 04/12/17 20:00 04/12/17 09:50 Sodium Chloride (Sodium Chloride 1000ml bag) 1,000 ml @ 150 mls/hr Q6H40M IVLG 04/11/17 15:30 05/11/17 15:29 04/12/17 13:37 Alberto Philip M.D. Apr 12, 2017 15:52
[2017-04-12] MEDS: Dyna-Hex 2% Top Sol 8oz TOPIC SCH (21:25)
[2017-04-13] VITALS (7 sets, daily range): BP systolic 121–132; BP diastolic 69–89
[2017-04-13] MEDS: Pantoprazole Inj IVP SCH (09:50)
--- NOTE | 2017-04-13 09:56 | Pulmonology Progress Note ---
Assessment/Plan Assessment/Plan IMPRESSION: 1. Urinary tract infection. 2. Septic, septic shock. Resolved 3. Do Not Intubate. 4. Respiratory failure on BiPAP. Resolved now 5. Dementia. 6. Pulm edema DISCUSSION: Broad-spectrum antibiotics. off Levophed, pressors. Off BiPAP. 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; labs in AM Suggest diuresis Check CXR AM Subjective Interval Events: Seen in tele; saturating well on 2L/min nasal o2; CXR shows puilm edema Constitutional: Reports: no symptoms HEENT: Repors: no symptoms Respiratory: Reports: no symptoms Cardiovascular: Reports: no symptoms Gastrointestinal/Abdominal: Reports: no symptoms Genitourinary: Reports: no symptoms Allergies: Coded Allergies: No Known Allergies (Unverified , 04/09/17) Objective Last 24 Hour Vital Signs Date Time Temp Pulse Resp B/P Pulse Ox O2 Delivery O2 Flow Rate FiO2 04/13/17 08:00 97.3 83 18 130/77 100 Nasal Cannula 2.0 04/13/17 07:45 Nasal Cannula 2.0 28 04/13/17 07:45 96 Nasal Cannula 2.0 28 04/13/17 04:00 97.5 85 20 121/74 96 Nasal Cannula 2.0 04/13/17 03:45 83 04/13/17 00:00 97.9 90 21 129/83 96 Nasal Cannula 2.0 04/12/17 23:36 86 04/12/17 21:58 Nasal Cannula 2.0 28 04/12/17 20:00 97.4 94 20 125/81 93 Room Air 04/12/17 19:03 88 04/12/17 16:00 94 04/12/17 16:00 98.1 88 21 118/78 98 Nasal Cannula 2.0 04/12/17 12:00 97.8 96 19 125/85 99 Nasal Cannula 2.0 04/12/17 12:00 89 Intake and Output 04/12/17 04/13/17 19:00 07:00 Intake Total 2398 ml 1783 ml Output Total 2100 ml 1425 ml Balance 298 ml 358 ml Intake Free Water 150 ml IV Total 1773 ml 1783 ml Tube Feeding 475 ml Output Urine Total 2100 ml 1425 ml # Bowel Movements 1 General Appearance: no acute distress HEENT: normocephalic Respiratory/Chest: no respiratory distress, decreased breath sounds Cardiovascular: normal peripheral pulses, normal rate Abdomen: normal bowel sounds, soft, non tender Current Medications Medications (Trade) Dose Ordered Sig/Yissel Route PRN Reason Start Time Stop Time Status Last Admin Dose Admin Acetaminophen (Tylenol) 650 mg Q4H PRN ORAL Mild Pain (Pain Scale 1-3) 04/11/17 15:30 05/11/17 15:29 Amikacin Protocol (Amikacin pharmacy to dose) 1 ea DAILY PRN MISC Per rx protocol 04/11/17 15:30 05/11/17 15:29 Amikacin Sulfate 750 mg/Sodium Chloride 113 ml @ 113 mls/hr Q24H IV 04/12/17 12:00 04/19/17 11:59 04/12/17 12:00 Chlorhexidine Gluconate (Chandrika-Hex 2%) 1 applic QHS TOPIC 04/11/17 21:00 05/11/17 20:59 04/12/17 21:25 Dextrose (Dextrose 50%) STAT PRN IV Hypoglycemia 04/11/17 15:30 05/11/17 15:29 Meropenem 1 gm/ Sodium Chloride 110 ml @ 220 mls/hr Q12HR@1100,2300 IVPB 04/11/17 23:00 04/15/17 22:59 04/12/17 22:43 Pantoprazole (Protonix) 40 mg DAILY IVP 04/12/17 09:00 05/12/17 08:59 04/13/17 09:50 Sodium Chloride (Sodium Chloride 1000ml bag) 1,000 ml @ 150 mls/hr Q6H40M IVLG 04/11/17 15:30 05/11/17 15:29 04/13/17 09:34 Edd Goins MD Apr 13, 2017 09:56
[2017-04-13 10:33] LABS: ANION GAP 8 (5-15); CALCIUM 7.5 mg/dL (8.6-10.2); CARBON DIOXIDE 25 mEQ/L (20-30); CHLORIDE 111 mEQ/L (98-107); CREATININE 0.4 mg/dL (0.5-0.9); HEMOLYSIS 6; POTASSIUM 3.1 mEQ/L (3.4-4.9); SODIUM 144 mEQ/L (135-145)
--- NOTE | 2017-04-13 10:51 | Infectious Diseases Prog Note ---
Assessment/Plan Problems: (1) Septic shock Assessment & Plan: due to proteus mirabilis and Morganella morgagnii , improved on meropenem, and amikacin , kitty switch to ceftriaxon to finish her course of therapy for two weeks, will repeat blood culture to confirm clearance (2) UTI (urinary tract infection) Assessment & Plan: with proteus mirabillis , on meropenem and amikacin, will switch to ceftriaxon to finish her course (3) Acute respiratory failure Assessment & Plan: due to the above, improving, S/P BIPAP, pulmonary is following, monitor ABG, and CXR (4) Shock liver Assessment & Plan: improved, due to the above, monitor LFT, will screen for hepatitis (5) Fever Assessment & Plan: resolved, due to sepsis, continue tylenol and cooling measures (6) SHAYNE (acute kidney injury) Assessment & Plan: improving, due to septic shock and hypotension, continue hydration , monitor UOP, renal is following Subjective ROS Limited/Unobtainable: Yes Allergies: Coded Allergies: No Known Allergies (Unverified , 04/09/17) Subjective she was awake and alert, open eyes spontaneously, nonverbal, not in distress, afebrile. Objective Vital Signs Last 24 Hour Vital Signs Date Time Temp Pulse Resp B/P Pulse Ox O2 Delivery O2 Flow Rate FiO2 04/13/17 08:00 82 04/13/17 08:00 97.3 83 18 130/77 100 Nasal Cannula 2.0 04/13/17 07:45 Nasal Cannula 2.0 28 04/13/17 07:45 96 Nasal Cannula 2.0 04/13/17 04:00 97.5 85 20 121/74 96 Nasal Cannula 2.0 04/13/17 03:45 83 04/13/17 00:00 97.9 90 21 129/83 96 Nasal Cannula 2.0 04/12/17 23:36 86 04/12/17 21:58 Nasal Cannula 2.0 28 04/12/17 20:00 97.4 94 20 125/81 93 Room Air 04/12/17 19:03 88 04/12/17 16:00 94 04/12/17 16:00 98.1 88 21 118/78 98 Nasal Cannula 2.0 04/12/17 12:00 97.8 96 19 125/85 99 Nasal Cannula 2.0 04/12/17 12:00 89 Height (Feet): 5 Height (Inches): 4.00 Weight (Pounds): 125 General Appearance: WD/WN, no acute distress HEENT: normocephalic, atraumatic, anicteric, mucous membranes moist Respiratory/Chest: chest wall non-tender, lungs clear, normal breath sounds, no respiratory distress, no accessory muscle use Cardiovascular: normal peripheral pulses, normal rate, regular rhythm, no gallop/murmur Abdomen: normal bowel sounds, soft, non tender, no organomegaly, non distended , no mass, no scars Extremities: no cyanosis, no clubbing Skin: no rash, no lesions Neurologic/Psychiatric: alert Lymphatic: no neck adenopathy Laboratory Tests Test 04/13/17 10:00 04/13/17 10:30 Sodium Level 144 mEQ/L (135-145) Potassium Level 3.1 mEQ/L (3.4-4.9) L Chloride Level 111 mEQ/L (98-107) H Carbon Dioxide Level 25 mEQ/L (20-30) Anion Gap 8 (5-15) Blood Urea Nitrogen 10 mg/dL (7-23) Creatinine 0.4 mg/dL (0.5-0.9) L Estimat Glomerular Filtration Rate mL/min (>60) Glucose Level 116 mg/dL (74-106) H Calcium Level 7.5 mg/dL (8.6-10.2) L Amikacin Level Trough 1.2 ug/mL (10.0-15.0) L White Blood Count Pending Red Blood Count Pending Hemoglobin Pending Hematocrit Pending Mean Corpuscular Volume Pending Mean Corpuscular Hemoglobin Pending Mean Corpuscular Hemoglobin Concent Pending Red Cell Distribution Width Pending Platelet Count Pending Mean Platelet Volume Pending Neutrophils (%) (Auto) Pending Lymphocytes (%) (Auto) Pending Monocytes (%) (Auto) Pending Eosinophils (%) (Auto) Pending Basophils (%) (Auto) Pending Current Medications Medications (Trade) Dose Ordered Sig/Yissel Route PRN Reason Start Time Stop Time Status Last Admin Dose Admin Acetaminophen (Tylenol) 650 mg Q4H PRN ORAL Mild Pain (Pain Scale 1-3) 04/11/17 15:30 05/11/17 15:29 Amikacin Protocol (Amikacin pharmacy to dose) 1 ea DAILY PRN MISC Per rx protocol 04/11/17 15:30 05/11/17 15:29 Amikacin Sulfate 750 mg/Sodium Chloride 113 ml @ 113 mls/hr Q24H IV 04/12/17 12:00 04/19/17 11:59 04/12/17 12:00 Chlorhexidine Gluconate (Chandrika-Hex 2%) 1 applic QHS TOPIC 04/11/17 21:00 05/11/17 20:59 04/12/17 21:25 Dextrose (Dextrose 50%) STAT PRN IV Hypoglycemia 04/11/17 15:30 05/11/17 15:29 Meropenem 1 gm/ Sodium Chloride 110 ml @ 220 mls/hr Q12HR@1100,2300 IVPB 04/11/17 23:00 04/15/17 22:59 04/12/17 22:43 Pantoprazole (Protonix) 40 mg DAILY IVP 04/12/17 09:00 05/12/17 08:59 04/13/17 09:50 Sodium Chloride (Sodium Chloride 1000ml bag) 1,000 ml @ 150 mls/hr Q6H40M IVLG 04/11/17 15:30 05/11/17 15:29 04/13/17 09:34 Alberto Philip M.D. Apr 13, 2017 10:51
[2017-04-13 11:04] LABS: MEAN CORPUSCULAR HEMOGLOBIN 30.3 PG (27.0-31.0); MEAN CORPUSCULAR HGB CONC 32.2 G/DL (32.0-36.0); MEAN CORPUSCULAR VOLUME 94 FL (80-99); MEAN PLATELET VOLUME 10.1 FL (6.5-10.1); PLATELET COUNT 34 K/UL (150-450); RED CELL DISTRIBUTION WIDTH 12.4 % (11.6-14.8); WHITE BLOOD COUNT 6.4 K/UL (4.8-10.8)
[2017-04-13] MEDS ORDERED: NS 275ml ONE ×2 (11:18→11:19)
[2017-04-13] MEDS ORDERED: Tubing IV Secondary IV ONE ×2 (11:18→11:19)
[2017-04-13 11:27] LABS: BAND NEUTROPHILS % (MANUAL) 0 % (0-8); BASOPHILS % (MANUAL) 0 % (0-2); EOSINOPHILS % (MANUAL) 3 % (0-3); HYPOCHROMASIA 1+; LYMPHOCYTES % (MANUAL) 18 % (20-45); NEUTROPHILS % (MANUAL) 72 % (45-75); PLATELET ESTIMATE DECREASED; PLATELET MORPHOLOGY NORMAL; TOTAL CELLS COUNTED 100
[2017-04-13] MEDS: cefTRIAXone 2 GM in D5W 110 ML IVPB SCH (11:50)
--- NOTE | 2017-04-13 13:33 | Nephrology Progress Note ---
Assessment/Plan Problem List: (1) Septic shock (2) Fever (3) UTI (urinary tract infection) (4) Dementia (5) HTN (hypertension) (6) Sepsis (7) Hypotension Plan DNR/DNI status Continue current treatment plan Cardio and pulmo following Continue o2 therapy Monitor lytes, replace K Monitor counts, hematology following Abx per ID Monitor neuro status DVT prophylaxis with SCD Monitor intake and output - continue woo AM labs Subjective Subjective In bed, awake, non verbal, in no apparent distress. Objective Objective Last 24 Hour Vital Signs Date Time Temp Pulse Resp B/P Pulse Ox O2 Delivery O2 Flow Rate FiO2 04/13/17 12:00 97.8 82 18 127/69 100 Nasal Cannula 2.0 04/13/17 08:00 82 04/13/17 08:00 97.3 83 18 130/77 100 Nasal Cannula 2.0 04/13/17 07:45 Nasal Cannula 2.0 28 04/13/17 07:45 96 Nasal Cannula 2.0 28 04/13/17 04:00 97.5 85 20 121/74 96 Nasal Cannula 2.0 04/13/17 03:45 83 04/13/17 00:00 97.9 90 21 129/83 96 Nasal Cannula 2.0 04/12/17 23:36 86 04/12/17 21:58 Nasal Cannula 2.0 28 04/12/17 20:00 97.4 94 20 125/81 93 Room Air 04/12/17 19:03 88 04/12/17 16:00 94 04/12/17 16:00 98.1 88 21 118/78 98 Nasal Cannula 2.0 Intake and Output 04/12/17 04/13/17 19:00 07:00 Intake Total 2398 ml 1783 ml Output Total 2100 ml 1425 ml Balance 298 ml 358 ml Intake Free Water 150 ml IV Total 1773 ml 1783 ml Tube Feeding 475 ml Output Urine Total 2100 ml 1425 ml # Bowel Movements 1 Laboratory Tests 04/13/17 10:00: Sodium Level 144, Potassium Level 3.1L, Chloride Level 111H, Carbon Dioxide Level 25, Anion Gap 8, Blood Urea Nitrogen 10, Creatinine 0.4L, Estimat Glomerular Filtration Rate , Glucose Level 116H, Calcium Level 7.5L, Amikacin Level Trough 1.2L 04/13/17 10:30: White Blood Count 6.4#, Red Blood Count 3.50L, Hemoglobin 10.6L, Hematocrit 32.8L, Mean Corpuscular Volume 94, Mean Corpuscular Hemoglobin 30.3, Mean Corpuscular Hemoglobin Concent 32.2, Red Cell Distribution Width 12.4, Platelet Count 34L, Mean Platelet Volume 10.1, Neutrophils (%) (Auto) , Lymphocytes (%) ( Auto) , Monocytes (%) (Auto) , Eosinophils (%) (Auto) , Basophils (%) (Auto) , Differential Total Cells Counted 100, Neutrophils % (Manual) 72, Lymphocytes % ( Manual) 18L, Monocytes % (Manual) 7, Eosinophils % (Manual) 3, Basophils % ( Manual) 0, Band Neutrophils 0, Platelet Estimate DecreasedL, Platelet Morphology Normal, Hypochromasia 1+ Height (Feet): 5 Height (Inches): 4.00 Weight (Pounds): 125 General Appearance: no apparent distress Neck: non-tender RIKI ZHANG Apr 13, 2017 13:33
--- NOTE | 2017-04-13 14:51 | Cardiac Electrophysiology PN ---
Assessment/Plan Assessment/Plan 1. S/P Septic Shock, On broad-spectrum intravenous antibiotics. 2. Paroxysmal atrial fibrillation. Currently in sinus rhythm with PACs but was in atrial fib yesterday. 3. Respiratory failure, off BiPAP.On Nasal Cannula. The patient is Do Not Intubate status. 4. Do Not Resuscitate and Do Not Intubate. 5.Status post percutaneous endoscopic gastrostomy placement. 6. Advanced dementia. Dw RN and daughter Subjective Subjective On tele. Off BIPAP.No arrhythmias on tele except for PACs. No fib. Daughter at bedside. Objective Last 24 Hour Vital Signs Date Time Temp Pulse Resp B/P Pulse Ox O2 Delivery O2 Flow Rate FiO2 04/13/17 12:00 87 04/13/17 12:00 97.8 82 18 127/69 100 Nasal Cannula 2.0 04/13/17 08:00 82 04/13/17 08:00 97.3 83 18 130/77 100 Nasal Cannula 2.0 04/13/17 07:45 Nasal Cannula 2.0 28 04/13/17 07:45 96 Nasal Cannula 2.0 28 04/13/17 04:00 97.5 85 20 121/74 96 Nasal Cannula 2.0 04/13/17 03:45 83 04/13/17 00:00 97.9 90 21 129/83 96 Nasal Cannula 2.0 04/12/17 23:36 86 04/12/17 21:58 Nasal Cannula 2.0 28 04/12/17 20:00 97.4 94 20 125/81 93 Room Air 04/12/17 19:03 88 04/12/17 16:00 94 04/12/17 16:00 98.1 88 21 118/78 98 Nasal Cannula 2.0 Intake and Output 04/12/17 04/13/17 19:00 07:00 Intake Total 2398 ml 1783 ml Output Total 2100 ml 1425 ml Balance 298 ml 358 ml Intake Free Water 150 ml IV Total 1773 ml 1783 ml Tube Feeding 475 ml Output Urine Total 2100 ml 1425 ml # Bowel Movements 1 Laboratory Tests Test 04/13/17 10:00 04/13/17 10:30 Sodium Level 144 mEQ/L (135-145) Potassium Level 3.1 mEQ/L (3.4-4.9) L Chloride Level 111 mEQ/L (98-107) H Carbon Dioxide Level 25 mEQ/L (20-30) Anion Gap 8 (5-15) Blood Urea Nitrogen 10 mg/dL (7-23) Creatinine 0.4 mg/dL (0.5-0.9) L Estimat Glomerular Filtration Rate mL/min (>60) Glucose Level 116 mg/dL (74-106) H Calcium Level 7.5 mg/dL (8.6-10.2) L Amikacin Level Trough 1.2 ug/mL (10.0-15.0) L White Blood Count 6.4 K/UL (4.8-10.8) # Red Blood Count 3.50 M/UL (4.20-5.40) L Hemoglobin 10.6 G/DL (12.0-16.0) L Hematocrit 32.8 % (37.0-47.0) L Mean Corpuscular Volume 94 FL (80-99) Mean Corpuscular Hemoglobin 30.3 PG (27.0-31.0) Mean Corpuscular Hemoglobin Concent 32.2 G/DL (32.0-36.0) Red Cell Distribution Width 12.4 % (11.6-14.8) Platelet Count 34 K/UL (150-450) L Mean Platelet Volume 10.1 FL (6.5-10.1) Neutrophils (%) (Auto) % (45.0-75.0) Lymphocytes (%) (Auto) % (20.0-45.0) Monocytes (%) (Auto) % (1.0-10.0) Eosinophils (%) (Auto) % (0.0-3.0) Basophils (%) (Auto) % (0.0-2.0) Differential Total Cells Counted 100 Neutrophils % (Manual) 72 % (45-75) Lymphocytes % (Manual) 18 % (20-45) L Monocytes % (Manual) 7 % (1-10) Eosinophils % (Manual) 3 % (0-3) Basophils % (Manual) 0 % (0-2) Band Neutrophils 0 % (0-8) Platelet Estimate Decreased L Platelet Morphology Normal Hypochromasia 1+ Microbiology Date/Time Source Procedure Growth Status 04/12/17 11:58 Stool Clostridium difficile Toxin Assay - Final Complete Objective HEAD AND NECK: No JVD. LUNGS: Decreased breath sounds. CARDIOVASCULAR: Shows regular S1 and S2 with no gallop. ABDOMEN: Soft.G-tube intact. EXTREMITIES: No pitting edema. JEET MONTE Apr 13, 2017 14:51
--- NOTE | 2017-04-13 15:46 | General Progress Note ---
Assessment/Plan Assessment/Plan 1. Thrombocytopenia, which is concerning for disseminated intravascular coagulation secondary to septic shock with some gram-negative rods, infection, she is on double coverage. --> DIC panel ordered as well as Abd imaging 2. Anemia secondary to chronic disease. 3. Leukocytosis secondary to sepsis and septic shock. 4. Shock liver, liver function tests are elevated. 5. Fever, she is on antibiotics per Infectious Diseases service. 6. Acute kidney injury. 7. Discussed with staff. Subjective Date patient seen: Apr 12, 2017 Constitutional: Reports: no symptoms HEENT: Reports: no symptoms Cardiovascular: Reports: no symptoms Respiratory: Reports: no symptoms Gastrointestinal/Abdominal: Reports: no symptoms Genitourinary: Reports: no symptoms Neurologic/Psychiatric: Reports: no symptoms Endocrine: Reports: no symptoms Allergies: Coded Allergies: No Known Allergies (Unverified , 04/09/17) Subjective no s/s of distress Objective Last 24 Hour Vital Signs Date Time Temp Pulse Resp B/P Pulse Ox O2 Delivery O2 Flow Rate FiO2 04/13/17 12:00 87 04/13/17 12:00 97.8 82 18 127/69 100 Nasal Cannula 2.0 04/13/17 08:00 82 04/13/17 08:00 97.3 83 18 130/77 100 Nasal Cannula 2.0 04/13/17 07:45 Nasal Cannula 2.0 28 04/13/17 07:45 96 Nasal Cannula 2.0 28 04/13/17 04:00 97.5 85 20 121/74 96 Nasal Cannula 2.0 04/13/17 03:45 83 04/13/17 00:00 97.9 90 21 129/83 96 Nasal Cannula 2.0 04/12/17 23:36 86 04/12/17 21:58 Nasal Cannula 2.0 28 04/12/17 20:00 97.4 94 20 125/81 93 Room Air 04/12/17 19:03 88 04/12/17 16:00 94 04/12/17 16:00 98.1 88 21 118/78 98 Nasal Cannula 2.0 Intake and Output 04/12/17 04/13/17 19:00 07:00 Intake Total 2398 ml 1783 ml Output Total 2100 ml 1425 ml Balance 298 ml 358 ml Intake Free Water 150 ml IV Total 1773 ml 1783 ml Tube Feeding 475 ml Output Urine Total 2100 ml 1425 ml # Bowel Movements 1 Laboratory Tests 04/13/17 10:00: Sodium Level 144, Potassium Level 3.1L, Chloride Level 111H, Carbon Dioxide Level 25, Anion Gap 8, Blood Urea Nitrogen 10, Creatinine 0.4L, Estimat Glomerular Filtration Rate , Glucose Level 116H, Calcium Level 7.5L, Amikacin Level Trough 1.2L 04/13/17 10:30: White Blood Count 6.4#, Red Blood Count 3.50L, Hemoglobin 10.6L, Hematocrit 32.8L, Mean Corpuscular Volume 94, Mean Corpuscular Hemoglobin 30.3, Mean Corpuscular Hemoglobin Concent 32.2, Red Cell Distribution Width 12.4, Platelet Count 34L, Mean Platelet Volume 10.1, Neutrophils (%) (Auto) , Lymphocytes (%) ( Auto) , Monocytes (%) (Auto) , Eosinophils (%) (Auto) , Basophils (%) (Auto) , Differential Total Cells Counted 100, Neutrophils % (Manual) 72, Lymphocytes % ( Manual) 18L, Monocytes % (Manual) 7, Eosinophils % (Manual) 3, Basophils % ( Manual) 0, Band Neutrophils 0, Platelet Estimate DecreasedL, Platelet Morphology Normal, Hypochromasia 1+ Height (Feet): 5 Height (Inches): 4.00 Weight (Pounds): 125 General Appearance: no apparent distress EENT: PERRL/EOMI Neck: non-tender Cardiovascular: normal peripheral pulses Respiratory/Chest: chest wall non-tender 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
--- NOTE | 2017-04-13 15:48 | General Progress Note ---
Assessment/Plan Assessment/Plan 1. Thrombocytopenia, which is concerning for disseminated intravascular coagulation secondary to septic shock with some gram-negative rods, infection, she is on double coverage. --> DIC panel ordered as well as Abd imaging --> labs are currently pending 2. Anemia secondary to chronic disease. 3. Leukocytosis secondary to sepsis and septic shock. 4. Shock liver, liver function tests are elevated. 5. Fever, she is on antibiotics per Infectious Diseases service. 6. Acute kidney injury. 7. Discussed with staff. Subjective Constitutional: Reports: no symptoms HEENT: Reports: no symptoms Cardiovascular: Reports: no symptoms Respiratory: Reports: no symptoms Gastrointestinal/Abdominal: Reports: no symptoms Genitourinary: Reports: no symptoms Neurologic/Psychiatric: Reports: no symptoms Endocrine: Reports: no symptoms Hematologic/Lymphatic: Reports: anemia Allergies: Coded Allergies: No Known Allergies (Unverified , 04/09/17) Subjective in bed, no events overnight Objective Last 24 Hour Vital Signs Date Time Temp Pulse Resp B/P Pulse Ox O2 Delivery O2 Flow Rate FiO2 04/13/17 12:00 87 04/13/17 12:00 97.8 82 18 127/69 100 Nasal Cannula 2.0 04/13/17 08:00 82 04/13/17 08:00 97.3 83 18 130/77 100 Nasal Cannula 2.0 04/13/17 07:45 Nasal Cannula 2.0 28 04/13/17 07:45 96 Nasal Cannula 2.0 28 04/13/17 04:00 97.5 85 20 121/74 96 Nasal Cannula 2.0 04/13/17 03:45 83 04/13/17 00:00 97.9 90 21 129/83 96 Nasal Cannula 2.0 04/12/17 23:36 86 04/12/17 21:58 Nasal Cannula 2.0 28 04/12/17 20:00 97.4 94 20 125/81 93 Room Air 04/12/17 19:03 88 04/12/17 16:00 94 04/12/17 16:00 98.1 88 21 118/78 98 Nasal Cannula 2.0 Intake and Output 04/12/17 04/13/17 19:00 07:00 Intake Total 2398 ml 1783 ml Output Total 2100 ml 1425 ml Balance 298 ml 358 ml Intake Free Water 150 ml IV Total 1773 ml 1783 ml Tube Feeding 475 ml Output Urine Total 2100 ml 1425 ml # Bowel Movements 1 Laboratory Tests 04/13/17 10:00: Sodium Level 144, Potassium Level 3.1L, Chloride Level 111H, Carbon Dioxide Level 25, Anion Gap 8, Blood Urea Nitrogen 10, Creatinine 0.4L, Estimat Glomerular Filtration Rate , Glucose Level 116H, Calcium Level 7.5L, Amikacin Level Trough 1.2L 04/13/17 10:30: White Blood Count 6.4#, Red Blood Count 3.50L, Hemoglobin 10.6L, Hematocrit 32.8L, Mean Corpuscular Volume 94, Mean Corpuscular Hemoglobin 30.3, Mean Corpuscular Hemoglobin Concent 32.2, Red Cell Distribution Width 12.4, Platelet Count 34L, Mean Platelet Volume 10.1, Neutrophils (%) (Auto) , Lymphocytes (%) ( Auto) , Monocytes (%) (Auto) , Eosinophils (%) (Auto) , Basophils (%) (Auto) , Differential Total Cells Counted 100, Neutrophils % (Manual) 72, Lymphocytes % ( Manual) 18L, Monocytes % (Manual) 7, Eosinophils % (Manual) 3, Basophils % ( Manual) 0, Band Neutrophils 0, Platelet Estimate DecreasedL, Platelet Morphology Normal, Hypochromasia 1+ Height (Feet): 5 Height (Inches): 4.00 Weight (Pounds): 125 General Appearance: no apparent distress EENT: normal ENT inspection Neck: normal alignment Cardiovascular: normal peripheral pulses Respiratory/Chest: chest wall non-tender Abdomen: normal bowel sounds Edema: mild edema Neurologic: rn acute care II-XII grossly normal Skin: warm/dry Kishore Titus Apr 13, 2017 15:48
[2017-04-13 16:37] LABS: THYROID STIMULATING HORMONE 3.1 uIU/mL (0.300-4.500)
[2017-04-13 16:55] LABS: PATH BLOOD SMEAR/OMC SENT TO PATHOLOGIST; RETICULOCYTE COUNT 0.2 % (0.0-2.0)
[2017-04-13] MEDS: KCl 10% 40mEq/30ml liquid NG SCH ×2 (17:02→22:00)
[2017-04-13 20:50] LABS: INR 1.1 (0.9-1.1)
[2017-04-13] MEDS: Dyna-Hex 2% Top Sol 8oz TOPIC SCH (22:01)
[2017-04-14 03:46] VITALS: BP 131/79
[2017-04-14 05:46] LABS: MEAN CORPUSCULAR VOLUME 94 FL (80-99); MEAN PLATELET VOLUME 10.7 FL (6.5-10.1); PLATELET COUNT 40 K/UL (150-450); RED BLOOD COUNT 3.41 M/UL (4.20-5.40); RED CELL DISTRIBUTION WIDTH 12.6 % (11.6-14.8); WHITE BLOOD COUNT 5.7 K/UL (4.8-10.8)
[2017-04-14 06:14] LABS: ANION GAP 7 (5-15); CALCIUM 7.5 mg/dL (8.6-10.2); CARBON DIOXIDE 26 mEQ/L (20-30); CHLORIDE 107 mEQ/L (98-107); CREATININE 0.4 mg/dL (0.5-0.9); HEMOLYSIS 16; POTASSIUM 3.6 mEQ/L (3.4-4.9); SODIUM 140 mEQ/L (135-145)
--- NOTE | 2017-04-14 06:45 | Progress Note ---
DATE: 04/13/2017 CARDIOLOGY PROGRESS NOTE SUBJECTIVE: The patient is off BiPAP. Monitored rhythm sinus with PACs, recurring atrial fibrillation, respiratory parameters are improved. OBJECTIVE: VITALS SIGNS: Afebrile, blood pressure 127/69, heart rate 82, and respiratory rate 18. LUNGS: Coarse breath sounds. Rhonchi. HEART: Regular rhythm and rate. Occasional ectopic beats. ABDOMEN: Soft. EXTREMITIES: Trace edema. LABORATORY DATA: Sodium 144, potassium 3.1, bicarbonate 25, chloride 111, BUN 10, creatinine 0.4, glucose 116. White count 6.4, hemoglobin 10.6. Iron is 18 with 16% saturation. IMPRESSION: 1. Acute on chronic diastolic congestive heart failure . 2. Respiratory failure. 3. Healthcare-acquired pneumonia. 4. Iron-deficiency anemia. 5. Sepsis with shock. 6. Hypokalemia. PLAN: 1. Iron replacement. 2. Potassium replacement. 3. Check magnesium. 4. Periodic diuresis. 5. Followup chest x-ray. 6. Titrate antihypertensives. Milton Echevarria M.D. DR: Ronaldo JOB#: [id number] CC:
[2017-04-14 07:29] LABS: BAND NEUTROPHILS % (MANUAL) 0 % (0-8); BASOPHILS % (MANUAL) 0 % (0-2); EOSINOPHILS % (MANUAL) 4 % (0-3); LYMPHOCYTES % (MANUAL) 18 % (20-45); NEUTROPHILS % (MANUAL) 71 % (45-75); PLATELET ESTIMATE DECREASED; PLATELET MORPHOLOGY NORMAL; TOTAL CELLS COUNTED 100
[2017-04-14 07:30] LABS: HYPOCHROMASIA 1+
[2017-04-14 07:51] VITALS: BP 127/78
[2017-04-14] MEDS: Pantoprazole Inj IVP SCH (09:15)
[2017-04-14] MEDS: cefTRIAXone 2 GM in D5W 110 ML IVPB SCH (09:16)
--- NOTE | 2017-04-14 10:30 | Pulmonology Progress Note ---
Assessment/Plan Assessment/Plan IMPRESSION: 1. Urinary tract infection. 2. Septic, septic shock. Resolved 3. Do Not Intubate. 4. Respiratory failure on BiPAP. Resolved now 5. Dementia. 6. Pulm edema DISCUSSION: Broad-spectrum antibiotics. off Levophed, pressors. Off BiPAP. I will follow as rail specialist; labs in AM Suggest diuresis Await CXR Subjective Interval Events: Feeling bettrer; saturating well on 2L/min nasal o2 Constitutional: Reports: no symptoms HEENT: Repors: no symptoms Respiratory: Reports: no symptoms Cardiovascular: Reports: no symptoms Gastrointestinal/Abdominal: Reports: no symptoms Allergies: Coded Allergies: No Known Allergies (Unverified , 04/09/17) Objective Last 24 Hour Vital Signs Date Time Temp Pulse Resp B/P Pulse Ox O2 Delivery O2 Flow Rate FiO2 04/14/17 09:02 Nasal Cannula 2.0 28 04/14/17 09:02 95 Nasal Cannula 2.0 28 04/14/17 07:51 97.9 80 19 127/78 98 Room Air 04/14/17 03:51 80 04/14/17 03:46 98.6 80 17 131/79 96 Nasal Cannula 2.0 04/13/17 23:49 83 04/13/17 23:46 98.8 84 18 130/89 99 Nasal Cannula 2.0 04/13/17 20:00 85 04/13/17 19:55 98.6 82 19 132/84 94 Nasal Cannula 2.0 04/13/17 19:25 Nasal Cannula 2.0 28 04/13/17 19:24 97 Nasal Cannula 2.0 28 04/13/17 16:00 86 04/13/17 16:00 97.5 75 18 122/69 97 Nasal Cannula 04/13/17 12:00 87 04/13/17 12:00 97.8 82 18 127/69 100 Nasal Cannula 2.0 Intake and Output 04/13/17 04/14/17 19:00 07:00 Intake Total 1900 ml 1050 ml Output Total 1600 ml 2000 ml Balance 300 ml -950 ml Intake Free Water 150 ml IV Total 1310 ml 1050 ml Tube Feeding 440 ml Output Urine Total 1600 ml 2000 ml # Bowel Movements 1 1 General Appearance: no acute distress HEENT: normocephalic Respiratory/Chest: chest wall non-tender, decreased breath sounds Cardiovascular: normal peripheral pulses, normal rate Microbiology Date/Time Source Procedure Growth Status 04/12/17 11:58 Stool Clostridium difficile Toxin Assay - Final Complete Laboratory Tests 04/13/17 10:30: White Blood Count 6.4#, Red Blood Count 3.50L, Hemoglobin 10.6L, Hematocrit 32.8L, Mean Corpuscular Volume 94, Mean Corpuscular Hemoglobin 30.3, Mean Corpuscular Hemoglobin Concent 32.2, Red Cell Distribution Width 12.4, Platelet Count 34L, Mean Platelet Volume 10.1, Neutrophils (%) (Auto) , Lymphocytes (%) ( Auto) , Monocytes (%) (Auto) , Eosinophils (%) (Auto) , Basophils (%) (Auto) , Differential Total Cells Counted 100, Neutrophils % (Manual) 72, Lymphocytes % ( Manual) 18L, Monocytes % (Manual) 7, Eosinophils % (Manual) 3, Basophils % ( Manual) 0, Band Neutrophils 0, Platelet Estimate DecreasedL, Platelet Morphology Normal, Hypochromasia 1+, Reticulocyte Count 0.2, Haptoglobin 166, Prothrombin Gene Mutation [Pending], Prothrombin Gene Shared Component [Pending] , Iron Level 18L, Total Iron Binding Capacity 114L, Percent Iron Saturation 16, Unsaturated Iron Binding 96L, Ferritin 403H, Vitamin B12 Level 1008H, Thyroid Stimulating Hormone (TSH) 3.100 04/13/17 20:16: Prothrombin Time 11.0, Prothromb Time International Ratio 1.1, Fibrinogen 243 04/14/17 05:00: White Blood Count 5.7, Red Blood Count 3.41L, Hemoglobin 10.6L, Hematocrit 32.1L , Mean Corpuscular Volume 94, Mean Corpuscular Hemoglobin 31.0, Mean Corpuscular Hemoglobin Concent 33.0, Red Cell Distribution Width 12.6, Platelet Count 40L, Mean Platelet Volume 10.7H, Neutrophils (%) (Auto) , Lymphocytes (%) (Auto) , Monocytes (%) (Auto) , Eosinophils (%) (Auto) , Basophils (%) (Auto) , Differential Total Cells Counted 100, Neutrophils % (Manual) 71, Lymphocytes % ( Manual) 18L, Monocytes % (Manual) 7, Eosinophils % (Manual) 4H, Basophils % ( Manual) 0, Band Neutrophils 0, Platelet Estimate DecreasedL, Platelet Morphology Normal, Hypochromasia 1+, Stool Occult Blood [Pending], Sodium Level 140, Potassium Level 3.6, Chloride Level 107, Carbon Dioxide Level 26, Anion Gap 7, Blood Urea Nitrogen 9, Creatinine 0.4L, Estimat Glomerular Filtration Rate , Glucose Level 105, Calcium Level 7.5L, Magnesium Level 1.4L Current Medications Medications (Trade) Dose Ordered Sig/Yissel Route PRN Reason Start Time Stop Time Status Last Admin Dose Admin Acetaminophen (Tylenol) 650 mg Q4H PRN ORAL Mild Pain (Pain Scale 1-3) 04/11/17 15:30 05/11/17 15:29 Ceftriaxone Sodium/Dextrose (Rocephin/D5W) 110 ml @ 220 mls/hr Q24H IVPB 04/13/17 10:45 04/20/17 10:44 04/14/17 09:16 Chlorhexidine Gluconate (Chandrika-Hex 2%) 1 applic QHS TOPIC 04/11/17 21:00 05/11/17 20:59 04/13/17 22:01 Dextrose (Dextrose 50%) STAT PRN IV Hypoglycemia 04/11/17 15:30 05/11/17 15:29 Pantoprazole 40 mg 40 mg DAILY IVP 04/12/17 09:00 05/12/17 08:59 04/14/17 09:15 Edd Goins MD Apr 14, 2017 10:30
[2017-04-14 11:19] LABS: OTHERS PATHOLOGIST COMMENT
[2017-04-14 12:00] VITALS: BP 129/82
--- NOTE | 2017-04-14 15:43 | General Progress Note ---
Assessment/Plan Assessment/Plan 1. Thrombocytopenia, which is concerning for disseminated intravascular coagulation secondary to septic shock with some gram-negative rods, infection, she is on double coverage. --> DIC panel ordered as well as Abd imaging -->Has been reviewed, awaiting imaging, need consent from daughter 2. Anemia secondary to chronic disease --> pt's ferritin is elevated, ACD 3. Leukocytosis secondary to sepsis and septic shock. 4. Shock liver, liver function tests are elevated. 5. Fever, she is on antibiotics per Infectious Diseases service. 6. Acute kidney injury. 7. Discussed with staff. Subjective Constitutional: Reports: no symptoms HEENT: Reports: no symptoms Cardiovascular: Reports: no symptoms Respiratory: Reports: no symptoms Gastrointestinal/Abdominal: Reports: no symptoms Genitourinary: Reports: no symptoms Neurologic/Psychiatric: Reports: no symptoms Endocrine: Reports: no symptoms Hematologic/Lymphatic: Reports: no symptoms Allergies: Coded Allergies: No Known Allergies (Unverified , 04/09/17) Subjective pt sleeping, responds to voice Objective Last 24 Hour Vital Signs Date Time Temp Pulse Resp B/P Pulse Ox O2 Delivery O2 Flow Rate FiO2 04/14/17 12:52 80 04/14/17 12:00 97.9 81 19 129/82 98 Nasal Cannula 2.0 04/14/17 09:02 Nasal Cannula 2.0 28 04/14/17 09:02 95 Nasal Cannula 2.0 28 04/14/17 08:00 80 04/14/17 07:51 97.9 80 19 127/78 98 Room Air 04/14/17 03:51 80 04/14/17 03:46 98.6 80 17 131/79 96 Nasal Cannula 2.0 04/13/17 23:49 83 04/13/17 23:46 98.8 84 18 130/89 99 Nasal Cannula 2.0 04/13/17 20:00 85 04/13/17 19:55 98.6 82 19 132/84 94 Nasal Cannula 2.0 04/13/17 19:25 Nasal Cannula 2.0 28 04/13/17 19:24 97 Nasal Cannula 2.0 28 04/13/17 16:00 86 04/13/17 16:00 97.5 75 18 122/69 97 Nasal Cannula Intake and Output 04/13/17 04/14/17 19:00 07:00 Intake Total 1900 ml 1050 ml Output Total 1600 ml 2000 ml Balance 300 ml -950 ml Intake Free Water 150 ml IV Total 1310 ml 1050 ml Tube Feeding 440 ml Output Urine Total 1600 ml 2000 ml # Bowel Movements 1 1 Laboratory Tests 04/13/17 20:16: Prothrombin Time 11.0, Prothromb Time International Ratio 1.1, Fibrinogen 243 04/14/17 05:00: White Blood Count 5.7, Red Blood Count 3.41L, Hemoglobin 10.6L, Hematocrit 32.1L , Mean Corpuscular Volume 94, Mean Corpuscular Hemoglobin 31.0, Mean Corpuscular Hemoglobin Concent 33.0, Red Cell Distribution Width 12.6, Platelet Count 40L, Mean Platelet Volume 10.7H, Neutrophils (%) (Auto) , Lymphocytes (%) (Auto) , Monocytes (%) (Auto) , Eosinophils (%) (Auto) , Basophils (%) (Auto) , Differential Total Cells Counted 100, Neutrophils % (Manual) 71, Lymphocytes % ( Manual) 18L, Monocytes % (Manual) 7, Eosinophils % (Manual) 4H, Basophils % ( Manual) 0, Band Neutrophils 0, Platelet Estimate DecreasedL, Platelet Morphology Normal, Hypochromasia 1+, Stool Occult Blood Negative, Sodium Level 140, Potassium Level 3.6, Chloride Level 107, Carbon Dioxide Level 26, Anion Gap 7, Blood Urea Nitrogen 9, Creatinine 0.4L, Estimat Glomerular Filtration Rate , Glucose Level 105, Calcium Level 7.5L, Magnesium Level 1.4L Height (Feet): 5 Height (Inches): 4.00 Weight (Pounds): 125 General Appearance: WD/WN EENT: PERRL/EOMI Neck: normal alignment Cardiovascular: normal peripheral pulses Respiratory/Chest: chest wall non-tender, lungs clear Abdomen: normal bowel sounds Neurologic: office manager receptionist II-XII grossly normal Skin: warm/dry Kishore Titus Apr 14, 2017 15:43
--- NOTE | 2017-04-14 15:48 | Infectious Diseases Prog Note ---
Assessment/Plan Problems: (1) Septic shock Assessment & Plan: due to proteus mirabilis and Morganella morgagnii , improved on meropenem, and amikacin , now on ceftriaxon to finish her course of therapy for two weeks, repeated blood culture to confirm clearance is pending (2) UTI (urinary tract infection) Assessment & Plan: with proteus mirabillis , on ceftriaxon to finish her course (3) Acute respiratory failure Assessment & Plan: due to the above, improving, S/P BIPAP, pulmonary is following, monitor ABG, and CXR (4) Shock liver Assessment & Plan: improved, due to the above, monitor LFT, will screen for hepatitis (5) SHAYNE (acute kidney injury) Assessment & Plan: improving, due to septic shock and hypotension, continue hydration , monitor UOP, renal is following Subjective ROS Limited/Unobtainable: Yes Allergies: Coded Allergies: No Known Allergies (Unverified , 04/09/17) Subjective she was awake and alert, open eyes spontaneously, nonverbal, not in distress, afebrile. Objective Vital Signs Last 24 Hour Vital Signs Date Time Temp Pulse Resp B/P Pulse Ox O2 Delivery O2 Flow Rate FiO2 04/14/17 12:52 80 04/14/17 12:00 97.9 81 19 129/82 98 Nasal Cannula 2.0 04/14/17 09:02 Nasal Cannula 2.0 28 04/14/17 09:02 95 Nasal Cannula 2.0 28 04/14/17 08:00 80 04/14/17 07:51 97.9 80 19 127/78 98 Room Air 04/14/17 03:51 80 04/14/17 03:46 98.6 80 17 131/79 96 Nasal Cannula 2.0 04/13/17 23:49 83 04/13/17 23:46 98.8 84 18 130/89 99 Nasal Cannula 2.0 04/13/17 20:00 85 04/13/17 19:55 98.6 82 19 132/84 94 Nasal Cannula 2.0 04/13/17 19:25 Nasal Cannula 2.0 28 04/13/17 19:24 97 Nasal Cannula 2.0 28 04/13/17 16:00 86 04/13/17 16:00 97.5 75 18 122/69 97 Nasal Cannula Height (Feet): 5 Height (Inches): 4.00 Weight (Pounds): 125 General Appearance: WD/WN, no acute distress HEENT: normocephalic, atraumatic, anicteric, mucous membranes moist, PERRL Respiratory/Chest: chest wall non-tender, lungs clear, normal breath sounds, no respiratory distress, no accessory muscle use Cardiovascular: normal peripheral pulses, normal rate, regular rhythm, no gallop/murmur, no JVD Abdomen: normal bowel sounds, soft, non tender, no organomegaly, non distended , no mass, no scars Extremities: no cyanosis, no clubbing Skin: no rash, no lesions Neurologic/Psychiatric: alert Lymphatic: no neck adenopathy Microbiology Date/Time Source Procedure Growth Status 04/12/17 11:58 Stool Clostridium difficile Toxin Assay - Final Complete Laboratory Tests Test 04/13/17 20:16 04/14/17 05:00 Prothrombin Time 11.0 SEC (9.30-11.50) Prothromb Time International Ratio 1.1 (0.9-1.1) Fibrinogen 243 mg/dL (200-400) White Blood Count 5.7 K/UL (4.8-10.8) Red Blood Count 3.41 M/UL (4.20-5.40) L Hemoglobin 10.6 G/DL (12.0-16.0) L Hematocrit 32.1 % (37.0-47.0) L Mean Corpuscular Volume 94 FL (80-99) Mean Corpuscular Hemoglobin 31.0 PG (27.0-31.0) Mean Corpuscular Hemoglobin Concent 33.0 G/DL (32.0-36.0) Red Cell Distribution Width 12.6 % (11.6-14.8) Platelet Count 40 K/UL (150-450) L Mean Platelet Volume 10.7 FL (6.5-10.1) H Neutrophils (%) (Auto) % (45.0-75.0) Lymphocytes (%) (Auto) % (20.0-45.0) Monocytes (%) (Auto) % (1.0-10.0) Eosinophils (%) (Auto) % (0.0-3.0) Basophils (%) (Auto) % (0.0-2.0) Differential Total Cells Counted 100 Neutrophils % (Manual) 71 % (45-75) Lymphocytes % (Manual) 18 % (20-45) L Monocytes % (Manual) 7 % (1-10) Eosinophils % (Manual) 4 % (0-3) H Basophils % (Manual) 0 % (0-2) Band Neutrophils 0 % (0-8) Platelet Estimate Decreased L Platelet Morphology Normal Hypochromasia 1+ Stool Occult Blood Negative (NEGATIVE) Sodium Level 140 mEQ/L (135-145) Potassium Level 3.6 mEQ/L (3.4-4.9) Chloride Level 107 mEQ/L (98-107) Carbon Dioxide Level 26 mEQ/L (20-30) Anion Gap 7 (5-15) Blood Urea Nitrogen 9 mg/dL (7-23) Creatinine 0.4 mg/dL (0.5-0.9) L Estimat Glomerular Filtration Rate mL/min (>60) Glucose Level 105 mg/dL (74-106) Calcium Level 7.5 mg/dL (8.6-10.2) L Magnesium Level 1.4 mg/dL (1.7-2.5) L Current Medications Medications (Trade) Dose Ordered Sig/Yissel Route PRN Reason Start Time Stop Time Status Last Admin Dose Admin Acetaminophen (Tylenol) 650 mg Q4H PRN ORAL Mild Pain (Pain Scale 1-3) 04/11/17 15:30 05/11/17 15:29 Ceftriaxone Sodium/Dextrose (Rocephin/D5W) 110 ml @ 220 mls/hr Q24H IVPB 04/13/17 10:45 04/20/17 10:44 04/14/17 09:16 Chlorhexidine Gluconate (Chandrika-Hex 2%) 1 applic QHS TOPIC 04/11/17 21:00 05/11/17 20:59 04/13/17 22:01 Dextrose (Dextrose 50%) STAT PRN IV Hypoglycemia 04/11/17 15:30 05/11/17 15:29 Pantoprazole 40 mg 40 mg DAILY IVP 04/12/17 09:00 05/12/17 08:59 04/14/17 09:15 Alberto Philip M.D. Apr 14, 2017 15:48
[2017-04-14 16:11] VITALS: BP 124/74
--- NOTE | 2017-04-14 16:15 | Nephrology Progress Note ---
Assessment/Plan Problem List: (1) Sepsis (2) Hypotension (3) bipap (4) Acute respiratory failure (5) Septic shock (6) Fever (7) UTI (urinary tract infection) (8) Shock liver (9) SHAYNE (acute kidney injury) (10) Dementia (11) Alzheimer's dementia (12) Anemia of chronic disease Plan Continue current treatment plan Cardio and pulmo following Monitor lytes, replace prn Monitor counts, hematology following Abx per ID Monitor neuro status Continue tube feeding DVT prophylaxis with SCD Monitor intake and output - continue woo AM labs Subjective ROS Limited/Unobtainable: Yes Subjective Awake, family at bedside Objective Objective Last 24 Hour Vital Signs Date Time Temp Pulse Resp B/P Pulse Ox O2 Delivery O2 Flow Rate FiO2 04/14/17 12:52 80 04/14/17 12:00 97.9 81 19 129/82 98 Nasal Cannula 2.0 04/14/17 09:02 Nasal Cannula 2.0 28 04/14/17 09:02 95 Nasal Cannula 2.0 28 04/14/17 08:00 80 04/14/17 07:51 97.9 80 19 127/78 98 Room Air 04/14/17 03:51 80 04/14/17 03:46 98.6 80 17 131/79 96 Nasal Cannula 2.0 04/13/17 23:49 83 04/13/17 23:46 98.8 84 18 130/89 99 Nasal Cannula 2.0 04/13/17 20:00 85 04/13/17 19:55 98.6 82 19 132/84 94 Nasal Cannula 2.0 04/13/17 19:25 Nasal Cannula 2.0 28 04/13/17 19:24 97 Nasal Cannula 2.0 28 Intake and Output 04/13/17 04/14/17 19:00 07:00 Intake Total 1900 ml 1050 ml Output Total 1600 ml 2000 ml Balance 300 ml -950 ml Intake Free Water 150 ml IV Total 1310 ml 1050 ml Tube Feeding 440 ml Output Urine Total 1600 ml 2000 ml # Bowel Movements 1 1 Laboratory Tests 04/13/17 20:16: Prothrombin Time 11.0, Prothromb Time International Ratio 1.1, Fibrinogen 243 04/14/17 05:00: White Blood Count 5.7, Red Blood Count 3.41L, Hemoglobin 10.6L, Hematocrit 32.1L , Mean Corpuscular Volume 94, Mean Corpuscular Hemoglobin 31.0, Mean Corpuscular Hemoglobin Concent 33.0, Red Cell Distribution Width 12.6, Platelet Count 40L, Mean Platelet Volume 10.7H, Neutrophils (%) (Auto) , Lymphocytes (%) (Auto) , Monocytes (%) (Auto) , Eosinophils (%) (Auto) , Basophils (%) (Auto) , Differential Total Cells Counted 100, Neutrophils % (Manual) 71, Lymphocytes % ( Manual) 18L, Monocytes % (Manual) 7, Eosinophils % (Manual) 4H, Basophils % ( Manual) 0, Band Neutrophils 0, Platelet Estimate DecreasedL, Platelet Morphology Normal, Hypochromasia 1+, Stool Occult Blood Negative, Sodium Level 140, Potassium Level 3.6, Chloride Level 107, Carbon Dioxide Level 26, Anion Gap 7, Blood Urea Nitrogen 9, Creatinine 0.4L, Estimat Glomerular Filtration Rate , Glucose Level 105, Calcium Level 7.5L, Magnesium Level 1.4L Height (Feet): 5 Height (Inches): 4.00 Weight (Pounds): 125 General Appearance: no apparent distress EENT: normal ENT inspection Neck: non-tender, normal alignment, supple Cardiovascular: normal rate, regular rhythm Respiratory/Chest: lungs clear, normal breath sounds Abdomen: non tender, soft, other - PEG Genitourinary/Rectal: other - woo Extremities: normal inspection, no calf tenderness, trace edema Neurologic: normal mood/affect Rosa Isela Villavicencio N.P. Apr 14, 2017 16:15
[2017-04-14] MEDS ORDERED: CEFTRIAXONE2 G2 IV (17:37)
--- NOTE | 2017-04-14 17:59 | Cardiac Electrophysiology PN ---
Assessment/Plan Assessment/Plan 1. S/P Septic Shock, on antibiotics per ID 2. Paroxysmal atrial fibrillation. Currently in sinus rhythm with PACs but was in atrial fib 2 days ago 3. Respiratory failure, off BiPAP.On Nasal Cannula. The patient is Do Not Intubate status. 4. Do Not Resuscitate and Do Not Intubate. 5. Status post percutaneous endoscopic gastrostomy placement. 6. Advanced dementia. Alex RN Subjective Subjective On tele. Off BIPAP.No arrhythmias on tele . Is being transferred back to [facility]. Objective Last 24 Hour Vital Signs Date Time Temp Pulse Resp B/P Pulse Ox O2 Delivery O2 Flow Rate FiO2 04/14/17 16:21 76 04/14/17 16:11 98.7 81 19 124/74 99 Nasal Cannula 2.0 04/14/17 12:52 80 04/14/17 12:00 97.9 81 19 129/82 98 Nasal Cannula 2.0 04/14/17 09:02 Nasal Cannula 2.0 28 04/14/17 09:02 95 Nasal Cannula 2.0 28 04/14/17 08:00 80 04/14/17 07:51 97.9 80 19 127/78 98 Room Air 04/14/17 03:51 80 04/14/17 03:46 98.6 80 17 131/79 96 Nasal Cannula 2.0 04/13/17 23:49 83 04/13/17 23:46 98.8 84 18 130/89 99 Nasal Cannula 2.0 04/13/17 20:00 85 04/13/17 19:55 98.6 82 19 132/84 94 Nasal Cannula 2.0 04/13/17 19:25 Nasal Cannula 2.0 28 04/13/17 19:24 97 Nasal Cannula 2.0 28 Intake and Output 04/13/17 04/14/17 19:00 07:00 Intake Total 1900 ml 1050 ml Output Total 1600 ml 2000 ml Balance 300 ml -950 ml Intake Free Water 150 ml IV Total 1310 ml 1050 ml Tube Feeding 440 ml Output Urine Total 1600 ml 2000 ml # Bowel Movements 1 1 Laboratory Tests Test 04/13/17 20:16 04/14/17 05:00 Prothrombin Time 11.0 SEC (9.30-11.50) Prothromb Time International Ratio 1.1 (0.9-1.1) Fibrinogen 243 mg/dL (200-400) White Blood Count 5.7 K/UL (4.8-10.8) Red Blood Count 3.41 M/UL (4.20-5.40) L Hemoglobin 10.6 G/DL (12.0-16.0) L Hematocrit 32.1 % (37.0-47.0) L Mean Corpuscular Volume 94 FL (80-99) Mean Corpuscular Hemoglobin 31.0 PG (27.0-31.0) Mean Corpuscular Hemoglobin Concent 33.0 G/DL (32.0-36.0) Red Cell Distribution Width 12.6 % (11.6-14.8) Platelet Count 40 K/UL (150-450) L Mean Platelet Volume 10.7 FL (6.5-10.1) H Neutrophils (%) (Auto) % (45.0-75.0) Lymphocytes (%) (Auto) % (20.0-45.0) Monocytes (%) (Auto) % (1.0-10.0) Eosinophils (%) (Auto) % (0.0-3.0) Basophils (%) (Auto) % (0.0-2.0) Differential Total Cells Counted 100 Neutrophils % (Manual) 71 % (45-75) Lymphocytes % (Manual) 18 % (20-45) L Monocytes % (Manual) 7 % (1-10) Eosinophils % (Manual) 4 % (0-3) H Basophils % (Manual) 0 % (0-2) Band Neutrophils 0 % (0-8) Platelet Estimate Decreased L Platelet Morphology Normal Hypochromasia 1+ Stool Occult Blood Negative (NEGATIVE) Sodium Level 140 mEQ/L (135-145) Potassium Level 3.6 mEQ/L (3.4-4.9) Chloride Level 107 mEQ/L (98-107) Carbon Dioxide Level 26 mEQ/L (20-30) Anion Gap 7 (5-15) Blood Urea Nitrogen 9 mg/dL (7-23) Creatinine 0.4 mg/dL (0.5-0.9) L Estimat Glomerular Filtration Rate mL/min (>60) Glucose Level 105 mg/dL (74-106) Calcium Level 7.5 mg/dL (8.6-10.2) L Magnesium Level 1.4 mg/dL (1.7-2.5) L Microbiology Date/Time Source Procedure Growth Status 04/12/17 11:58 Stool Clostridium difficile Toxin Assay - Final Complete Objective HEAD AND NECK: No JVD. LUNGS: Decreased breath sounds. CARDIOVASCULAR: Shows regular S1 and S2 with no gallop. ABDOMEN: Soft.G-tube intact. EXTREMITIES: No pitting edema. JEET MONTE Apr 14, 2017 17:59
--- NOTE | 2017-04-14 19:00 | Cardiology Report ---
APPROVED REPORT EKG Measurement Heart [id number] Normal sinus rhythm Nonspecific T wave abnormality Abnormal ECG
--- NOTE | 2017-04-15 10:40 | Discharge Summary ---
Discharge Summary Hospital Course Date of Admission Apr 09, 2017 at 03:25 Date of Discharge Apr 14, 2017 at 17:56 Admitting Diagnosis Sepsis HPI Bell Toure is a 87 year old female who was admitted on Apr 09, 2017 at 03:25 for Sepsis Hospital Course dc summary #[id number] Discharge Medications Continued Medications: Acetaminophen (Acetaminophen 8 Hour) 650 Mg Tablet 650 MG GT QID PRN Amino Acids/Protein Hydrolys (Pro-Stat Liquid) 30 Ml Liquid.pkt 30 ML GT DAILY, ML Amlodipine Besylate (Norvasc) 2.5 Mg Tab 2.5 MG GT DAILY Aspirin* (Aspir 81*) 81 Mg Tablet.dr 81 MG GT DAILY, TAB Atorvastatin Calcium* (Lipitor*) 10 Mg Tablet 10 MG ORAL BEDTIME, TAB Bethanechol Chl (Bethanechol Chloride) 10 Mg Tab 10 MG GT FOUR TIMES A DAY, #20 TAB Bisacodyl (Dulcolax) 10 Mg Supp.rect 10 MG RC DAILY PRN Ceftriaxone Sodium (Ceftriaxone) 2 Gm Vial.port 2 GM IV DAILY for 14 Days, VIAL Donepezil Hcl* (Aricept*) 5 Mg Tablet 5 MG GT QHS Hydralazine Hcl* (Hydralazine Hcl*) 25 Mg Tablet 25 MG GT QID PRN Magnesium Hydroxide (Milk of Magnesia) 30 Ml Susp 30 ML GT DAILY PRN Metoprolol Tartrate* (Metoprolol Tartrate*) 50 Mg Tablet 50 MG GT TID Rosuvastatin Calcium (Crestor) 10 Mg Tab 10 MG GT QHS Sennosides (Senna) 8.6 Mg Tablet 8.6 MG GT, TAB Tramadol Hcl* (Ultram*) 50 Mg Tablet 50 MG GT QID PRN, #15 TAB Discharge Condition Upon Discharge: stable Discharge Disposition Patient was discharged to SNF/Subacute Facility(03) Discharge Diagnoses: Discharge Instructions Discharge Instructions Special Instructions I have been assigned to complete a D/C Summary on this account. I was not involved in the patient management Josephine Alonso NP (Vanchtein) Apr 15, 2017 10:40
--- NOTE | 2017-04-15 11:33 | Cardiology Report ---
APPROVED REPORT EXAM: Two-dimensional and M-mode echocardiogram with Doppler and color Doppler. INDICATION Hypotension M-Mode DIMENSIONS IVSd1.6 (0.7-1.1cm)Left Atrium (MM)3.6 (1.6-4.0cm) LVDd5.0 (3.5-5.6cm)Aortic Root3.2 (2.0-3.7cm) PWd0.8 (0.7-1.1cm)Aortic Cusp Exc.1.7 (1.5-2.0cm) LVDs2.9 (2.5-4.0cm) PWs1.5 cm Technically difficult study due to poor acoustic windows. Study quality precludes accurate assessment of regional wall motion. Normal left ventricular chamber size, systolic function and wall motion. Left ventricular ejection fraction estimated to be 55 %. Mild left ventricular hypertrophy. Anterior Echo-free space, may be due to pericardial fat or effusion. All other cardiac chamber sizes are within normal limits. Mild focal aortic valve sclerosis with adequate cusp excursion. Mildly thickened mitral valve leaflets with normal excursion. Mild mitral annulus and aortic root calcification. Pulmonic valve not well visualized. Normal tricuspid valve structure. IVC dilated at 2.1 cm with physiologic collapse. A color flow and spectral Doppler study was performed and revealed: Moderate aortic regurgitation. Mild to moderate mitral regurgitation. Mitral inflow velocities indicates left ventricular diastolic function could not be determined due to arrhythmia. Mild to moderate tricuspid regurgitation. Tricuspid systolic velocities suggests peak right ventricular systolic pressure of 37 mmHg, consistent with mild pulmonary hypertension. Trace pulmonic regurgitation present.
--- NOTE | 2017-04-16 02:00 | Progress Note ---
DATE: 04/14/2017 CARDIOLOGY PROGRESS NOTE: SUBJECTIVE: The patient is off BiPAP. No respiratory distress. OBJECTIVE: VITAL SIGNS: Stable. Blood pressure is 124/74, pulse 81, respiratory rate 19, and sinus rhythm. NECK: Supple. LUNGS: Few rhonchi. CARDIAC: Regular rhythm and rate. Normal S1 and S2 with a fourth heart sound. ABDOMEN: Soft. EXTREMITIES: No edema. LABORATORY DATA: White count is 5.7 and hemoglobin 10.6. Potassium is 3.6 and magnesium 1.4. IMPRESSION: 1. Hypomagnesemia. 2. Hypokalemia. 3. Paroxysmal atrial fibrillation. 4. Acute and chronic diastolic congestive heart failure, now compensated. 5. Respiratory failure, improved. 6. Severe sepsis. 7. Healthcare-acquired pneumonia. 8. Iron-deficiency anemia. PLAN: 1. Replace potassium orally as needed. 2. Intravenous magnesium. 3. Complete antibiotics, per Infectious Disease wig sales consultant. 4. Respiratory hygiene. 5. No additional diuresis at this time. 6. Continue current cardiovascular regimen. 7. Stable to complete recovery at senior living facility. Milton Echevarria M.D. DR: Vanda JOB#: [id number] CC:
--- NOTE | 2017-04-16 02:45 | Discharge Summary 2 SIG ---
DATE OF ADMISSION: 04/09/2017 DATE OF DISCHARGE: 04/14/2017 REASON FOR ADMISSION: 87-year-old female was sent from the detention facility for evaluation of sepsis. The patient was in the detention facility, had fever for a day and hypotension. The patient DNR/DNI status. Dr. Echevarria , who is the primary medical doctor, who called and requested tele admission. Workup in the emergency room revealed that the patient was hypotensive, tachycardic, and febrile. Blood pressure not improved with fluid bolus. The patient was started on the IV fluids. Tylenol per rectum given. The patient with DNR/DNI status. Daughter was at the bedside. The daughter did not want intubation, but agreeable for BiPAP for oxygenation. The patient had to give Ativan with improvement in oxygenation prior to start of the BiPAP . The patient was placed on the BiPAP. A central line was placed for possible pressors. Workup revealed WBC initially within normal range, repeated in 2 hours -38.1. AST- 118, ALT -43, and alkaline phosphatase -127. BUN -21 and creatinine -1.1. Lactic acid - 8.5. Urinalysis with evidence of urinary tract infection. Chest x-ray with possible pneumonia. Chest x-ray also confirmed correct placement of central line. EKG showed normal sinus rhythm and multiple premature ventricular contractions, no acute ischemic changes.. Troponin negative. Since the blood pressure not improved with IV boluses, the patient was started on Levophed. Levophed dose maxed out, but blood pressure was still low. The patient was started on dopamine. Dopamine was causing tachycardia to 140 and was switched to vasopressin. Levophed dose was still maxed out. Vasopressor was not available. Dopamine restarted at low dose. Heart rate down to 116. Mean arterial pressure stable above 65. The patient was transferred to intensive care unit. ADMITTING DIAGNOSES: 1. Septic shock. 2. Sepsis. 3. Possible healthcare-associated pneumonia. 4. Urinary tract infection. 5. Acute kidney injury. 6. Transaminitis/likely shocked liver. 7. Acute respiratory failure, requiring BiPAP. 8. lactic acidosis HOSPITAL COURSE: The patient was admitted to intensive care unit. The patient with DNR/DNI status. Hemodynamic support with pressors provided. Volume resuscitation maintained. Broad-spectrum antibiotics started. DVT and GI prophylaxis provided. BiPAP titrated to keep FiO2 above 92%. Pulmonary toilet provided as needed. Laboratory values were closely monitored. ID, Cardiology and alum mixer followed. Per ID, blood culture positive for Morganella and Proteus. Repeated blood culture still positive. Last blood culture on 04/13/2017, preliminary negative. Urine culture positive for Proteus. Stool for C. diff negative. Sputum culture never collected. Per ID, the patient needs to complete total two weeks of antibiotic course for bacteremia. Leukocytosis resolved. Afebrile. As the patient's clinical condition improved, the patient was able to be weaned from the BiPAP to oxygen via nasal cannula. Pulse oximetry was stable. Pro BNP was trending down. According to analytical lab analyst, the patient had acute on chronic diastolic congestive heart failure and to be continued with diuresis on as needed basis. The patient was eventually off pressors. Blood pressure stabilized. As the patient's clinical condition improved, the patient needed antihypertensive medication to be started and titrated due to history of hypertension. The patient exhibited evidence of paroxysmal atrial fibrillation, but rate was controlled and for the last two days in normal sinus rhythm. No anticoagulation given advanced age and DNR/DNI status. Aspirin was continued. Lactic acid was trending down. LFT trending down. Hepatitis panel negative, likely shocked liver. Quality Assurance Representative followed. The patient had anemia. Hemoglobin and hematocrit were closely monitored. Anemia secondary to chronic disease, patient also exhibited thrombocytopenia. Quality Assurance Representative was concerned for possible disseminated intravascular coagulation due to septic shock with bacteremia, however, DIC panel was negative. Fibrinogen was within normal limits. Roll Hauler followed. The patient had acute kidney injury on admission, likely secondary to shock, hypotension, and dehydration ,which resolved as patient's condition improved. Prior to discharge, renal parameters stable. BUN- 9 and creatinine -0.4. Electrolyte abnormality were addressed and corrected, in particular hypokalemia and hypomagnesemia. Dietary evaluation completed. Tube feeding formula changed as per dietary recommendations, added Pro-source pack daily. The patient was stable for discharge back to detention facility. DNR/DNI status. FINAL DIAGNOSES: 1. Septic shock, resolved. 2. Sepsis with bacteremia. 3. Bacteremia with Proteus and Morganella, due to urinary tract infection. 4. Urinary tract infection with Proteus. 5. Probable healthcare-associated pneumonia. 6. Acute hypoxemic respiratory failure, requiring BiPAP, resolved. 7. Acute kidney injury likely secondary to shock, hypotension, and dehydration, resolved. 8. Shocked liver. 9. Chronic obstructive pulmonary disease. 10. History of hypertension. 11. Advanced dementia. 12. Anemia of chronic disease. 13. Electrolyte abnormalities (hypokalemia and hypomagnesemia). 14. Lactic acidosis, resolved. 15. Thrombocytopenia. 16. Paroxysmal atrial fibrillation. 17. Acute on chronic diastolic congestive heart failure. 18. Mild protein-calorie malnutrition. . DISCHARGE MEDICATIONS: See medication reconciliation list. Continue antibiotics to complete course of antibiotics for bacteremia as recommended by ID. DISCHARGE INSTRUCTIONS: The patient was discharged to detention facility. Follow up with the medical doctor at the facility. Ja Damon M.D. I have been assigned to dictate discharge summary on this account and I was not involved in the patient's management. Josephine Lahetal N.PDebi DR: EMILIANO JOB#: [id number] CC: [email or web address]
--- NOTE | 2017-04-16 07:58 | Diagnostic Imaging Report ---
APPROVED REPORT CPT Code: 29319 Present Symptoms Shortness of breath Comments: Hx of Shock BILATERAL: Imaging reveals a patent deep venous system bilaterally. There is no evidence of thrombus within the femoral, popliteal or tibial segments. The greater saphenous veins are also within normal limits. Doppler indicates normal spontaneous flow within these segments
== END 2017-04-14 17:56 | DRG 720 ==
LOC: EDBD 02:22 → EMR 02:51 → ICU 03:25 → EDBEDREQ 04:25 → EDBEDREQSVC 04:45 → EDBEDREQ 07:42 → 2E 04-11 12:25
PROC: 5A09457 Assistance with Respiratory Ventilation, 24-96 Consecutive Hours, Continuous Positive Airway Pressure (ICD-10-PCS; principal; 2017-04-09)
PROC: 06HY33Z Insertion of Infusion Device into Lower Vein, Percutaneous Approach (ICD-10-PCS; 2017-04-09)
DX: A41.9 Sepsis, unspecified organism (principal); K72.00 Acute and subacute hepatic failure without coma; J96.01 Acute respiratory failure with hypoxia; R65.21 Severe sepsis with septic shock; I50.33 Acute on chronic diastolic (congestive) heart failure; D69.6 Thrombocytopenia, unspecified; N17.9 Acute kidney failure, unspecified; J18.9 Pneumonia, unspecified organism; E44.1 Mild protein-calorie malnutrition; I51.3 Intracardiac thrombosis, not elsewhere classified; G30.9 Alzheimer's disease, unspecified; F02.80 Dementia in other diseases classified elsewhere, unspecified severity, without behavioral disturbance, psychotic disturbance, mood disturbance, and anxiety; Z43.1 Encounter for attention to gastrostomy; D50.9 Iron deficiency anemia, unspecified; N39.0 Urinary tract infection, site not specified; B96.4 Proteus (mirabilis) (morganii) as the cause of diseases classified elsewhere; B96.89 Other specified bacterial agents as the cause of diseases classified elsewhere; D63.8 Anemia in other chronic diseases classified elsewhere; E87.6 Hypokalemia; Z66 Do not resuscitate; E86.0 Dehydration; J44.9 Chronic obstructive pulmonary disease, unspecified; I48.0 Paroxysmal atrial fibrillation; E83.42 Hypomagnesemia
CPT/HCPCS: 36415; 36600; 71010; 80048; 80053; 80150; 81003; 82140; 82248; 82270; 82550; 82553; 82607; 82728; 82803; 83010; 83540; 83550; 83605; 83735; 83880; 84443; 84484; 85007; 85025; 85044; 85060; 85384; 85610; 86705; 86709; 86803; 87040; 87081; 87086; 87181; 87324; 87340; 93005; 93306; 93970; 94660; 94664; 94760; J2405